=== PATIENT | male | born 1940 | race Caucasian/White ===

== ENCOUNTER 2017-11-09 16:49 | Inpatient (IN) | payer OTHER ==
[~2017-11-09] VITALS: Ht 167.6 cm; Wt 93.7 kg
[~2017-11-09 16:49] MED LIST: ACET325 PO; ALUM-MAG HYDRO360 ML PO; AMLO5 PO; ASPI81CH PO; ASPI81EC PO; ATOR40TA PO; BACITRACIN ZIN1 EACH TOP; BISA10S PR; CAND32 PO; CARV3.125 PO; CLOP75 PO; Combigan Eye Dro5 ML BOTHEARS; Coumadin2 MG PO; ELIQUIS5 MG PO; ERGO400 PO; ESCI20 PO; ESOM20 PO; FAMO20 PO; FURO40 PO; FURO80 PO; GABA100 PO; GLIM4 PO; INSULANI SC; INSULANPEN SC; JAKAFI20 MG PO; LEVSOD100 PO; LOPE2C PO; LOSA25 PO; METF500 PO; METF500C PO; METO2.5 PO; MUPIROCIN1 GM TOP; Milk Of Ma400 MG/5 M PO; NITR.4SL SL; Nitrostat0.4 MG SL; POTA10T PO; POTCHL10ER PO; POTCHL20ER PO; PROC25S PR; SIMV40 PO; THIA100 PO; VASELINE18 ML; WARF4 PO; [UNRECOGNIZED DRUG - REMARK] SC
[2017-11-09] MEDS ORDERED: METO2.5 PO (17:48)
[2017-11-09 17:49] LABS: BASOPHILS PERCENT AUTO 1 % (0-2); Hematocrit 22.3 % (37.0-53.0); Hemoglobin 7.1 g/dL (13.5-17.5); LYMPHOCYTES ABSOLUTE AUTO 1.54 K/mm3 (0.84-5.20); LYMPHOCYTES PERCENT AUTO 4 % (21-46); MONOCYTES ABSOLUTE AUTO 5.59 K/mm3 (0.16-1.47); MONOCYTES PERCENT AUTO 13 % (4-13); Mean Corpuscular HGB 24.6 pg (26.0-34.0); Mean Corpuscular HGB Conc 31.8 g/dL (31.5-36.5); Mean Corpuscular Volume 77 fL (80-100); NRBC Auto 1.8 /100 WBC (0.0-0.2); Platelet Count 380 K/mm3 (150-400); RDW Coefficient Variation 26.5 % (11.7-14.2); RDW Standard Deviation 71.5 fL (35.1-46.3); Red Blood Cell Count 2.89 M/mm3 (4.30-5.90)
[2017-11-09] MEDS ORDERED: METF500 PO (17:49)
[2017-11-09] MEDS ORDERED: BUME1 PO (17:49)
[2017-11-09 17:51] LABS: EOSINOPHILS ABSOLUTE AUTO 0.27 K/mm3 (0.00-0.68); EOSINOPHILS PERCENT AUTO 1 % (0-6); IMMATURE GRAN ABSOLUTE AUTO 5.44 K/mm3 (0.00-0.10); IMMATURE GRAN PERCENT AUTO 13 % (0-1); Mean Platelet Volume 10.3 fL (9.1-12.4); NEUTROPHILS ABSOLUTE AUTO 30.36 K/mm3 (1.96-9.15); NEUTROPHILS PERCENT AUTO 70 % (41-73)
[2017-11-09 18:02] LABS: Albumin, Blood 3.1 g/dL (3.4-5.0); Albumin/Globulin Ratio 0.7 (0.8-1.8); Bilirubin, Total 1.6 mg/dL (0.1-1.0); Bun/Creatinine Ratio 28.7 (12.0-20.0); Calcium, Blood 8.1 mg/dL (8.5-10.1); Creatinine, Blood 1.43 mg/dL (0.60-1.20); Globulin, Blood 4.4 g/dL (2.2-4.0); Magnesium, Blood 1.9 mg/dL (1.6-2.4); Potassium, Blood 3.5 mmol/L (3.5-5.5); Total Protein, Blood 7.5 g/dL (6.4-8.2); Troponin I 0.025 ng/mL (0.000-0.040)
[2017-11-09 19:28] LABS: BASOPHILS ABSOLUTE MAN 0.43 K/mm3 (0.00-0.23); BASOPHILS PERCENT MAN 1 % (0-2); EOSINOPHILS ABSOLUTE MAN 0.43 K/mm3 (0.00-0.68); EOSINOPHILS PERCENT MAN 1 % (0-6); LYMPHOCYTES ABSOLUTE MAN 7.37 K/mm3 (0.84-5.20); LYMPHOCYTES PERCENT MAN 17 % (21-46); MONOCYTES ABSOLUTE MAN 0.43 K/mm3 (0.16-1.47); MONOCYTES PERCENT MAN 1 % (4-13); NEUTROPHILS ABSOLUTE MAN 34.72 K/mm3 (1.96-9.15); SEG NEUTROPHILS PERCENT MAN 80 % (41-73); TOTAL CELLS COUNTED 100
[2017-11-09 21:35] LABS: Thyroid Stimulating Hormone 16.8 uIU/mL (0.360-4.800)
[2017-11-09 23:55] LABS: Creatine Kinase MB 2.8 ng/mL (0.0-3.6); Creatine Kinase MB Index 5.2 (0.0-4.0); Troponin I 0.024 ng/mL (0.000-0.040)
[2017-11-10 02:17] LABS: Source, Urine Clean Catch
[2017-11-10 02:19] LABS: Bilirubin, Urine Neg (Neg); Blood, Urine Neg (Neg); Glucose Qualitative, Urine Neg (Neg); Ketones, Urine Neg (Neg); Leukocyte Esterase, Urine 1+ (Neg); Nitrite, Urine Neg (Neg); Protein, Urine Neg (Neg); Urobilinogen, Urine NORM (Normal); pH, Urine 6.5 (5.0-8.0)
[2017-11-10 02:20] LABS: Appearance, Urine Clear (Clear); Color, Urine Yellow (P-Yellow)
[2017-11-10 02:41] LABS: Amorphous Light (0-Heavy); Bacteria Rare /hpf; Hyaline Casts 0-2 /lpf (0-2); Red Blood Cells, Urine Not Seen /hpf (0-2); Squamous Epithelial Cells Few /hpf (Few)
[2017-11-10 02:43] LABS: Transitional Epithelial Cells Few /hpf (0-Rare)
[2017-11-10 06:07] LABS: Albumin/Globulin Ratio 0.7 (0.8-1.8); Bilirubin, Total 1.5 mg/dL (0.1-1.0); Bun/Creatinine Ratio 28.1 (12.0-20.0); Calcium, Blood 8.3 mg/dL (8.5-10.1); Creatinine, Blood 1.39 mg/dL (0.60-1.20); Globulin, Blood 4.5 g/dL (2.2-4.0); Phosphorus, Blood 4.2 mg/dL (2.5-4.9); Total Protein, Blood 7.5 g/dL (6.4-8.2)
[2017-11-10 06:17] LABS: Creatine Kinase MB 2.7 ng/mL (0.0-3.6); Creatine Kinase MB Index 5.3 (0.0-4.0); Troponin I 0.029 ng/mL (0.000-0.040)
[2017-11-11 04:26] LABS: Mean Corpuscular HGB 23.7 pg (26.0-34.0); Mean Corpuscular HGB Conc 31.8 g/dL (31.5-36.5); Mean Corpuscular Volume 75 fL (80-100); Mean Platelet Volume 10.4 fL (9.1-12.4); NRBC ABSOLUTE 1.47 K/mm3 (0.00-0.02); NRBC Auto 3.3 /100 WBC (0.0-0.2); Platelet Count 397 K/mm3 (150-400); RDW Standard Deviation 70.5 fL (35.1-46.3); Red Blood Cell Count 2.95 M/mm3 (4.30-5.90); White Blood Cell Count 43.96 K/mm3 (4.00-11.30)
[2017-11-11 04:47] LABS: Anion Gap 10 mmol/L (6-16); Blood Urea Nitrogen 38 mg/dL (8-24); Bun/Creatinine Ratio 28.1 (12.0-20.0); CO2, Blood 28 mmol/L (21-32); Calcium, Blood 8.3 mg/dL (8.5-10.1); Chloride, Blood 91 mmol/L (98-108); Creatinine, Blood 1.35 mg/dL (0.60-1.20); Glomerular Filtration Rate 54 (60-); Glucose, Blood 106 mg/dL (70-99); Magnesium, Blood 1.8 mg/dL (1.6-2.4); Phosphorus, Blood 3.9 mg/dL (2.5-4.9); Potassium, Blood 3.1 mmol/L (3.5-5.5); Sodium, Blood 129 mmol/L (136-145)
[2017-11-11 05:32] LABS: BAND PERCENT MAN 8 % (0-8); BASOPHILS PERCENT MAN 0 % (0-2); EOSINOPHILS PERCENT MAN 0 % (0-6); LYMPHOCYTES ABSOLUTE MAN 2.63 K/mm3 (0.84-5.20); LYMPHOCYTES PERCENT MAN 6 % (21-46); METAMYELOCYTE ABSOLUTE MAN 1.31 K/mm3 (0.00-0.00); METAMYELOCYTE PERCENT MAN 3 % (0-0); MONOCYTES ABSOLUTE MAN 3.51 K/mm3 (0.16-1.47); MONOCYTES PERCENT MAN 8 % (4-13); NEUTROPHILS ABSOLUTE MAN 36.48 K/mm3 (1.96-9.15); SEG NEUTROPHILS PERCENT MAN 75 % (41-73); TOTAL CELLS COUNTED 100
[2017-11-12 05:21] LABS: Hematocrit 23.1 % (37.0-53.0); Hemoglobin 7.2 g/dL (13.5-17.5); Mean Corpuscular HGB 23.6 pg (26.0-34.0); Mean Corpuscular HGB Conc 31.2 g/dL (31.5-36.5); Mean Corpuscular Volume 76 fL (80-100); Mean Platelet Volume 10.8 fL (9.1-12.4); NRBC ABSOLUTE 1.75 K/mm3 (0.00-0.02); NRBC Auto 3.8 /100 WBC (0.0-0.2); Platelet Count 418 K/mm3 (150-400); RDW Coefficient Variation 26.8 % (11.7-14.2); Red Blood Cell Count 3.05 M/mm3 (4.30-5.90); White Blood Cell Count 46.44 K/mm3 (4.00-11.30)
[2017-11-12 05:43] LABS: BAND PERCENT MAN 8 % (0-8); BASOPHILS ABSOLUTE MAN 0.92 K/mm3 (0.00-0.23); BASOPHILS PERCENT MAN 2 % (0-2); EOSINOPHILS ABSOLUTE MAN 0.92 K/mm3 (0.00-0.68); EOSINOPHILS PERCENT MAN 2 % (0-6); LYMPHOCYTES ABSOLUTE MAN 2.78 K/mm3 (0.84-5.20); LYMPHOCYTES PERCENT MAN 6 % (21-46); METAMYELOCYTE ABSOLUTE MAN 0.92 K/mm3 (0.00-0.00); METAMYELOCYTE PERCENT MAN 2 % (0-0); MONOCYTES ABSOLUTE MAN 6.03 K/mm3 (0.16-1.47); MONOCYTES PERCENT MAN 13 % (4-13); NEUTROPHILS ABSOLUTE MAN 34.83 K/mm3 (1.96-9.15); SEG NEUTROPHILS PERCENT MAN 67 % (41-73); TOTAL CELLS COUNTED 100
[2017-11-12 05:55] LABS: Albumin, Blood 3.2 g/dL (3.4-5.0); Anion Gap 11 mmol/L (6-16); Blood Urea Nitrogen 43 mg/dL (8-24); Bun/Creatinine Ratio 29.3 (12.0-20.0); CO2, Blood 29 mmol/L (21-32); Chloride, Blood 88 mmol/L (98-108); Creatinine, Blood 1.47 mg/dL (0.60-1.20); Glomerular Filtration Rate 49 (60-); Glucose, Blood 139 mg/dL (70-99); Phosphorus, Blood 4.1 mg/dL (2.5-4.9); Potassium, Blood 3.2 mmol/L (3.5-5.5); Sodium, Blood 128 mmol/L (136-145)
[2017-11-13 04:49] LABS: Hematocrit 22.2 % (37.0-53.0); Hemoglobin 7.1 g/dL (13.5-17.5); Mean Corpuscular HGB 23.7 pg (26.0-34.0); Mean Corpuscular Volume 74 fL (80-100); NRBC ABSOLUTE 1.87 K/mm3 (0.00-0.02); NRBC Auto 4.5 /100 WBC (0.0-0.2); RDW Coefficient Variation 26.9 % (11.7-14.2); Red Blood Cell Count 2.99 M/mm3 (4.30-5.90); White Blood Cell Count 41.25 K/mm3 (4.00-11.30)
[2017-11-13 05:16] LABS: Albumin, Blood 2.9 g/dL (3.4-5.0); Albumin/Globulin Ratio 0.6 (0.8-1.8); Bilirubin, Total 1.7 mg/dL (0.1-1.0); Bun/Creatinine Ratio 32.6 (12.0-20.0); Calcium, Blood 8.8 mg/dL (8.5-10.1); Creatinine, Blood 1.38 mg/dL (0.60-1.20); Globulin, Blood 4.6 g/dL (2.2-4.0); Magnesium, Blood 1.7 mg/dL (1.6-2.4); Phosphorus, Blood 4.1 mg/dL (2.5-4.9); Potassium, Blood 3.5 mmol/L (3.5-5.5); Total Protein, Blood 7.5 g/dL (6.4-8.2)
[2017-11-13 05:45] LABS: BAND PERCENT MAN 7 % (0-8); BASOPHILS PERCENT MAN 0 % (0-2); EOSINOPHILS PERCENT MAN 3 % (0-6); LYMPHOCYTES PERCENT MAN 5 % (21-46); METAMYELOCYTE PERCENT MAN 2 % (0-0); MONOCYTES PERCENT MAN 14 % (4-13); MYELOCYTE PERCENT MAN 3 % (0-0); SEG NEUTROPHILS PERCENT MAN 66 % (41-73); TOTAL CELLS COUNTED 100
[2017-11-13 06:18] LABS: EOSINOPHILS ABSOLUTE AUTO 0.84 K/mm3 (0.00-0.68); EOSINOPHILS PERCENT AUTO 2 % (0-6); IMMATURE GRAN ABSOLUTE AUTO 6.12 K/mm3 (0.00-0.10); IMMATURE GRAN PERCENT AUTO 15 % (0-1); NEUTROPHILS ABSOLUTE AUTO 27.05 K/mm3 (1.96-9.15); NEUTROPHILS PERCENT AUTO 66 % (41-73); Platelet Count 289 K/mm3 (150-400)
[2017-11-14 05:29] LABS: Hematocrit 22.3 % (37.0-53.0); Hemoglobin 7.1 g/dL (13.5-17.5)
[2017-11-14 05:58] LABS: Magnesium, Blood 1.7 mg/dL (1.6-2.4)
[2017-11-14 05:59] LABS: Albumin, Blood 3.1 g/dL (3.4-5.0); Anion Gap 10 mmol/L (6-16); Blood Urea Nitrogen 48 mg/dL (8-24); CO2, Blood 28 mmol/L (21-32); Calcium, Blood 9.1 mg/dL (8.5-10.1); Chloride, Blood 89 mmol/L (98-108); Creatinine, Blood 1.37 mg/dL (0.60-1.20); Glomerular Filtration Rate 53 (60-); Glucose, Blood 228 mg/dL (70-99); Phosphorus, Blood 4.8 mg/dL (2.5-4.9); Potassium, Blood 3.6 mmol/L (3.5-5.5); Sodium, Blood 127 mmol/L (136-145)
[2017-11-15 05:38] LABS: Hemoglobin 7.4 g/dL (13.5-17.5)
[2017-11-15 05:59] LABS: Albumin, Blood 3.1 g/dL (3.4-5.0); Anion Gap 13 mmol/L (6-16); Blood Urea Nitrogen 49 mg/dL (8-24); Bun/Creatinine Ratio 33.6 (12.0-20.0); CO2, Blood 27 mmol/L (21-32); Calcium, Blood 9.1 mg/dL (8.5-10.1); Chloride, Blood 91 mmol/L (98-108); Creatinine, Blood 1.46 mg/dL (0.60-1.20); Glomerular Filtration Rate 49 (60-); Glucose, Blood 257 mg/dL (70-99); Magnesium, Blood 1.6 mg/dL (1.6-2.4); Phosphorus, Blood 4.3 mg/dL (2.5-4.9); Potassium, Blood 3.8 mmol/L (3.5-5.5); Sodium, Blood 131 mmol/L (136-145)
[2017-11-15 17:39] LABS: Source, Urine Catheter
[2017-11-15 17:51] LABS: Appearance, Urine Clear (Clear); Bilirubin, Urine Neg (Neg); Blood, Urine 1+ (Neg); Color, Urine Yellow (P-Yellow); Glucose Qualitative, Urine Neg (Neg); Ketones, Urine Neg (Neg); Leukocyte Esterase, Urine Neg (Neg); Nitrite, Urine Neg (Neg); Protein, Urine 2+ (Neg); Specific Gravity, Urine 1.015 (1.003-1.022); Urobilinogen, Urine NORM (Normal); pH, Urine 6.5 (5.0-8.0)
[2017-11-15 18:08] LABS: Bacteria Not Seen /hpf; Red Blood Cells, Urine Not Seen /hpf (0-2); Squamous Epithelial Cells Few /hpf (Few); White Blood Cells, Urine 0-2 /hpf (0-5)
[2017-11-16 05:38] LABS: Hematocrit 25.7 % (37.0-53.0); Hemoglobin 8.1 g/dL (13.5-17.5)
[2017-11-16 06:04] LABS: Albumin, Blood 2.9 g/dL (3.4-5.0); Anion Gap 8 mmol/L (6-16); Blood Urea Nitrogen 47 mg/dL (8-24); CO2, Blood 33 mmol/L (21-32); Calcium, Blood 8.8 mg/dL (8.5-10.1); Chloride, Blood 94 mmol/L (98-108); Creatinine, Blood 1.47 mg/dL (0.60-1.20); Glomerular Filtration Rate 49 (60-); Glucose, Blood 64 mg/dL (70-99); Magnesium, Blood 1.8 mg/dL (1.6-2.4); Phosphorus, Blood 3.9 mg/dL (2.5-4.9); Potassium, Blood 3.2 mmol/L (3.5-5.5); Sodium, Blood 135 mmol/L (136-145)
[2017-11-16] MEDS ORDERED: DOCU100 PO (14:35)
[2017-11-16] MEDS ORDERED: PARO20 PO (14:36)
[2017-11-16] MEDS ORDERED: SPIR25 PO (14:36)
[2017-11-16] MEDS ORDERED: LEVEMIR FL100 UNIT/1 SC (14:36)
[2018-08-29] MEDS ORDERED: Allopurinol100 MG PO (10:49)
[2018-08-29] MEDS ORDERED: FERRIC CITRATE210 MG PO (10:49)
[2018-08-29] MEDS ORDERED: METO2.5 PO (10:50)
[2018-09-08] MEDS ORDERED: CYAN1000I IM (13:31)
[2018-09-08] MEDS ORDERED: AURYXIA PO (13:31)
[2018-09-08] MEDS ORDERED: MIRT15 PO (13:32)
[2018-09-08] MEDS ORDERED: BUME2 PO (13:34)
[2018-09-08] MEDS ORDERED: LIDOCAINE PAIN1 EACH TOP (13:36)
[2018-09-08] MEDS ORDERED: INSULIN (15:28)
[2018-09-18] MEDS ORDERED: GABA100 PO (09:40)
[2018-09-18] MEDS ORDERED: Humalog100 UNIT/3 SC (09:41)
[2018-09-18] MEDS ORDERED: LIDO700A20 TOP (09:42)
[2018-09-18] MEDS ORDERED: MIRALAX17 GM PO (09:43)
[2018-09-18] MEDS ORDERED: SODBIC650 PO (09:43)
== END 2017-11-16 15:57 | disposition home or self-care (01) | DRG 291 ==
LOC: ER 16:49 → PCU 20:32 → MEDS 20:32 → PCU 23:00 → MEDS 11-13 16:37 → ENPENDDIS 11-16 10:16 → MEDS 11-16 15:57
PROVIDERS: Emergency Medicine; Family Medicine; Internal Medicine; Internal Medicine Nephrology
DX: I13.0 Hypertensive heart and chronic kidney disease with heart failure and stage 1 through stage 4 chronic kidney disease, or unspecified chronic kidney disease (principal); I50.43 Acute on chronic combined systolic (congestive) and diastolic (congestive) heart failure; N17.0 Acute kidney failure with tubular necrosis; E11.22 Type 2 diabetes mellitus with diabetic chronic kidney disease; C94.6 Myelodysplastic disease, not elsewhere classified; D75.81 Myelofibrosis; R16.1 Splenomegaly, not elsewhere classified; E87.1 Hypo-osmolality and hyponatremia; E88.09 Other disorders of plasma-protein metabolism, not elsewhere classified; N18.3 Chronic kidney disease, stage 3 (moderate); D63.8 Anemia in other chronic diseases classified elsewhere; F02.80 Dementia in other diseases classified elsewhere, unspecified severity, without behavioral disturbance, psychotic disturbance, mood disturbance, and anxiety; G30.9 Alzheimer's disease, unspecified; E87.6 Hypokalemia; F41.9 Anxiety disorder, unspecified; F32.9 Major depressive disorder, single episode, unspecified; E78.5 Hyperlipidemia, unspecified; E03.9 Hypothyroidism, unspecified; I25.10 Atherosclerotic heart disease of native coronary artery without angina pectoris; G89.29 Other chronic pain; M54.9 Dorsalgia, unspecified; I25.5 Ischemic cardiomyopathy; I48.2 Chronic atrial fibrillation; E11.65 Type 2 diabetes mellitus with hyperglycemia; Z86.73 Personal history of transient ischemic attack (TIA), and cerebral infarction without residual deficits; Z95.5 Presence of coronary angioplasty implant and graft; Z95.1 Presence of aortocoronary bypass graft; Z88.0 Allergy status to penicillin; Z88.2 Allergy status to sulfonamides; Z88.8 Allergy status to other drugs, medicaments and biological substances; Z95.0 Presence of cardiac pacemaker; Z79.4 Long term (current) use of insulin; Z79.82 Long term (current) use of aspirin; Z79.84 Long term (current) use of oral hypoglycemic drugs; Z79.899 Other long term (current) drug therapy; E66.9 Obesity, unspecified; Z68.33 Body mass index [BMI] 33.0-33.9, adult; Z78.1 Physical restraint status
CPT/HCPCS: 36415; 36430; 51798; 71046; 74176; 76770; 80053; 80069; 81001; 82550; 82553; 82947; 83036; 83735; 83880; 84100; 84132; 84443; 84484; 85014; 85018; 85025; 86850; 86900; 86901; 86923; 87040; 87077; 87086; 92610; 93005; 93010; 93306; 96374; 99285; G8996; G8997; J0881; J1650; J1815; J3480; J7030; P9016

== ENCOUNTER 2018-10-30 21:34 | Emergency (ER) | payer OTHER ==
[~2018-10-30] VITALS: Ht 167.6 cm; Wt 198.2 kg
[~2018-10-30 21:34] MED LIST changes: -ASPI81CH PO; +Allopurinol100 MG PO; +Aspirin EC81 MG PO; +BUME1 PO; +BUME2 PO; +CYAN1000I IM; +DOCU100 PO; +FERRIC CITRATE210 MG PO; +Humalog100 UNIT/3 SC; +INSULIN; +LEVEMIR FL100 UNIT/1 SC; +LIDO700A20 TOP; +LIDOCAINE PAIN1 EACH TOP; +MIRALAX17 GM PO; +MIRT15 PO; +PARO20 PO; +SODBIC650 PO; +SPIR25 PO; +Synthroid112 MCG PO
[2018-10-30] MEDS ORDERED: CYAN1000I IM (22:21)
[2018-10-30] MEDS ORDERED: Novolog100 UNIT/2 SC (22:29)
[2018-10-30] MEDS ORDERED: INSULANPEN SC (22:30)
[2018-10-30] MEDS ORDERED: Loperamide2 MG PO (22:33)
[2018-10-30] MEDS ORDERED: Biscolax10 MG PR (22:33)
[2018-10-30] MEDS ORDERED: Antacid Maximu355 ML PO (22:34)
[2018-10-30] MEDS ORDERED: LORA.5 PO (22:36)
[2018-10-30] MEDS ORDERED: Milk Of Ma400 MG/5 M PO (22:37)
[2018-10-30] MEDS ORDERED: NITR.4SL SL (22:38)
[2018-10-30 23:31] LABS: BASOPHILS ABSOLUTE AUTO 0.85 K/mm3 (0.00-0.23); BASOPHILS PERCENT AUTO 1 % (0-2); EOSINOPHILS ABSOLUTE AUTO 4.17 K/mm3 (0.00-0.68); EOSINOPHILS PERCENT AUTO 7 % (0-6); Hematocrit 38.1 % (37.0-53.0); Hemoglobin 11.8 g/dL (13.5-17.5); IMMATURE GRAN ABSOLUTE AUTO 6.37 K/mm3 (0.00-0.10); IMMATURE GRAN PERCENT AUTO 11 % (0-1); LYMPHOCYTES ABSOLUTE AUTO 1.55 K/mm3 (0.84-5.20); LYMPHOCYTES PERCENT AUTO 3 % (21-46); MONOCYTES ABSOLUTE AUTO 4.74 K/mm3 (0.16-1.47); MONOCYTES PERCENT AUTO 8 % (4-13); Mean Corpuscular HGB 29.8 pg (26.0-34.0); Mean Corpuscular Volume 96 fL (80-100); Mean Platelet Volume 11.6 fL (9.1-12.4); NEUTROPHILS ABSOLUTE AUTO 41.91 K/mm3 (1.96-9.15); NEUTROPHILS PERCENT AUTO 70 % (41-73); NRBC ABSOLUTE 0.74 K/mm3 (0.00-0.02); NRBC Auto 1.2 /100 WBC (0.0-0.2); Platelet Count 352 K/mm3 (150-400); RDW Coefficient Variation 22.2 % (11.7-14.2); Red Blood Cell Count 3.96 M/mm3 (4.30-5.90)
[2018-10-30 23:32] LABS: White Blood Cell Count 59.59 K/mm3 (4.00-11.30)
[2018-10-30 23:45] LABS: Alanine Aminotransfer (ALT/SGP 32 U/L (12-78); Albumin, Blood 2.7 g/dL (3.4-5.0); Albumin/Globulin Ratio 0.6 (0.8-1.8); Alk Phos 224 U/L (50-136); Anion Gap 10 mmol/L (6-16); Aspartate Aminotrans (AST/SGOT 47 U/L (12-37); Bilirubin, Total 0.7 mg/dL (0.1-1.0); Blood Urea Nitrogen 55 mg/dL (8-24); Bun/Creatinine Ratio 21.5 (12.0-20.0); CO2, Blood 26 mmol/L (21-32); Calcium, Blood 7.8 mg/dL (8.5-10.1); Chloride, Blood 104 mmol/L (98-108); Creatinine, Blood 2.56 mg/dL (0.60-1.20); Globulin, Blood 4.8 g/dL (2.2-4.0); Glomerular Filtration Rate 26 (60-); Glucose, Blood 143 mg/dL (70-99); Potassium, Blood 4.1 mmol/L (3.5-5.5); Sodium, Blood 140 mmol/L (136-145); Total Protein, Blood 7.5 g/dL (6.4-8.2); Troponin I <0.015 ng/mL (0.000-0.040)
[2018-10-30 23:47] LABS: BAND PERCENT MAN 9 % (0-8); BASOPHILS ABSOLUTE MAN 0.59 K/mm3 (0.00-0.23); BASOPHILS PERCENT MAN 1 % (0-2); EOSINOPHILS ABSOLUTE MAN 1.19 K/mm3 (0.00-0.68); EOSINOPHILS PERCENT MAN 2 % (0-6); LYMPHOCYTES ABSOLUTE MAN 2.38 K/mm3 (0.84-5.20); LYMPHOCYTES PERCENT MAN 4 % (21-46); METAMYELOCYTE ABSOLUTE MAN 2.97 K/mm3 (0.00-0.00); METAMYELOCYTE PERCENT MAN 5 % (0-0); MONOCYTES ABSOLUTE MAN 4.17 K/mm3 (0.16-1.47); MONOCYTES PERCENT MAN 7 % (4-13); MYELOCYTE ABSOLUTE MAN 1.19 K/mm3 (0.00-0.00); MYELOCYTE PERCENT MAN 2 % (0-0); NEUTROPHILS ABSOLUTE MAN 47.07 K/mm3 (1.96-9.15); SEG NEUTROPHILS PERCENT MAN 70 % (41-73); TOTAL CELLS COUNTED 100
== END 2018-10-31 02:32 | disposition home or self-care (01) ==
LOC: ER 21:34
PROVIDERS: Emergency Medicine
DX: E11.22 Type 2 diabetes mellitus with diabetic chronic kidney disease (principal); N18.9 Chronic kidney disease, unspecified; R60.1 Generalized edema; I95.9 Hypotension, unspecified; Z88.0 Allergy status to penicillin; Z88.2 Allergy status to sulfonamides; Z88.1 Allergy status to other antibiotic agents; Z79.899 Other long term (current) drug therapy; Z79.4 Long term (current) use of insulin; Z79.82 Long term (current) use of aspirin; I25.2 Old myocardial infarction; F03.90 Unspecified dementia, unspecified severity, without behavioral disturbance, psychotic disturbance, mood disturbance, and anxiety; Z86.73 Personal history of transient ischemic attack (TIA), and cerebral infarction without residual deficits
CPT/HCPCS: 36415; 71046; 76705; 80053; 83880; 84484; 85025; 93005; 93010; 99285-25

== ENCOUNTER 2018-12-05 08:38 | Inpatient (IN) | payer OTHER ==
[~2018-12-05] VITALS: Ht 172.7 cm; Wt 84.2 kg
[~2018-12-05 08:38] MED LIST changes: +Antacid Maximu355 ML PO; +Biscolax10 MG PR; +LORA.5 PO; +Loperamide2 MG PO; +Novolog100 UNIT/2 SC
[2018-12-05 09:02] LABS: Hematocrit 39.9 % (37.0-53.0); Hemoglobin 12.4 g/dL (13.5-17.5); Mean Corpuscular HGB 28.8 pg (26.0-34.0); Mean Corpuscular HGB Conc 31.1 g/dL (31.5-36.5); Mean Corpuscular Volume 93 fL (80-100); Mean Platelet Volume 10.4 fL (9.1-12.4); NRBC ABSOLUTE 0.51 K/mm3 (0.00-0.02); NRBC Auto 0.8 /100 WBC (0.0-0.2); Platelet Count 233 K/mm3 (150-400); RDW Coefficient Variation 22.8 % (11.7-14.2); RDW Standard Deviation 75.4 fL (35.1-46.3)
[2018-12-05 09:11] LABS: White Blood Cell Count 61.47 K/mm3 (4.00-11.30)
[2018-12-05 09:28] LABS: BAND PERCENT MAN 6 % (0-8); BASOPHILS ABSOLUTE MAN 0.61 K/mm3 (0.00-0.23); BASOPHILS PERCENT MAN 1 % (0-2); EOSINOPHILS PERCENT MAN 0 % (0-6); LYMPHOCYTES ABSOLUTE MAN 1.22 K/mm3 (0.84-5.20); LYMPHOCYTES PERCENT MAN 2 % (21-46); METAMYELOCYTE ABSOLUTE MAN 0.61 K/mm3 (0.00-0.00); METAMYELOCYTE PERCENT MAN 1 % (0-0); MONOCYTES ABSOLUTE MAN 1.84 K/mm3 (0.16-1.47); MONOCYTES PERCENT MAN 3 % (4-13); MYELOCYTE PERCENT MAN 7 % (0-0); NEUTROPHILS ABSOLUTE MAN 52.24 K/mm3 (1.96-9.15); PROMYELOCYTE ABSOLUTE MAN 0.61 K/mm3 (0.00-0.00); PROMYELOCYTE PERCENT MAN 1 % (0-0); SEG NEUTROPHILS PERCENT MAN 79 % (41-73); TOTAL CELLS COUNTED 100
[2018-12-05 09:34] LABS: Source, Urine Catheter
[2018-12-05 09:40] LABS: Albumin, Blood 2.8 g/dL (3.4-5.0); Albumin/Globulin Ratio 0.6 (0.8-1.8); Bilirubin, Total 0.9 mg/dL (0.1-1.0); Calcium, Blood 8.1 mg/dL (8.5-10.1); Creatinine, Blood 2.84 mg/dL (0.60-1.20); Globulin, Blood 4.8 g/dL (2.2-4.0); Potassium, Blood 4.4 mmol/L (3.5-5.5); Total Protein, Blood 7.6 g/dL (6.4-8.2)
[2018-12-05 09:46] LABS: Appearance, Urine Clear (Clear); Bilirubin, Urine Neg (Neg); Blood, Urine 1+ (Neg); Color, Urine Yellow (P-Yellow); Glucose Qualitative, Urine Neg (Neg); Ketones, Urine Neg (Neg); Leukocyte Esterase, Urine Neg (Neg); Nitrite, Urine Neg (Neg); Protein, Urine 3+ (Neg); Urobilinogen, Urine 1+ (Normal)
[2018-12-05 10:27] LABS: Red Blood Cells, Urine 0-2 /hpf (0-2); White Blood Cells, Urine Rare /hpf (0-5)
[2018-12-05 10:28] LABS: Squamous Epithelial Cells Not Seen /hpf (Few)
[2018-12-05 10:29] LABS: Amorphous Light (0-Heavy)
[2018-12-05 10:32] LABS: Bacteria Mod /hpf
[2018-12-05 10:53] LABS: U Amphetamine Screen Not Detected; U Barbituate Screen Not Detected; U Benzodiazapine Screen Not Detected; U Buprenorphine Screen Not Detected; U Cannabinoids Screen Not Detected; U Cocaine Screen Not Detected; U Methadone Screen Not Detected; U Methamphetamine Screen Not Detected; U Opiates Screen Not Detected; U Oxycodone Screen Not Detected; U Phencyclidine Screen Not Detected; U Propoxyphene Screen Not Detected
--- NOTE | 2018-12-05 15:13 | NUR ---
Telephone report recieved from RASHAD Blanco, at this time. Anticipate admission of patient to PCU 4 shortly.
[2018-12-05] MEDS ORDERED: BUME2 PO (15:59)
--- NOTE | 2018-12-05 17:41 | NUR ---
The patient was admitted to PCU 4 shortly after 3 pm today. His daughter and son-in-law were accompanying him. The pt was awake, talking, joking around, and appropriate in conversation. Hourly blood sugar have been checked and he has started to eat. Call to Dr. Eagle regarding his IVF and the daughter's concerns because of a recent problem with IVF and fluid overload during a recent admission. The pt is closely followed by Dr. Webb as an outpatient for chronic kidney failure. He also has CHF. The daughter, who is the pt's POA, also was not wanting the pt to receive lovenox due to his blood disorder. These concerns were discussed with the hospitalist. The pt has been eating and has a hearty appetite.
[2018-12-06 04:11] LABS: BASOPHILS ABSOLUTE AUTO 0.76 K/mm3 (0.00-0.23); BASOPHILS PERCENT AUTO 2 % (0-2); Hematocrit 35.3 % (37.0-53.0); Hemoglobin 11.3 g/dL (13.5-17.5); Mean Corpuscular HGB 28.6 pg (26.0-34.0); Mean Platelet Volume 12.5 fL (9.1-12.4); NRBC ABSOLUTE 0.55 K/mm3 (0.00-0.02); NRBC Auto 1.1 /100 WBC (0.0-0.2); Platelet Count 282 K/mm3 (150-400); RDW Coefficient Variation 23.1 % (11.7-14.2); Red Blood Cell Count 3.95 M/mm3 (4.30-5.90); White Blood Cell Count 48.73 K/mm3 (4.00-11.30)
[2018-12-06 04:13] LABS: EOSINOPHILS ABSOLUTE AUTO 3.45 K/mm3 (0.00-0.68); EOSINOPHILS PERCENT AUTO 7 % (0-6); IMMATURE GRAN PERCENT AUTO 14 % (0-1); LYMPHOCYTES ABSOLUTE AUTO 2.07 K/mm3 (0.84-5.20); LYMPHOCYTES PERCENT AUTO 4 % (21-46); MONOCYTES ABSOLUTE AUTO 4.16 K/mm3 (0.16-1.47); MONOCYTES PERCENT AUTO 9 % (4-13); Mean Corpuscular Volume 89 fL (80-100); NEUTROPHILS ABSOLUTE AUTO 31.69 K/mm3 (1.96-9.15); NEUTROPHILS PERCENT AUTO 65 % (41-73)
[2018-12-06 04:28] LABS: Calcium, Blood 8.1 mg/dL (8.5-10.1); Creatinine, Blood 2.72 mg/dL (0.60-1.20); Potassium, Blood 4.5 mmol/L (3.5-5.5)
[2018-12-06 04:54] LABS: BAND PERCENT MAN 9 % (0-8); BASOPHILS ABSOLUTE MAN 0.48 K/mm3 (0.00-0.23); BASOPHILS PERCENT MAN 1 % (0-2); EOSINOPHILS ABSOLUTE MAN 4.38 K/mm3 (0.00-0.68); EOSINOPHILS PERCENT MAN 9 % (0-6); LYMPHOCYTES ABSOLUTE MAN 2.43 K/mm3 (0.84-5.20); LYMPHOCYTES PERCENT MAN 5 % (21-46); METAMYELOCYTE ABSOLUTE MAN 0.48 K/mm3 (0.00-0.00); METAMYELOCYTE PERCENT MAN 1 % (0-0); MONOCYTES ABSOLUTE MAN 3.89 K/mm3 (0.16-1.47); MONOCYTES PERCENT MAN 8 % (4-13); MYELOCYTE ABSOLUTE MAN 0.97 K/mm3 (0.00-0.00); MYELOCYTE PERCENT MAN 2 % (0-0); NEUTROPHILS ABSOLUTE MAN 35.57 K/mm3 (1.96-9.15); SEG NEUTROPHILS PERCENT MAN 64 % (41-73); TOTAL CELLS COUNTED 150
--- NOTE | 2018-12-06 05:56 | NUR ---
PCU NOC SHIFT SUMMARY PATIENT ALERT AND ORIENTED TO SELF. PATIENT CONFUSED AT TIMES TO LOCATION AND TIME/DATE. CONVERSATION IS WNL. PATIENT DENIES ANY PAIN T/O SHIFT. RESP E/U ON ROOM AIR - VSS. NO ACUTE DISTRESS. PATIENTS CBG'S STABLE T/O SHIFT AND CHANGED TO Q4 HOUR CHECKS. NO ACUTE CHANGES NOTED T/O SHIFT. WILL CONTINUE TO MONTIOR AND GIVE REPORT TO DAYSHIFT RN.
--- NOTE | 2018-12-06 08:30 | NUR ---
ASSUMED CARE: REPORT RECEIVED FROM ENRRIQUE Morales RN. ASSUMED CARE OF THIS PT AT APPROX 0700. ON ASSESSMENT, HE IS RESTING QUIETLY. HE STS MILD "ACHINESS" TO R ARM R/T HX OF ARTHRITIS, DENIES NEED FOR PAIN MEDS. CBG CHECKS HAVE BEEN STABLE. PT IS TOLERATING PO INTAKE WELL & HAS A HEALTHY APPETITE. WILL CONTINUE TO MONITOR & UPDATE NEEDED.
--- NOTE | 2018-12-06 09:00 | NUR ---
DR. BOYD / UPDATE: PROVIDER AT BEDSIDE, UPDATED ON POC. SHE STS THE PT FEBRUARY D/C BACK TO [facility] TODAY R/T STABLE CBGs. WILL SPOT CHECK CBG PRIOR TO D/C. CALL TO PT's DAUGHTER TO NOTIFY HER OF PLAN FOR PT TO D/C HOME TO [facility]. SHE DENIES FURTHER QUESTIONS & REQUESTS A PHONE CALL WHEN TIME FOR TRANSPORT HAS BEEN ARRANGED. WILL CONTINUE TO MONITOR & UDPATE NEEDED.
--- NOTE | 2018-12-06 11:01 | NUR ---
Spiritual care visit conducted. Patient was lying on his bed and alert when I entered the patient's room. I introduced myself and explained about the department I am from and patient welcomed me. Patient mentioned that he was sick and that "they" were giving him medicine to help him feel better. Patient struggled some to communicate so after a brief life/family review, lexy exploration and providing prayer, I concluded my visit. Patient responded well to the prayer and showed signs of restored lexy. Patient thanked me for the visit.
--- NOTE | 2018-12-06 11:15 | NUR ---
[facility]: ATTEMPTED TO CALL & GIVE REPORT TO [facility] REGARDING THIS PT RETURNING. PHONE NUMBER HAS BEEN LEFT, WILL ATTEMPT AGAIN IF NO RETURN CALL. D/C PAPERWORK BEING COMPLETED AT THIS TIME. WILL CONTINUE TO MONITOR & UPDATE NEEDED.
--- NOTE | 2018-12-06 11:48 | NUR ---
REPORT TO [facility]: REPORT HAS BEEN CALLED TO RASHAD ERAZO AT [facility]. SHE IS UPDATED ON PT's CONDITION & HAS BEEN NOTIFIED OF CHANGES TO PT's INSULIN REGIMEN. SHE DENIES FURTHER QUESTIONS & STS SHE DOES NOT NEED A CALL W/ TRANSPORT TIME, THAT THE FACILITY WILL BE ANTICIPATING HIS ARRIVAL THIS AFTERNOON. WILL CONTINUE TO MONITOR & UPDATE NEEDED UNTIL TRANSPORT.
--- NOTE | 2018-12-06 12:14 | NUR ---
DISCHARGE TO [facility]': REPORT HAS BEEN CALLED, PT HAS NO BELONGINGS HERE TO TAKE HOME W/ HIM. DAUGHTER HAS BEEN NOTIFIED OF PT's EXPECTED ARRIVAL TIME BACK TO FACILITY, SHE WISHES TO MEET HIM THERE. CBG REMAINS STABLE. [facility]'s PLANS TO SAVE LUNCH FOR WHEN THE PT RETURNS. PIV x2 HAVE BEEN REMOVED & D/C PACKET TAKEN W/ [employer] [facility]. TELE HAS BEEN REMOVED.
== END 2018-12-06 12:10 | disposition home or self-care (01) | DRG 637 ==
LOC: ER 08:38 → PCU 12:48 → ERHOLD 12:48 → PCU 15:10
PROVIDERS: Emergency Medicine; ADMIT Family Medicine
DX: E11.649 Type 2 diabetes mellitus with hypoglycemia without coma (principal); G93.41 Metabolic encephalopathy; I13.0 Hypertensive heart and chronic kidney disease with heart failure and stage 1 through stage 4 chronic kidney disease, or unspecified chronic kidney disease; E11.22 Type 2 diabetes mellitus with diabetic chronic kidney disease; N18.4 Chronic kidney disease, stage 4 (severe); I50.9 Heart failure, unspecified; D46.9 Myelodysplastic syndrome, unspecified; D63.1 Anemia in chronic kidney disease; E03.9 Hypothyroidism, unspecified; E78.5 Hyperlipidemia, unspecified; E11.40 Type 2 diabetes mellitus with diabetic neuropathy, unspecified; F03.90 Unspecified dementia, unspecified severity, without behavioral disturbance, psychotic disturbance, mood disturbance, and anxiety; I25.10 Atherosclerotic heart disease of native coronary artery without angina pectoris; I25.5 Ischemic cardiomyopathy; I48.91 Unspecified atrial fibrillation; Z86.73 Personal history of transient ischemic attack (TIA), and cerebral infarction without residual deficits; Z95.1 Presence of aortocoronary bypass graft; Z95.810 Presence of automatic (implantable) cardiac defibrillator; Z79.4 Long term (current) use of insulin; Z95.5 Presence of coronary angioplasty implant and graft
CPT/HCPCS: 36415; 51702; 70450; 71045; 80048; 80053; 81001; 82947; 83036; 85025; 93005; 93010; 96374; 96376; 99285-25

== ENCOUNTER 2018-12-08 12:00 | Observation (INO) | payer OTHER ==
[~2018-12-08] VITALS: Ht 165.1 cm; Wt 99.5 kg
[2018-12-08 12:25] LABS: Hematocrit 35.9 % (37.0-53.0); Hemoglobin 11.3 g/dL (13.5-17.5); Mean Corpuscular HGB 28.6 pg (26.0-34.0); Mean Corpuscular HGB Conc 31.5 g/dL (31.5-36.5); Mean Corpuscular Volume 91 fL (80-100); Mean Platelet Volume 11.9 fL (9.1-12.4); NRBC ABSOLUTE 0.57 K/mm3 (0.00-0.02); Platelet Count 258 K/mm3 (150-400); RDW Coefficient Variation 22.8 % (11.7-14.2); RDW Standard Deviation 73.4 fL (35.1-46.3); Red Blood Cell Count 3.95 M/mm3 (4.30-5.90)
[2018-12-08 12:48] LABS: White Blood Cell Count 59.81 K/mm3 (4.00-11.30)
[2018-12-08 12:52] LABS: International Normalized Ratio 1.44; Prothrombin Time Results 14.8 Sec (9.7-11.5)
[2018-12-08 12:54] LABS: Albumin, Blood 2.7 g/dL (3.4-5.0); Albumin/Globulin Ratio 0.6 (0.8-1.8); Bilirubin, Total 0.8 mg/dL (0.1-1.0); Bun/Creatinine Ratio 19.6 (12.0-20.0); Calcium, Blood 7.9 mg/dL (8.5-10.1); Creatinine, Blood 2.55 mg/dL (0.60-1.20); Globulin, Blood 4.7 g/dL (2.2-4.0); Potassium, Blood 4.2 mmol/L (3.5-5.5); Total Protein, Blood 7.4 g/dL (6.4-8.2)
[2018-12-08 13:09] LABS: BAND PERCENT MAN 14 % (0-8); BASOPHILS PERCENT MAN 0 % (0-2); EOSINOPHILS ABSOLUTE MAN 4.18 K/mm3 (0.00-0.68); EOSINOPHILS PERCENT MAN 7 % (0-6); LYMPHOCYTES ABSOLUTE MAN 3.58 K/mm3 (0.84-5.20); LYMPHOCYTES PERCENT MAN 6 % (21-46); METAMYELOCYTE ABSOLUTE MAN 4.18 K/mm3 (0.00-0.00); METAMYELOCYTE PERCENT MAN 7 % (0-0); MONOCYTES ABSOLUTE MAN 5.38 K/mm3 (0.16-1.47); MONOCYTES PERCENT MAN 9 % (4-13); MYELOCYTE ABSOLUTE MAN 3.58 K/mm3 (0.00-0.00); MYELOCYTE PERCENT MAN 6 % (0-0); NEUTROPHILS ABSOLUTE MAN 38.87 K/mm3 (1.96-9.15); SEG NEUTROPHILS PERCENT MAN 51 % (41-73); TOTAL CELLS COUNTED 100
--- NOTE | 2018-12-08 19:45 | NUR ---
SHIFT SUMMARY PATIENT A&O TO SELF AND FAMILY. DENIES ANY PAIN, SOB, OR NAUSEA. PATIENT APPEARS TO BE CONFUSED AND VERY SLEEPY WHICH FAMILY STATES IS NOT HIS BASELINE. RN MEDICATED PER EMAR. NO ACUTE CHANGES.
--- NOTE | 2018-12-09 04:45 | NUR ---
SHIFT SUMMARY A/O, ABLE TO MAKE NEEDS KNOWN. COOPERATIVE WITH CARE. ANSWERS QUESTIONS APPROPRIATELY. NO C/O PAIN/DISCOMFORT. PICTURE OF COCCYX TAKEN AND PLACED IN CHART HAS AN OLD UNSTAGEABLE PRESSURE ULCER THERE. PLACED MEPILEX FOR PREVENTION. APPEARS LETHARTIC, BUT AWAKENS EASILY WITH VERBAL STIMULI. NO ACUTE CHANGES NOTED OVERNIGHT. REMAINS HYPOTENSIVE, BUT APPEARS ON TREND WITH PREVIOUS PRESSURES. BED IN LOWEST POSITION. ALARM ON. CALL LIGHT IN REACH. WCTM. REPORT TO ONCOMING RN.
[2018-12-09 05:09] LABS: Hematocrit 35.2 % (37.0-53.0); Hemoglobin 11.1 g/dL (13.5-17.5); Mean Corpuscular HGB 28.8 pg (26.0-34.0); Mean Corpuscular HGB Conc 31.5 g/dL (31.5-36.5); Mean Corpuscular Volume 91 fL (80-100); Mean Platelet Volume 10.8 fL (9.1-12.4); NRBC ABSOLUTE 0.58 K/mm3 (0.00-0.02); Platelet Count 222 K/mm3 (150-400); RDW Coefficient Variation 23.2 % (11.7-14.2); RDW Standard Deviation 75.1 fL (35.1-46.3); Red Blood Cell Count 3.85 M/mm3 (4.30-5.90)
[2018-12-09 05:31] LABS: White Blood Cell Count 58.96 K/mm3 (4.00-11.30)
[2018-12-09 05:33] LABS: BAND PERCENT MAN 12 % (0-8); BASOPHILS ABSOLUTE MAN 0.58 K/mm3 (0.00-0.23); BASOPHILS PERCENT MAN 1 % (0-2); EOSINOPHILS ABSOLUTE MAN 1.76 K/mm3 (0.00-0.68); EOSINOPHILS PERCENT MAN 3 % (0-6); LYMPHOCYTES ABSOLUTE MAN 0.58 K/mm3 (0.84-5.20); LYMPHOCYTES PERCENT MAN 1 % (21-46); METAMYELOCYTE ABSOLUTE MAN 0.58 K/mm3 (0.00-0.00); METAMYELOCYTE PERCENT MAN 1 % (0-0); MONOCYTES ABSOLUTE MAN 1.17 K/mm3 (0.16-1.47); MONOCYTES PERCENT MAN 2 % (4-13); NEUTROPHILS ABSOLUTE MAN 54.24 K/mm3 (1.96-9.15); SEG NEUTROPHILS PERCENT MAN 80 % (41-73); TOTAL CELLS COUNTED 100
[2018-12-09 05:34] LABS: Albumin, Blood 2.6 g/dL (3.4-5.0); Albumin/Globulin Ratio 0.6 (0.8-1.8); Bilirubin, Total 0.9 mg/dL (0.1-1.0); Bun/Creatinine Ratio 20.1 (12.0-20.0); Creatinine, Blood 2.69 mg/dL (0.60-1.20); Globulin, Blood 4.5 g/dL (2.2-4.0); Potassium, Blood 4.2 mmol/L (3.5-5.5); Total Protein, Blood 7.1 g/dL (6.4-8.2)
--- NOTE | 2018-12-09 16:23 | NUR ---
Echocardiogram completed.
--- NOTE | 2018-12-09 19:07 | NUR ---
SHIFT SUMMARY PATIENT A&O X3. APPEARS SLEEPY THIS SHIFT. RESTED ON AND OFF. DENIES ANY PAIN, SOB, OR NAUSEA. FAMILY AT THE BEDSIDE. UP IN CHAIR FOR LUNCH. 2 PA PIVOT. [address] STEPHENS FOR LOW BP. MEPILEX ON COCCYX, UNSTAGEABLE PRESSURE ULCER. PURPLE IN COLOR. FAMILY REFUSED ORDERED FLUIDS. NO OTHER ACUTE CHANGES THIS SHIFT. BED ALARM ON, CALL LIGHT WITHIN REACH.
--- NOTE | 2018-12-10 05:12 | NUR ---
SHIFT SUMMARY A/O, ABLE TO MAKE NEEDS KNOWN. APPEARS MORE ALERT THIS SHIFT. NO CONFUSION OR FORGETFULNESS NOTED. COOPERATIVE WITH CARE. ANSWERS QUESTIONS APPROPRIATELY. NO C/O PAIN/DISCOMFORT. APPEARED TO REST OFF AN ON THROUGHOUT SHIFT. VSS/AFEBRILE. NO ACUTE CHANGES OVERNIGHT. BED IN LOWEST POSITION. ALARM ON. CALL LIGHT WITHIN REACH. WCTM. REPORT TO ONCOMING RN.
[2018-12-10 05:44] LABS: Bun/Creatinine Ratio 22.1 (12.0-20.0); Calcium, Blood 8.2 mg/dL (8.5-10.1); Creatinine, Blood 2.71 mg/dL (0.60-1.20); Potassium, Blood 4.4 mmol/L (3.5-5.5)
--- NOTE | 2018-12-10 17:13 | NUR ---
PT HAS BEEN DOING WELL. AOX3 AND COOPERATIVE OF CARE. PT DID START OUT A BIT RESISTANT TO CARE, BUT WAS ABLE TO BE REDIRECTED INTO POSITIVE INTERACTIONS. PT HAS BEEN UP IN HIS CHAIR FOR MEALS AND HAS BEEN DOING WELL EATING MEALS SUPERVISED. NO DISTRESS NOTE AT THIS TIME. TWO PERSON TRANSFER.
--- NOTE | 2018-12-11 04:57 | NUR ---
SHIFT SUMMARY A/O, ABLE TO MAKE NEEDS KNOWN. CONFUSION/FORGETFULLNESS NOTED AT TIMES. COOPERATIVE WITH CARE. NO C/O PAIN/DISCOMFORT. ANSWERS QUESTIONS APPROPRIATELY. NO ACUTE CHANGES NOTED OVERNIGHT. VSS/AFEBRILE. BLOOD GLUCOSE 219. DID NOT APPEAR TO REST MUCH THIS SHIFT. BED IN LOWEST POSITION. ALARM ON. CALL LIGHT WITHIN REACH. WCTM. REPORT TO ONCOMING RN.
[2018-12-11 05:34] LABS: Hematocrit 38.4 % (37.0-53.0); Mean Corpuscular HGB Conc 31.3 g/dL (31.5-36.5); Mean Corpuscular Volume 90 fL (80-100); Mean Platelet Volume 11.6 fL (9.1-12.4); NRBC ABSOLUTE 0.94 K/mm3 (0.00-0.02); NRBC Auto 1.5 /100 WBC (0.0-0.2); Platelet Count 308 K/mm3 (150-400); RDW Coefficient Variation 23.5 % (11.7-14.2); RDW Standard Deviation 74.3 fL (35.1-46.3); Red Blood Cell Count 4.28 M/mm3 (4.30-5.90)
[2018-12-11 05:37] LABS: White Blood Cell Count 63.48 K/mm3 (4.00-11.30)
[2018-12-11 06:31] LABS: Anion Gap 11 mmol/L (6-16); CO2, Blood 20 mmol/L (21-32); Chloride, Blood 101 mmol/L (98-108); Glucose, Blood 183 mg/dL (70-99); Potassium, Blood 4.4 mmol/L (3.5-5.5); Sodium, Blood 132 mmol/L (136-145)
[2018-12-11 06:32] LABS: Albumin, Blood 2.7 g/dL (3.4-5.0); Blood Urea Nitrogen 59 mg/dL (8-24); Bun/Creatinine Ratio 24.6 (12.0-20.0); Calcium, Blood 8.2 mg/dL (8.5-10.1); Glomerular Filtration Rate 26 (60-); Magnesium, Blood 1.9 mg/dL (1.6-2.4); Phosphorus, Blood 3.5 mg/dL (2.5-4.9)
[2018-12-11 06:39] LABS: BAND PERCENT MAN 8 % (0-8); BASOPHILS PERCENT MAN 3 % (0-2); EOSINOPHILS ABSOLUTE MAN 8.25 K/mm3 (0.00-0.68); EOSINOPHILS PERCENT MAN 13 % (0-6); LYMPHOCYTES ABSOLUTE MAN 3.17 K/mm3 (0.84-5.20); LYMPHOCYTES PERCENT MAN 5 % (21-46); METAMYELOCYTE ABSOLUTE MAN 4.44 K/mm3 (0.00-0.00); METAMYELOCYTE PERCENT MAN 7 % (0-0); MONOCYTES ABSOLUTE MAN 6.34 K/mm3 (0.16-1.47); MONOCYTES PERCENT MAN 10 % (4-13); MYELOCYTE ABSOLUTE MAN 2.53 K/mm3 (0.00-0.00); MYELOCYTE PERCENT MAN 4 % (0-0); NEUTROPHILS ABSOLUTE MAN 36.81 K/mm3 (1.96-9.15); SEG NEUTROPHILS PERCENT MAN 50 % (41-73); TOTAL CELLS COUNTED 100
--- NOTE | 2018-12-11 17:35 | NUR ---
PT AOX3 WITH CONFUSION. PT HAS BEEN UP IN CHAIR AND HAS DONE WELL. PT DENIES ANY PAIN AT THIS TIME. 1 PERSON WITH GAIT BELT TO TRANFER TO CHAIR OR BED.WILL MONITOR.
--- NOTE | 2018-12-12 06:47 | NUR ---
Rn summary: Patient is alert, has been appropriate. Pt was up in the chair at bedside until 2129. Pt has rested well the rest of shift. Pt is frequently incontinent of urine, freq change of attends. Pt takes meds without difficulty. Pt has been stable this shift. Call light in reach. Bed alarm on for safety.
[2018-12-12 08:26] LABS: Albumin, Blood 2.8 g/dL (3.4-5.0); Anion Gap 7 mmol/L (6-16); Blood Urea Nitrogen 54 mg/dL (8-24); Bun/Creatinine Ratio 23.3 (12.0-20.0); CO2, Blood 27 mmol/L (21-32); Calcium, Blood 8.4 mg/dL (8.5-10.1); Chloride, Blood 101 mmol/L (98-108); Creatinine, Blood 2.32 mg/dL (0.60-1.20); Glomerular Filtration Rate 29 (60-); Glucose, Blood 116 mg/dL (70-99); Magnesium, Blood 1.9 mg/dL (1.6-2.4); Phosphorus, Blood 3.2 mg/dL (2.5-4.9); Potassium, Blood 4.4 mmol/L (3.5-5.5); Sodium, Blood 135 mmol/L (136-145)
[2018-12-12 15:39] LABS: Hemoglobin 10.6 g/dL (13.5-17.5); Mean Corpuscular HGB 28.9 pg (26.0-34.0); Mean Corpuscular HGB Conc 32.1 g/dL (31.5-36.5); Mean Corpuscular Volume 90 fL (80-100); Mean Platelet Volume 12.5 fL (9.1-12.4); NRBC ABSOLUTE 0.61 K/mm3 (0.00-0.02); NRBC Auto 1.2 /100 WBC (0.0-0.2); Platelet Count 307 K/mm3 (150-400); Red Blood Cell Count 3.67 M/mm3 (4.30-5.90)
[2018-12-12 15:51] LABS: White Blood Cell Count 52.43 K/mm3 (4.00-11.30)
[2018-12-12 16:11] LABS: BAND PERCENT MAN 8 % (0-8); BASOPHILS PERCENT MAN 0 % (0-2); EOSINOPHILS ABSOLUTE MAN 3.14 K/mm3 (0.00-0.68); EOSINOPHILS PERCENT MAN 6 % (0-6); LYMPHOCYTES ABSOLUTE MAN 1.04 K/mm3 (0.84-5.20); LYMPHOCYTES PERCENT MAN 2 % (21-46); METAMYELOCYTE ABSOLUTE MAN 2.62 K/mm3 (0.00-0.00); METAMYELOCYTE PERCENT MAN 5 % (0-0); MONOCYTES ABSOLUTE MAN 2.09 K/mm3 (0.16-1.47); MONOCYTES PERCENT MAN 4 % (4-13); MYELOCYTE ABSOLUTE MAN 1.57 K/mm3 (0.00-0.00); MYELOCYTE PERCENT MAN 3 % (0-0); NEUTROPHILS ABSOLUTE MAN 41.94 K/mm3 (1.96-9.15); SEG NEUTROPHILS PERCENT MAN 72 % (41-73); TOTAL CELLS COUNTED 100
--- NOTE | 2018-12-12 17:37 | NUR ---
SHIFT SUMMARY PT HAS HAD NO ACUTE CHANGES THIS SHIFT, NO COMPLAINTS, FAMILY PRESENT WHEN DR PORTER ROUNDED. AFTERNOON BP 86/44, REPORTED TO DR PORTER- 500 BOLUS GIVEN, BP 107/66. PT APPEARS TO BE SLEEPING AT THIS TIME, WILL CONT TO MONITOR UNTIL REPORT GIVEN TO JASPREET RN.
--- NOTE | 2018-12-13 04:04 | NUR ---
SHIFT SUMMARY NO CHANGES OVERNIGHT. PT A/OX1 TO SELF ONLY. HE REFUSES LOVENOX SHOT AND FOR AND ALSO TO TURN TO HIS SIDE SO I CAN LISTEN TO HIS LOWER LOBES. PT OTHERWISE HAS BEEN PLESANT. HE DENIES PAIN. HE HAS SLEPT MOST OF THE NIGHT. ASSESSMENT UNCHANGED. WILL CONTINUE TO MONITOR AND REPORT TO ONCOMING RN.
[2018-12-13 04:54] LABS: Hematocrit 32.8 % (37.0-53.0); Hemoglobin 10.9 g/dL (13.5-17.5)
[2018-12-13 05:16] LABS: Albumin, Blood 2.7 g/dL (3.4-5.0); Anion Gap 9 mmol/L (6-16); Blood Urea Nitrogen 57 mg/dL (8-24); Bun/Creatinine Ratio 22.2 (12.0-20.0); CO2, Blood 23 mmol/L (21-32); Calcium, Blood 8.2 mg/dL (8.5-10.1); Chloride, Blood 103 mmol/L (98-108); Creatinine, Blood 2.57 mg/dL (0.60-1.20); Glomerular Filtration Rate 26 (60-); Glucose, Blood 121 mg/dL (70-99); Phosphorus, Blood 3.9 mg/dL (2.5-4.9); Potassium, Blood 4.3 mmol/L (3.5-5.5); Sodium, Blood 135 mmol/L (136-145)
[2018-12-13 11:27] LABS: Hemoglobin 11.1 g/dL (13.5-17.5)
[2018-12-13 11:39] LABS: International Normalized Ratio 1.43; Prothrombin Time Results 14.7 Sec (9.7-11.5)
--- NOTE | 2018-12-13 12:02 | NUR ---
NOSE BLEED RN ENTERED PT'S ROOM AT 0930 FOUND PT SITTING UP TO BREAKFAST WITH ACTIVE BLEEDING FROM NOSE AND SPITTING CLOTS OUT OF MOUTH AND BLOOD POOLED ON GOWN. UNABLE TO STOP BLEED, CALLED [employer]PLICATIONS PROGRAMMER ANALYST WHO NOTIFIED DR PORTER. AFRIN AND ICE PLACED, BLEED STOPPED BY 1000, PT LEFT SITTING UPRIGHT WATCHING TV. 1030 FOUND PT BLEEDING FROM L NOSTRIL SPITTING BLOOD AGAIN. AFRIN AND ICE PACKS REPEATED AFTER SPEAKING W/DR LONG. 1100 RESTING QUIETLY UPRIGHT IN BED, DR PORTER NOTIFIED.
--- NOTE | 2018-12-13 17:55 | NUR ---
SHIFT SUMMARY PT EXPERIENCED SEVERE NOSE BLEEDS X3 THIS SHIFT, CONSULT CALLED TO DR LONG WHO TREATED PT AT BEDSIDE, NO ISSUES SINCE, NO OTHER PROBLEMS OR COMPLAINTS OF ANY KIND. PT UP IN RECLINER ON CHAIR ALARM EATING DINNER AT THIS TIME, WILL CONT TO MONITOR UNTIL REPORT GIVEN TO JASPREET SOLORZANO.
--- NOTE | 2018-12-14 03:48 | NUR ---
SHIFT SUMMARY THE PT ADMITTED FOR ENCEPHALOPATHY. FULL CODE. ADA SOFT BITE SIZED DIET. UP IN CHAIR TID FOR MEALS. SCDS. CBG AT AND HS. ANTI-EMBOLIC STOCKINGS. 18G IV TO L AC. NOSE BLEED YESTERDAY WAS CAUTERIZED. 1-2 PERSON STAND PIVOT TRANSFER. HEPARIN STOPPED DUE TO NOSE BLEED. RASH TO GROIN, SUSPECTED TO BE FROM ATTENDS. DRSG TO COCCYX DUE TO REDNESS, CDI. DC TO [facility] IF POWER RESUMES. MEDS WHOLE IN APPLESAUCE. THE PT PRESENTED TO THE ED WITH C/O AMS. THE PT HAS A HISTORY OF DEMENTIA AND IS A RESIDENT AT [facility]. THE PT WAS BROUGHT TO THE ED FROM DR. BUNN'S OFFICE AFTER BEING FOUND LESS RESPONSIVE THEN USUALY. THE PT WAS NOTED TO HAVE L SIDED FACIAL DROOP. THE PT NOTED TO HAVE ACUTE ENCEPHALOPATHY THAT IS MULTIFACTORIAL, LIKELY METABOLIC AND FROM MEDICATION. 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 BARNES. THE PT MAY DC TODAY BACK TO [facility] IF POWER HAS BEEN RESTORED. THE PT HAS APPEARED TO SLEEP COMFORTABLY MOST OF THE NIGHT WITH NO APPARENT SIGNS OF ACUTE DISTRESS. FREQUENT VISUAL CHECKS IT IS UNCLEAR IF THE PT USES CALL LIGHT APPROPRIATELY. BED ALARM FOR SAFETY. WILL CONTINUE TO MONITOR.
[2018-12-14 05:15] LABS: Hematocrit 34.3 % (37.0-53.0); Hemoglobin 10.3 g/dL (13.5-17.5); Mean Corpuscular HGB 28.3 pg (26.0-34.0); Mean Platelet Volume 11.5 fL (9.1-12.4); NRBC ABSOLUTE 0.81 K/mm3 (0.00-0.02); NRBC Auto 1.4 /100 WBC (0.0-0.2); Platelet Count 311 K/mm3 (150-400); RDW Coefficient Variation 23.4 % (11.7-14.2); RDW Standard Deviation 79.1 fL (35.1-46.3); Red Blood Cell Count 3.64 M/mm3 (4.30-5.90)
[2018-12-14 05:33] LABS: Mean Corpuscular Volume 94 fL (80-100)
[2018-12-14 05:34] LABS: White Blood Cell Count 56.32 K/mm3 (4.00-11.30)
[2018-12-14 05:46] LABS: Magnesium, Blood 1.9 mg/dL (1.6-2.4)
[2018-12-14 05:55] LABS: Albumin, Blood 2.4 g/dL (3.4-5.0); Anion Gap 10 mmol/L (6-16); Blood Urea Nitrogen 64 mg/dL (8-24); Bun/Creatinine Ratio 25.1 (12.0-20.0); CO2, Blood 20 mmol/L (21-32); Calcium, Blood 8.1 mg/dL (8.5-10.1); Chloride, Blood 103 mmol/L (98-108); Creatinine, Blood 2.55 mg/dL (0.60-1.20); Glomerular Filtration Rate 26 (60-); Glucose, Blood 109 mg/dL (70-99); Phosphorus, Blood 4.2 mg/dL (2.5-4.9); Potassium, Blood 4.6 mmol/L (3.5-5.5); Sodium, Blood 133 mmol/L (136-145)
[2018-12-14 06:56] LABS: BAND PERCENT MAN 12 % (0-8); BASOPHILS ABSOLUTE MAN 3.37 K/mm3 (0.00-0.23); BASOPHILS PERCENT MAN 6 % (0-2); EOSINOPHILS ABSOLUTE MAN 2.81 K/mm3 (0.00-0.68); EOSINOPHILS PERCENT MAN 5 % (0-6); LYMPHOCYTES ABSOLUTE MAN 1.68 K/mm3 (0.84-5.20); LYMPHOCYTES PERCENT MAN 3 % (21-46); METAMYELOCYTE ABSOLUTE MAN 1.68 K/mm3 (0.00-0.00); METAMYELOCYTE PERCENT MAN 3 % (0-0); MONOCYTES ABSOLUTE MAN 3.37 K/mm3 (0.16-1.47); MONOCYTES PERCENT MAN 6 % (4-13); MYELOCYTE ABSOLUTE MAN 1.68 K/mm3 (0.00-0.00); MYELOCYTE PERCENT MAN 3 % (0-0); NEUTROPHILS ABSOLUTE MAN 41.67 K/mm3 (1.96-9.15); SEG NEUTROPHILS PERCENT MAN 62 % (41-73); TOTAL CELLS COUNTED 100
--- NOTE | 2018-12-14 19:27 | NUR ---
SHIFT SUMMARY NO ACUTE CHANGES. PATIENT HAD SEVERAL NOSEBLEEDS AGAIN THIS SHIFT. DR. PORTER INFORMED AND ADVISED RN TO CONTACT DR. LONG. MESSAGE LEFT WITH DR. LONG'S ANSWERING SERVICE. PATIENT WAS ALSO HYPOTENSIVE AFTER LUNCH, DR. PORTER INFORMED AND ORDERS GIVEN FOR FLUID BOLUS. PATIENT WORKED WITH OT IN THE MORNING. UP IN CHAIR FOR MEALS. REPORT GIVEN TO JASPREET RN.
[2018-12-15 04:53] LABS: Hemoglobin 10.8 g/dL (13.5-17.5)
[2018-12-15 05:07] LABS: Albumin, Blood 2.7 g/dL (3.4-5.0); Anion Gap 8 mmol/L (6-16); Blood Urea Nitrogen 56 mg/dL (8-24); Bun/Creatinine Ratio 22.9 (12.0-20.0); CO2, Blood 25 mmol/L (21-32); Calcium, Blood 8.1 mg/dL (8.5-10.1); Chloride, Blood 102 mmol/L (98-108); Creatinine, Blood 2.45 mg/dL (0.60-1.20); Glomerular Filtration Rate 27 (60-); Glucose, Blood 130 mg/dL (70-99); Magnesium, Blood 2.2 mg/dL (1.6-2.4); Potassium, Blood 4.3 mmol/L (3.5-5.5); Sodium, Blood 135 mmol/L (136-145)
--- NOTE | 2018-12-15 05:08 | NUR ---
SHIFT SUMMARY NO APPARENT ACUTE CHANGES NOTED SO FAR THIS SHIFT. PT DID APPEAR TO BE A BIT GRUMPTY THIS NIGHT, REFUSING TO PARTICIPATE IN CARE TASTS BUT EVENTUALLY ABLE TO REDIRECT. PT CONTINUE TO PICK NOSE CAUSING BLEEDING. HOWEVER, BLEEDING THIS NIGHT WAS MINIMAL BUT APPEARS PT MAY HAVE PICKED CLOT FROM NOSE A CLOT WAS PRESENT ON PTS GOWN. CRUSTED BLOOD NOTED SURROUNDED L NOSTRIL, ATTEMPTED TO WIPE AWAY BUT PT WOULD NOT TOLLERATED. PT HAS APPEARED TO SLEEP COMFORTABLY MOST OF THE NIGHT WITH NO APPARENT SIGNS OF ACUTE DISTRESS. PT USES CALL LIGHT AT TIMES. FREQUENT VISUAL CHECKS IT IS NOT CLEAR IF PT ALWAYS USES CALL LIGHT APPROPRIATELY. NO APPARENT SIGNS OF ACUTE DISTRESS. WILL CONTINUE TO MONITOR.
--- NOTE | 2018-12-15 11:35 | NUR ---
DISCHARGE NOTE PT DISCHARGED VIA W/C TO [facility] WITH [facility]. IV DISCONTINUED INTACT. ALL PAPERWORK AND DISCHARGE INSTRUCTIONS FAXED BY [facility] (TWISTER IN) PRIOR TO PT LEAVING HOSPITAL.
[2018-12-15] MEDS ORDERED: ACET325 PO ×2 (13:01)
[2018-12-15] MEDS ORDERED: CLOP75 PO ×2 (13:02)
[2018-12-15] MEDS ORDERED: BISA5EC PO ×2 (13:02)
[2018-12-15] MEDS ORDERED: ONDA4ODT MM ×2 (13:09)
[2018-12-15] MEDS ORDERED: DIPH50 PO ×2 (13:09)
[2018-12-15] MEDS ORDERED: MIRALAX17 GM PO ×2 (13:10)
[2018-12-15] MEDS ORDERED: SENN187 PO ×2 (13:11)
[2018-12-16] MEDS ORDERED: MIRT15 PO (09:13)
[2018-12-16] MEDS ORDERED: Neurontin 100100 MG PO (09:14)
== END 2018-12-15 11:44 | disposition home or self-care (01) ==
LOC: ER 12:00 → MEDS 12:01
PROVIDERS: Emergency Medicine; Hospitalist; Internal Medicine; Internal Medicine Nephrology; ADMIT Internal Medicine
DX: G92 Toxic encephalopathy (principal); R29.810 Facial weakness; E11.22 Type 2 diabetes mellitus with diabetic chronic kidney disease; N18.4 Chronic kidney disease, stage 4 (severe); N17.9 Acute kidney failure, unspecified; D63.1 Anemia in chronic kidney disease; C92.10 Chronic myeloid leukemia, BCR/ABL-positive, not having achieved remission; D46.9 Myelodysplastic syndrome, unspecified; I50.20 Unspecified systolic (congestive) heart failure; I50.32 Chronic diastolic (congestive) heart failure; F01.50 Vascular dementia, unspecified severity, without behavioral disturbance, psychotic disturbance, mood disturbance, and anxiety; E87.1 Hypo-osmolality and hyponatremia; E78.5 Hyperlipidemia, unspecified; E03.9 Hypothyroidism, unspecified; E66.9 Obesity, unspecified; I95.9 Hypotension, unspecified; E87.2 Acidosis; Z86.73 Personal history of transient ischemic attack (TIA), and cerebral infarction without residual deficits; I25.10 Atherosclerotic heart disease of native coronary artery without angina pectoris; I25.5 Ischemic cardiomyopathy; I48.91 Unspecified atrial fibrillation; M10.9 Gout, unspecified; Z79.4 Long term (current) use of insulin; Z79.82 Long term (current) use of aspirin; Z79.899 Other long term (current) drug therapy; Z88.0 Allergy status to penicillin; Z88.2 Allergy status to sulfonamides; Z88.1 Allergy status to other antibiotic agents; Z68.36 Body mass index [BMI] 36.0-36.9, adult
CPT/HCPCS: 36415; 70450; 71046; 80048; 80053; 80069; 82140; 82947; 83605; 83735; 84145; 85014; 85018; 85025; 85610; 93005; 93010; 93306; 93880; 96372; 97116; 97161; 97530; 99285-25; G0378; J1644; J1815; J7030; J7040; Q0163

== ENCOUNTER 2018-12-15 18:09 | Emergency (ER) | payer OTHER ==
[~2018-12-15] VITALS: Ht 165.1 cm; Wt 99.8 kg
[~2018-12-15 18:09] MED LIST changes: +BISA5EC PO; +DIPH50 PO; +ONDA4ODT MM; +SENN187 PO
[2018-12-16] MEDS ORDERED: MIRT15 PO (09:13)
[2018-12-16] MEDS ORDERED: Neurontin 100100 MG PO (09:14)
== END 2018-12-15 21:55 | disposition home or self-care (01) ==
LOC: ER 18:09
DX: R04.0 Epistaxis (principal); Z88.0 Allergy status to penicillin; Z88.2 Allergy status to sulfonamides; Z88.1 Allergy status to other antibiotic agents; Z79.899 Other long term (current) drug therapy; Z79.82 Long term (current) use of aspirin; Z79.4 Long term (current) use of insulin; I13.0 Hypertensive heart and chronic kidney disease with heart failure and stage 1 through stage 4 chronic kidney disease, or unspecified chronic kidney disease; N18.4 Chronic kidney disease, stage 4 (severe); I50.9 Heart failure, unspecified; I48.91 Unspecified atrial fibrillation; F03.90 Unspecified dementia, unspecified severity, without behavioral disturbance, psychotic disturbance, mood disturbance, and anxiety; E78.5 Hyperlipidemia, unspecified; E03.9 Hypothyroidism, unspecified; I25.10 Atherosclerotic heart disease of native coronary artery without angina pectoris
CPT/HCPCS: 30903; 99283-25

== ENCOUNTER 2018-12-16 08:58 | Observation (INO) | payer OTHER ==
[~2018-12-16] VITALS: Ht 165.1 cm; Wt 80.1 kg
[2018-12-16] MEDS ORDERED: MIRT15 PO (09:13)
[2018-12-16] MEDS ORDERED: Neurontin 100100 MG PO (09:14)
[2018-12-16 11:17] LABS: Hematocrit 32.3 % (37.0-53.0); Hemoglobin 10.4 g/dL (13.5-17.5); Mean Corpuscular HGB 28.9 pg (26.0-34.0); Mean Corpuscular HGB Conc 32.2 g/dL (31.5-36.5); Mean Platelet Volume 11.9 fL (9.1-12.4); NRBC ABSOLUTE 1.29 K/mm3 (0.00-0.02); NRBC Auto 2.1 /100 WBC (0.0-0.2); Platelet Count 388 K/mm3 (150-400); RDW Coefficient Variation 23.3 % (11.7-14.2); RDW Standard Deviation 74.2 fL (35.1-46.3)
[2018-12-16 11:24] LABS: Mean Corpuscular Volume 90 fL (80-100)
[2018-12-16 11:52] LABS: Albumin, Blood 2.8 g/dL (3.4-5.0); Albumin/Globulin Ratio 0.6 (0.8-1.8); Bilirubin, Total 0.7 mg/dL (0.1-1.0); Calcium, Blood 8.1 mg/dL (8.5-10.1); Creatinine, Blood 2.22 mg/dL (0.60-1.20); Potassium, Blood 4.1 mmol/L (3.5-5.5); Total Protein, Blood 7.8 g/dL (6.4-8.2)
[2018-12-16 12:18] LABS: BAND PERCENT MAN 3 % (0-8); BASOPHILS PERCENT MAN 0 % (0-2); EOSINOPHILS ABSOLUTE MAN 5.52 K/mm3 (0.00-0.68); EOSINOPHILS PERCENT MAN 9 % (0-6); LYMPHOCYTES ABSOLUTE MAN 4.91 K/mm3 (0.84-5.20); LYMPHOCYTES PERCENT MAN 8 % (21-46); METAMYELOCYTE ABSOLUTE MAN 1.22 K/mm3 (0.00-0.00); METAMYELOCYTE PERCENT MAN 2 % (0-0); MONOCYTES ABSOLUTE MAN 5.52 K/mm3 (0.16-1.47); MONOCYTES PERCENT MAN 9 % (4-13); MYELOCYTE ABSOLUTE MAN 1.22 K/mm3 (0.00-0.00); MYELOCYTE PERCENT MAN 2 % (0-0); SEG NEUTROPHILS PERCENT MAN 67 % (41-73); TOTAL CELLS COUNTED 100
[2018-12-16 12:59] LABS: BASOPHILS ABSOLUTE AUTO 0.81 K/mm3 (0.00-0.23); BASOPHILS PERCENT AUTO 1 % (0-2)
[2018-12-16 13:00] LABS: EOSINOPHILS ABSOLUTE AUTO 6.17 K/mm3 (0.00-0.68); EOSINOPHILS PERCENT AUTO 10 % (0-6); IMMATURE GRAN ABSOLUTE AUTO 7.09 K/mm3 (0.00-0.10); IMMATURE GRAN PERCENT AUTO 12 % (0-1); LYMPHOCYTES ABSOLUTE AUTO 1.87 K/mm3 (0.84-5.20); LYMPHOCYTES PERCENT AUTO 3 % (21-46); MONOCYTES ABSOLUTE AUTO 5.57 K/mm3 (0.16-1.47); MONOCYTES PERCENT AUTO 9 % (4-13); NEUTROPHILS ABSOLUTE AUTO 39.93 K/mm3 (1.96-9.15); NEUTROPHILS PERCENT AUTO 65 % (41-73); White Blood Cell Count 61.44 K/mm3 (4.00-11.30)
--- NOTE | 2018-12-16 16:40 | NUR ---
SHIFT SUMMARY RECEIVED REPORT FROM LILIAM LAUREANO RN IN ED. PT TO ROOM VIA GUROZIEL, 3 PERSON ASSIST TRANSFER ASSIST WITH SLIDER SHEET. PT/FAMILY ORIENTED TO ROOM AND CALL LIGHT SYSTEM. PT AND FAMILY EDUCATED ON FALL RISK AND USE OF CALL LIGHT AND BED ALARM. DAUGHTER REPORTS PT HAD A BLOODY NOSE LAST NIGHT, CAME INTO ER AND WAS SENT HOME AND HAD ANOTHER BLOODY NOSE TODAY STARTING AT 0600 AND DID NOT STOP UNTIL HERE IN ER. PT TO ROOM AT 1515. PT NOSE NOT BLEEDING AT ADMISSION. PT ALERT TO SELF AND FAMILY. UNABLE TO TELL ME WHERE HE IS, THE DATE/TIME (STATES ITS OCTOBER) AND UNABLE TO TELL ME WHY HE IS HERE. PT RESTING IN BED, DAUGHTER STATES HE HAS BEEN WHEELCHAIR BOUND FOR THE LAST MONTH OR SO, PT/OT WORKING WITH HIM AT [facility]. UP IN CHAIR FOR MEALS. PT DENIES SOB, N/V AND PAIN. PT HAS PACEMAKER/AICD IN PLACE. PT INCONTINENT, ATTENDS IN PLACE. VSS. NO OTHER ACUTE CHANGE NOTED DURING SHIFT. PROVIDER CONSULT - DR ACHARYA NOTIFIED NO ENT CONVERAGE UNTIL Tuesday12/18/18. WILL CONTINUE TO MONITOR UNTIL REPORT GIVEN TO ONCOMING RN.
--- NOTE | 2018-12-16 18:47 | NUR ---
PT ATTEMPTING TO BLOW NOSE, A SCANT AMOUNT OF BLOOD FOUND ON [place], DR PATRIZIA BARKERIFIED, NEW ORDERS FOR ENTERED FOR PRN NASAL SPRAY.
--- NOTE | 2018-12-17 04:35 | NUR ---
SHIFT SUMMARY PT SLEPT WELL DURING THE NIGHT, INCONTINENT OF BOWEL AND BLADDER. TURNED AND REPOSITIONED. PT ALSO HAD 2 LARGE CLOTS ON THE BED, UNSURE OF WHETHER OR NOT PT BLEW HIS NOSE DURING THE NIGHT. BEDDING CHANGED. NO ACUTE EVENTS DURING THE NIGHT, WILL CONTINUE TO MONITOR.
[2018-12-17 05:37] LABS: Hematocrit 31.2 % (37.0-53.0); Hemoglobin 9.8 g/dL (13.5-17.5); Mean Corpuscular HGB 28.4 pg (26.0-34.0); Mean Corpuscular HGB Conc 31.4 g/dL (31.5-36.5); Mean Corpuscular Volume 90 fL (80-100); Mean Platelet Volume 11.2 fL (9.1-12.4); NRBC ABSOLUTE 1.55 K/mm3 (0.00-0.02); NRBC Auto 2.5 /100 WBC (0.0-0.2); Platelet Count 363 K/mm3 (150-400); RDW Coefficient Variation 23.6 % (11.7-14.2); RDW Standard Deviation 74.2 fL (35.1-46.3); Red Blood Cell Count 3.45 M/mm3 (4.30-5.90)
[2018-12-17 05:46] LABS: White Blood Cell Count 62.86 K/mm3 (4.00-11.30)
[2018-12-17 06:13] LABS: Bun/Creatinine Ratio 20.8 (12.0-20.0); Calcium, Blood 8.3 mg/dL (8.5-10.1); Creatinine, Blood 2.36 mg/dL (0.60-1.20); Potassium, Blood 4.2 mmol/L (3.5-5.5)
--- NOTE | 2018-12-17 09:51 | NUR ---
CALLED DR ACHARYA TO CLARIFY ORDER FOR PLAVIX, PT ADMITTED FOR EPISTAXIA, NEW ORDERS TO DISCONTINUE PLAVIX AND ANYOTHER BLOOD THINNERS.
--- NOTE | 2018-12-17 12:01 | NUR ---
NEW DISCHARGE ORDERS TO GO HOME TO [facility], CONTACTED FACILITY AND THEY ARE UNABLE TO ACCEPT THE PATIENT BACK DUE TO FACILITIES AND THE NURSE NOT BEING AVAILABLE TO REASSES THE PATIENT. DR ACHARYA NOTIFIED, NEW ORDERS TO HOLD DISCHARGE UNTIL TOMORROW
[2018-12-17] MEDS ORDERED: CYAN1000I IM (16:59)
[2018-12-17] MEDS ORDERED: BISA10S PR (17:01)
[2018-12-17] MEDS ORDERED: FERRIC CITRATE210 MG PO (17:01)
[2018-12-17] MEDS ORDERED: LORA.5 PO (17:02)
--- NOTE | 2018-12-17 20:21 | NUR ---
SHIFT SUMMARY PT A&O TO SELF AND FAMILY. PT PLESANTLY CONFUSED. PT RESPONDING TO VERBAL STIMULI THIS EVENING, FAMILY CONCERNED, PT STATES HE IS TIRED. PT UP IN CHAIR FOR MEALS, AND THIS AM. REPOSITIONED WHILE IN BED FOR COMFORT. PT DENIES PAIN AND SOB. PT STATES HE HAS AN UPSET STOMACH THIS EVENING, DENIES NEED FOR MEDICATIONS OR OTHER TREATMENTS. PT RECEIVING AFRIN NASAL SPRAY THIS AM, NO ACTIVE BLEEDING WITNESSED. SMALL DROP OF BLOOD FOUND ON LIN[place] THIS EVENING. PLAN TO DISCHARGE TODAY, [facility] UNABLE TO ACCEPT HIM BACK UNTIL 12/18/18 DUE TO STAFFING, DR ACHARYA NOTIFIED. VSS. NO OTHER ACUTE CHANGES NOTED DURING SHIFT. REPORT GIVEN TO ONCOMING RN.
--- NOTE | 2018-12-18 04:31 | NUR ---
SHIFT SUMMARY PT SLEPT WELL DURING THE NIGHT, CHANGED NEEDED AND REPOSITIONED EVERY 2 HOURS. NO ACUTE CHANGES NOTED DURING THE NIGHT, WILL CONTINUE TO MONITOR.
[2018-12-18 05:44] LABS: Hematocrit 32.2 % (37.0-53.0); Mean Corpuscular HGB 28.3 pg (26.0-34.0); Mean Corpuscular HGB Conc 31.1 g/dL (31.5-36.5); Mean Corpuscular Volume 91 fL (80-100); Mean Platelet Volume 11.9 fL (9.1-12.4); NRBC ABSOLUTE 1.29 K/mm3 (0.00-0.02); NRBC Auto 1.9 /100 WBC (0.0-0.2); Platelet Count 370 K/mm3 (150-400); RDW Coefficient Variation 24.1 % (11.7-14.2); RDW Standard Deviation 76.4 fL (35.1-46.3); Red Blood Cell Count 3.53 M/mm3 (4.30-5.90)
[2018-12-18 05:47] LABS: White Blood Cell Count 68.54 K/mm3 (4.00-11.30)
[2018-12-18 06:03] LABS: Bun/Creatinine Ratio 20.4 (12.0-20.0); Calcium, Blood 8.2 mg/dL (8.5-10.1); Creatinine, Blood 2.45 mg/dL (0.60-1.20); Potassium, Blood 4.2 mmol/L (3.5-5.5)
--- NOTE | 2018-12-18 13:26 | NUR ---
DR LONG CALLED REGARDING CONSULT, PLANS TO HAVE PT FOLLOW UP OUTPATIENT. NOTIFIED DR ACHARYA, NEW ORDERS TO CONTINUE WITH DISCHARGE ORDERS FROM YESTERDAY. CALLED [facility], NURSE WILL CALL BACK REGARDING DISCHARGE PLANS.
--- NOTE | 2018-12-18 13:36 | NUR ---
Spiritual care visit conducted. I responded to a referral that the patient is requesting spiritual care. Patient was sitting in his chair sleeping when I entered the patient's room. Patient awoke to the sound of his name but remained in a very sleepy state. I introduced myself and patient grunted. I asked patient if he was tired and he said "yes." I asked patient if I could pray for him and he nodded affirmingly and said "yes." I provided prayer. When I concluded patient whispered, "amen." He then fell back to sleep. I left the room.
[2018-12-18] MEDS ORDERED: OXYM.05NI (14:35)
--- NOTE | 2018-12-18 14:36 | NUR ---
MICHAEL, THE PATIENT DAUGHTER EXPRESSED CONCERNS THAT THE PT IS HAVING A STROKE OR TIA, PT DAUGHTER STATES THAT THE EXTRA SKIN ON THE LEFT SIDE OF HIS NECK IS SWOLLEN AND HANGING LOWER THEN HIS RIGHT AND THE PT APPEARS TO BE MORE LETHARGIC WHEN PRIOR TO ADMISSION. ASSESSMENT- PERRLA, POSSIBLE LEFT EYE DROOP, WHICH HAS NOT CHANGED SINCE ADMISSION, LOW HEEL BUILDER/STENGTH EQUAL ON BLE AND BUE. NOTIFIED DR ACHARYA OF DAUGHTERS CONCERNS AND ASSESSMENT. DR ACHARYA TO INPUT ORDERS.
--- NOTE | 2018-12-18 16:49 | NUR ---
NOTIFIED DR ACHARYA OF CT RESULTS. DR ACHARYA REVIEWED. OK TO CONTINUE TO DISCHARGE PLANNED AND LET DAUGHTER KNOW THE CT SHOWS NO ACUTE FINDINGS. WORKING WITH [facility] AND CARE MANAGEMENT TO DISCHARGE HOME. [facility] IN CARE MANAGEMENT SPOKE WITH SREEKANTH, THE NURSE AT [facility], STATES NOT ABLE TO COME BACK UNTIL TOMORROW SHE IS LEAVING FOR THE NIGHT. NOTIFIED DR ACHARYA, OK TO HOLD DISCHARGE UNTIL TOMORROW AM. [facility] IN CARE MANAGEMENT TO COORDINATE DISCHARGE TRANSPORTATION IN AM.
--- NOTE | 2018-12-18 19:54 | NUR ---
SHIFT SUMMARY PT RESPONDS TO VERBAL STIMULI FOR MAJORITY OF SHIFT, A&O TO SELF AND FAMILY. PT RESTING UP IN CHAIR FOR MAJORITY OF DAY, APPEARTS TO BE SLEEPING INTERMITTENTLY. 2 PERSON MAX ASSIST PIVOT TRANSFER. PT DENIES PAIN, SOB AND N/V. PT DAUGHTER EXPRESSED CONCERNS REGARDING POSSIBLITY OF STROKE, DR ACHARYA NOTIFIED AND CT COMPLETED DURING SHIFT. PLANS TO DISCHARGE PT TO [facility] THIS AFTERNOON, THEY WOULD NOT ACCEPT PT BACK IT WAS TOO LATE IN THE DAY. NO BLEEDING NOTED DURING SHIFT. VSS. NO OTHER ACUTE CHANGES NOTED. REPORT GIVEN TO ONCOMING RN
--- NOTE | 2018-12-19 07:41 | NUR ---
12/19/18 0600 AWAKENED FOR REPOSITIONING AND VITALS. DENIES ANY PAIN. VITALS STABLE, DRINKS WELL WITH ENCOURAGEMENT.
[2018-12-19] MEDS ORDERED: LORA.5 PO (11:32)
[2018-12-19] MEDS ORDERED: FERRIC CITRATE210 MG PO (11:33)
[2018-12-19] MEDS ORDERED: CYAN1000I IM (11:33)
--- NOTE | 2018-12-19 12:00 | NUR ---
DISCHARGE INSTRUCTIONS COMPLETED AND PLACED IN PACKET FOR [facility]. SON IN LAW AT BEDSIDE FOR SHORT TIME. BED BATH GIVEN PRIOR TO BEING DRESSED. 2 PERSON MAX ASSIST WITH TRANSFERRED TO W/C. TO [facility] VIA W/C.
== END 2018-12-19 11:35 | disposition home or self-care (01) ==
LOC: ER 08:58 → MEDS 08:59 → EDPENDDIS 12-17 11:58 → ENPENDDIS 12-17 11:58 → MEDS 12-19 11:35
PROVIDERS: Internal Medicine; ADMIT Internal Medicine
DX: R04.0 Epistaxis (principal); I13.0 Hypertensive heart and chronic kidney disease with heart failure and stage 1 through stage 4 chronic kidney disease, or unspecified chronic kidney disease; E11.22 Type 2 diabetes mellitus with diabetic chronic kidney disease; I50.40 Unspecified combined systolic (congestive) and diastolic (congestive) heart failure; N18.4 Chronic kidney disease, stage 4 (severe); C94.6 Myelodysplastic disease, not elsewhere classified; C92.10 Chronic myeloid leukemia, BCR/ABL-positive, not having achieved remission; F01.50 Vascular dementia, unspecified severity, without behavioral disturbance, psychotic disturbance, mood disturbance, and anxiety; I25.10 Atherosclerotic heart disease of native coronary artery without angina pectoris; I48.91 Unspecified atrial fibrillation; E03.9 Hypothyroidism, unspecified; E66.9 Obesity, unspecified; Z86.73 Personal history of transient ischemic attack (TIA), and cerebral infarction without residual deficits; Z88.0 Allergy status to penicillin; Z88.2 Allergy status to sulfonamides; Z88.1 Allergy status to other antibiotic agents; Z79.899 Other long term (current) drug therapy; Z79.82 Long term (current) use of aspirin; Z79.02 Long term (current) use of antithrombotics/antiplatelets; Z79.4 Long term (current) use of insulin; Z68.36 Body mass index [BMI] 36.0-36.9, adult
CPT/HCPCS: 36415; 70450; 80048; 80053; 82947; 85025; 85027; 99284; G0378

== ENCOUNTER 2018-12-20 12:58 | Emergency (ER) | payer OTHER ==
[~2018-12-20] VITALS: Ht 165.1 cm; Wt 72.6 kg
[~2018-12-20 12:58] MED LIST changes: +Neurontin 100100 MG PO; +OXYM.05NI
[2018-12-20 13:44] LABS: Hematocrit 29.6 % (37.0-53.0); Hemoglobin 9.3 g/dL (13.5-17.5); Mean Corpuscular HGB 28.8 pg (26.0-34.0); Mean Corpuscular HGB Conc 31.4 g/dL (31.5-36.5); Mean Corpuscular Volume 92 fL (80-100); Mean Platelet Volume 11.1 fL (9.1-12.4); NRBC ABSOLUTE 2.27 K/mm3 (0.00-0.02); NRBC Auto 3.1 /100 WBC (0.0-0.2); Platelet Count 448 K/mm3 (150-400); RDW Coefficient Variation 23.9 % (11.7-14.2); RDW Standard Deviation 77.3 fL (35.1-46.3); Red Blood Cell Count 3.23 M/mm3 (4.30-5.90)
[2018-12-20 13:55] LABS: White Blood Cell Count 73.38 K/mm3 (4.00-11.30)
[2018-12-20 14:08] LABS: International Normalized Ratio 1.36
[2018-12-20 14:40] LABS: BAND PERCENT MAN 12 % (0-8); BASOPHILS PERCENT MAN 0 % (0-2); EOSINOPHILS PERCENT MAN 6 % (0-6); LYMPHOCYTES PERCENT MAN 3 % (21-46); METAMYELOCYTE ABSOLUTE MAN 2.93 K/mm3 (0.00-0.00); METAMYELOCYTE PERCENT MAN 4 % (0-0); MONOCYTES PERCENT MAN 6 % (4-13); MYELOCYTE ABSOLUTE MAN 7.33 K/mm3 (0.00-0.00); MYELOCYTE PERCENT MAN 10 % (0-0); NEUTROPHILS ABSOLUTE MAN 52.09 K/mm3 (1.96-9.15); SEG NEUTROPHILS PERCENT MAN 59 % (41-73); TOTAL CELLS COUNTED 100
== END 2018-12-20 17:01 | disposition home or self-care (01) ==
LOC: ER 12:58
PROVIDERS: Emergency Medicine
DX: R04.0 Epistaxis (principal); E11.9 Type 2 diabetes mellitus without complications; I25.2 Old myocardial infarction; I48.91 Unspecified atrial fibrillation; I50.9 Heart failure, unspecified; I25.10 Atherosclerotic heart disease of native coronary artery without angina pectoris; E03.9 Hypothyroidism, unspecified; Z88.0 Allergy status to penicillin; Z88.2 Allergy status to sulfonamides; Z88.1 Allergy status to other antibiotic agents; Z79.899 Other long term (current) drug therapy; Z79.82 Long term (current) use of aspirin; Z79.4 Long term (current) use of insulin; Z86.73 Personal history of transient ischemic attack (TIA), and cerebral infarction without residual deficits
CPT/HCPCS: 30903; 36415; 82947; 85025; 85610; 85730; 99283-25

== ENCOUNTER 2019-02-04 23:01 | Inpatient (IN) | payer OTHER ==
[~2019-02-04] VITALS: Ht 177.8 cm; Wt 79.9 kg
[2019-02-04] MEDS ORDERED: CLOP75 PO (23:15)
[2019-02-04] MEDS ORDERED: ALLO100 PO (23:15)
[2019-02-04] MEDS ORDERED: SODBIC650 PO (23:16)
[2019-02-04] MEDS ORDERED: BUME2 PO (23:16)
[2019-02-04] MEDS ORDERED: LEVSOD112 PO (23:16)
[2019-02-04] MEDS ORDERED: Novolog100 UNIT/2 (23:17)
[2019-02-04] MEDS ORDERED: LANTUS SC (23:18)
[2019-02-04] MEDS ORDERED: VITAMIN B12 SC (23:22)
[2019-02-04] MEDS ORDERED: AURYXIA PO (23:22)
[2019-02-04] MEDS ORDERED: CARV3.125 PO (23:23)
[2019-02-04] MEDS ORDERED: GABA100 PO (23:23)
[2019-02-04] MEDS ORDERED: DOCU100 PO (23:23)
[2019-02-04] MEDS ORDERED: METO2.5 PO (23:23)
[2019-02-05 00:03] LABS: BASOPHILS ABSOLUTE AUTO 1.04 K/mm3 (0.00-0.23); BASOPHILS PERCENT AUTO 1 % (0-2); Hemoglobin 10.2 g/dL (13.5-17.5); Mean Corpuscular HGB 26.5 pg (26.0-34.0); Mean Corpuscular Volume 88 fL (80-100); NRBC Auto 3.9 /100 WBC (0.0-0.2); Platelet Count 238 K/mm3 (150-400); RDW Coefficient Variation 23.4 % (11.7-14.2); RDW Standard Deviation 72.1 fL (35.1-46.3); Red Blood Cell Count 3.85 M/mm3 (4.30-5.90)
[2019-02-05 00:05] LABS: EOSINOPHILS ABSOLUTE AUTO 5.25 K/mm3 (0.00-0.68); EOSINOPHILS PERCENT AUTO 7 % (0-6); IMMATURE GRAN ABSOLUTE AUTO 5.83 K/mm3 (0.00-0.10); IMMATURE GRAN PERCENT AUTO 8 % (0-1); LYMPHOCYTES ABSOLUTE AUTO 1.83 K/mm3 (0.84-5.20); LYMPHOCYTES PERCENT AUTO 3 % (21-46); MONOCYTES ABSOLUTE AUTO 6.72 K/mm3 (0.16-1.47); MONOCYTES PERCENT AUTO 9 % (4-13); NEUTROPHILS ABSOLUTE AUTO 51.66 K/mm3 (1.96-9.15); NEUTROPHILS PERCENT AUTO 71 % (41-73); White Blood Cell Count 72.33 K/mm3 (4.00-11.30)
[2019-02-05 00:07] LABS: Bun/Creatinine Ratio 18.4 (12.0-20.0); Calcium, Blood 8.2 mg/dL (8.5-10.1); Creatinine, Blood 4.02 mg/dL (0.60-1.20); Potassium, Blood 3.4 mmol/L (3.5-5.5)
[2019-02-05 00:14] LABS: BAND PERCENT MAN 6 % (0-8); BASOPHILS ABSOLUTE MAN 0.72 K/mm3 (0.00-0.23); BASOPHILS PERCENT MAN 1 % (0-2); EOSINOPHILS ABSOLUTE MAN 4.33 K/mm3 (0.00-0.68); EOSINOPHILS PERCENT MAN 6 % (0-6); LYMPHOCYTES ABSOLUTE MAN 1.44 K/mm3 (0.84-5.20); LYMPHOCYTES PERCENT MAN 2 % (21-46); METAMYELOCYTE ABSOLUTE MAN 1.44 K/mm3 (0.00-0.00); METAMYELOCYTE PERCENT MAN 2 % (0-0); MONOCYTES ABSOLUTE MAN 3.61 K/mm3 (0.16-1.47); MONOCYTES PERCENT MAN 5 % (4-13); MYELOCYTE ABSOLUTE MAN 2.89 K/mm3 (0.00-0.00); MYELOCYTE PERCENT MAN 4 % (0-0); NEUTROPHILS ABSOLUTE MAN 57.14 K/mm3 (1.96-9.15); PROMYELOCYTE ABSOLUTE MAN 0.72 K/mm3 (0.00-0.00); PROMYELOCYTE PERCENT MAN 1 % (0-0); SEG NEUTROPHILS PERCENT MAN 73 % (41-73); TOTAL CELLS COUNTED 100
--- NOTE | 2019-02-05 02:30 | NUR ---
ADMIT NOTE RECEIVED REPORT FROM LILIAM SOLORZANO. PT ARRIVES TO ROOM VIA GURNEY, TX'D TO BED WITH SLIDER SHEET AND STAFF X 4. PT AWAKENS TO VOICE AND ANSWERS QUESTIONS BUT KEEPS EYES CLOSED. PER FAMILY, PT PREFERS TO REST IN BED WITHOUT GOWN. ATTENDS IN PLACE FOR INCONTINENCE. NASAL PACKING TO L NARE. DAUGHTER/POA MICHAEL AND VERÓNICA AT THE BEDSIDE FOR ADMISSION QUESTIONS. AT BASELINE, PT HAS DEMENTIA AND IS ORIENTED TO SELF ONLY. BP: 85/56, PT IS ASYMPTOMATIC WITH A MAP >60, WILL CONTINUE TO MONITOR CLOSELY. ALL OTHER VSS, SEE ASSSESSMENT FOR DETAILS. PT DENIES PAIN, APPEARS COMFORTABLE, C/O THIRST AND IS ABLE TO SWALLOW SMALL CUP OF ORANGE JUICE WITHOUT DIFFICULTY. FAMILY PHONE NUMBERS PLACED ON WHITE BOARD AND WILL CALL WITH ANY CONCERNING CHANGES. WILL INITIATE ADMIT ORDERS AND PLAN OF CARE. BED ALARM ON AND CALL LIGHT IN REACH.
[2019-02-05] MEDS ORDERED: BUME2 PO (03:46)
[2019-02-05] MEDS ORDERED: MIRT15 PO (03:48)
[2019-02-05] MEDS ORDERED: CHOL10002 PO ×2 (03:49→03:50)
[2019-02-05] MEDS ORDERED: MIRALAX17 GM PO (03:52)
--- NOTE | 2019-02-05 05:44 | NUR ---
CALL TO MD CONTACTED DR. SOTO TO REQUEST ORDERS FOR SLIDING SCALE INSULIN. ORDERS RECEIVED. ALSO REQUESTED CONSULT FOR DR. UBNN AT DAUGHTER/ENRIQUE RODRIGUEZ'S REQUEST. ORDER DECLINED AT THIS TIME AND DEFERRED TO DAY SHIFT MD TO DETERMINE. WILL REPORT TO DAY SHIFT RN TO FOLLOW UP.
--- NOTE | 2019-02-05 05:46 | NUR ---
PT HAS RESTED WELL FOR REMAINDER OF SHIFT. PACKING REMAINS IN PLACE TO L NARE. PT CONTINUES TO AWAKEN TO VOICE AND IS ORIENTED TO SELF ONLY, MAKES NO ATTEMPT TO MOVE SELF IN BED. Q 2 HR TURNS IMPLEMENTED AND FOAM DSG IN PLACE TO COCCYX FOR STAGE 0 PRESSURE ULCER. NO VOID SINCE PT ARRIVED TO ROOM, WILL COMMUNICATE TO DAY SHIFT RN FOR CLOSE MONITORING R/T ACUTE KIDNEY INJURY. NO ACUTE CONCERNS AT THIS TIME, WILL PROVIDE BEDSIDE REPORT AT CHANGE OF SHIFT.
[2019-02-05 07:09] LABS: Hematocrit 41.8 % (37.0-53.0); Hemoglobin 12.5 g/dL (13.5-17.5); Mean Corpuscular HGB 26.3 pg (26.0-34.0); Mean Corpuscular HGB Conc 29.9 g/dL (31.5-36.5); Mean Corpuscular Volume 88 fL (80-100); NRBC ABSOLUTE 4.48 K/mm3 (0.00-0.02); Platelet Count 218 K/mm3 (150-400); RDW Coefficient Variation 23.6 % (11.7-14.2); RDW Standard Deviation 71.9 fL (35.1-46.3); Red Blood Cell Count 4.76 M/mm3 (4.30-5.90)
[2019-02-05 07:10] LABS: White Blood Cell Count 89.34 K/mm3 (4.00-11.30)
[2019-02-05 07:26] LABS: Bun/Creatinine Ratio 18.2 (12.0-20.0); Calcium, Blood 8.1 mg/dL (8.5-10.1); Creatinine, Blood 3.91 mg/dL (0.60-1.20); Potassium, Blood 3.8 mmol/L (3.5-5.5)
[2019-02-05 07:52] LABS: BAND PERCENT MAN 4 % (0-8); BASOPHILS ABSOLUTE MAN 1.78 K/mm3 (0.00-0.23); BASOPHILS PERCENT MAN 2 % (0-2); EOSINOPHILS ABSOLUTE MAN 7.14 K/mm3 (0.00-0.68); EOSINOPHILS PERCENT MAN 8 % (0-6); LYMPHOCYTES ABSOLUTE MAN 4.46 K/mm3 (0.84-5.20); LYMPHOCYTES PERCENT MAN 5 % (21-46); METAMYELOCYTE ABSOLUTE MAN 1.78 K/mm3 (0.00-0.00); METAMYELOCYTE PERCENT MAN 2 % (0-0); MONOCYTES ABSOLUTE MAN 3.57 K/mm3 (0.16-1.47); MONOCYTES PERCENT MAN 4 % (4-13); MYELOCYTE ABSOLUTE MAN 1.78 K/mm3 (0.00-0.00); MYELOCYTE PERCENT MAN 2 % (0-0); NEUTROPHILS ABSOLUTE MAN 68.79 K/mm3 (1.96-9.15); SEG NEUTROPHILS PERCENT MAN 73 % (41-73); TOTAL CELLS COUNTED 100
--- NOTE | 2019-02-05 11:13 | NUR ---
WEB COORDINATOR IN ROOM CHANGING INCONTINENT VOID. STATES PT FEELS WARM, TEMPERATURE READING 102.9 TEMPORALLY. ATTEMPTED TO CHECK IT ORALLY BUT PT UNABLE TO KEEP THERMOMETER PROBE IN MOUTH. BLANKET REMOVED FROM PT, LIGHT SHEET LEFT ON PT. WILL PROVIDE TYLENOL TO PT AND WILL CONTINUE TO MONITOR.
--- NOTE | 2019-02-05 13:56 | NUR ---
DAUGHTER AT BEDSIDE. CONCERNED ABOUT PT's LEVEL OF CONSCIOUSNESS, STATES "HE IS USUALLY SITTING UP AND TALKING AND IS ABLE TO FEED HIMSELF" DAUGHTER IS ASKING IF DR. BUNN HAS BEEN CONSULTED, INFORMED DAUGHTER THAT HE HAD NOT BEEN CONSULTED. CHAPLAIN RAYGOZA IN ROOM.
--- NOTE | 2019-02-05 14:12 | NUR ---
Upon receiving a referral for spiritual care, I entered patient's room and found patient asleep. I was only in the room long enough to say patient's name a couple of times when patient's daughter, Olivia entered the room. Olivia tried to wake the patient with minimal success. I talked with Olivia at length and she shared about patient's life/family history, about patient's lexy and about patient's current medical condition. Olivia also stated about her frustrations regarding her father's care during his last hospital stay and that it appears to her that the same issue maybe happening again in that patient's kidney doctor, Dr. Webb, is not being notified this visit and patient's kidney is not functioning well again. I listened empathically and told Olivia I would pass this concern on to patient's nurse (which I later did). After this Olivia allowed me to provide prayer for the patient, which I immediately did. Patient responded with a solid, "Amen." Olivia thanked me for the prayer and visit.
--- NOTE | 2019-02-05 14:19 | NUR ---
SPOKE TO DR. STORY REGARDING FAMILY REQUEST FOR A CONSULT FOR DR. BUNN. DR. STORY TO COME SEE FAMILY. DAUGHTER REQUESTING TO SPEAK WITH HOSPITAL ADMINISTRATION, STATES "THIS IS THE 2ND HOSPITALIZATION THAT WE HAVE HAD A PROBLEM GETTING A CONSULT FOR DR. BUNN". SPOKE TO KARIN THE PATIENT ADVOCATE, PATIENT ADVOCATE TO COME SEE.
--- NOTE | 2019-02-05 14:40 | NUR ---
DR. STORY AT BEDSIDE DISCUSSING PLAN OF CARE WITH FAMILY. ORDERS RECEIVED FOR CHEST XRAY, BLOOD CULTURES, AND URINALYSIS. WILL CONTINUE TO MONITOR.
[2019-02-05 15:32] LABS: Hematocrit 33.2 % (37.0-53.0)
[2019-02-05 15:40] LABS: Source, Urine Clean Catch
[2019-02-05 16:02] LABS: Bilirubin, Urine Neg (Neg); Blood, Urine 1+ (Neg); Glucose Qualitative, Urine Neg (Neg); Ketones, Urine Neg (Neg); Leukocyte Esterase, Urine 1+ (Neg); Nitrite, Urine Neg (Neg); Protein, Urine 3+ (Neg); Specific Gravity, Urine 1.015 (1.003-1.022); Urobilinogen, Urine NORM (Normal)
[2019-02-05 16:12] LABS: Appearance, Urine Hazy (Clear); Color, Urine Yellow (P-Yellow)
[2019-02-05 16:13] LABS: Amorphous Light (0-Heavy); Squamous Epithelial Cells Few /hpf (Few)
[2019-02-05 16:15] LABS: Bacteria Mod /hpf; Renal Epithelial Rare /hpf (0-Rare)
--- NOTE | 2019-02-05 19:20 | NUR ---
SHIFT SUMMARY PT RESTING IN BED THROUGHOUT THE DAY. ALERT AND ORIENTED TO SELF ONLY, FOLLOWING COMMANDS APPROPRIATELY. PT MORE ALERT THIS MORNING THAN THIS AFTERNOON. PACKING TO LEFT NARES, OCCASIONAL BLEEDING NOTED, ASSESSED BY DR. LONG. WILL CONTINUE TO MONITOR. LUNG SOUNDS CLEAR, PACED RHYTHM WITH PVCs RATE 82 PER TELEMETRY. NO EDEMA NOTED TO BLE. PT HAD A SUDDEN FEVER THIS AFTERNOON, UP TO 102.9, MEDICATED WITH TYLENOL WHICH BROUGHT TEMP DOWN TO 100.1, TEMPERATURE AT 98.3 AT 1830. AFTERNOON VITALS CHECK COMPLETE, BP 75/45, NEW ORDER FOR NS AT 75 ML/HR. IV FLUIDS STARTED, RECHECKED BP, BP 77/49. DR. STORY NOTIFIED, ORDER FOR NS 500 ML BOLUS OVER 30 MINUTES. BOLUS COMPLETE, BP 87/53. BEDSIDE REPORT OFF TO CUSTODIAL ENGINEER RN. PLAN OF CARE DISCUSSED WITH FAMILY AT BEDSIDE. FAMILY HAS NO FURTHER QUESTIONS AT THIS TIME.
--- NOTE | 2019-02-05 19:51 | NUR ---
PCU NIGHTSHIFT ASSUMED CARE OF PT APPROX. 1900. PT LETHARGIC AND EXCESSIVELY SLEEPY. BUT ARROUSABLE AND ABLE TO ANSWERED QUESTIONS. PT BRIEFLY OPENED EYES FOR ME AND HELD SHORT CONVERSATION. BUT THEN RETURNS TO SLEEP. PT ABLE TO STATE NAME, AND DATE OF CLEARLY BEFORE RESUMING SLEEP. ASSESSMENT COMPLETED. LUQ FIRM. NOSE PACKING REMAINS IN PLACE. 1L OXYGEN VIA N.C. IN PLACE WITH SATS IN 90'S. BLOOD PRESSURE SLIGLHLTY LOW. PT JUST COMPLETING 500ML BOLUC PER MD ORDERS. BLOOD RECHECKED AFTER THIS AND WAS SLIGHTLY BETTER. WILL CONTINUE TO MONITOR THIS AND NOTIFY PM HOSPITALIST IF NO S/SX OF IMPROVEMENT. N.S. CONTINUES TO RUN AT 75ML/HR AT THIS TIME. BED IN LOW POSITION, BED ALARM ON, CALL LIGHT IN REACH AND PT DENIES ANY NEEDS AT THIS TIME.
--- NOTE | 2019-02-05 21:15 | NUR ---
NOTE PT ABLE TO OPEN EYES WHEN ASKED. PT STUCK OUT TONGUE AND SMILLED WHEN ASKED. PROCEEDED TO GIVE PT BITE OF APPLESAUCE. HEAD OF BED UP. AND TOLERATED WELL. GAVE EVENING MEDICATIONS IN APPLESAUCE.
[2019-02-06 04:01] LABS: BASOPHILS ABSOLUTE AUTO 0.63 K/mm3 (0.00-0.23); BASOPHILS PERCENT AUTO 1 % (0-2); Hematocrit 32.3 % (37.0-53.0); Hemoglobin 9.6 g/dL (13.5-17.5); Mean Corpuscular HGB 26.5 pg (26.0-34.0); Mean Corpuscular HGB Conc 29.7 g/dL (31.5-36.5); Mean Corpuscular Volume 89 fL (80-100); NRBC ABSOLUTE 3.33 K/mm3 (0.00-0.02); NRBC Auto 4.5 /100 WBC (0.0-0.2); Platelet Count 219 K/mm3 (150-400); RDW Coefficient Variation 23.1 % (11.7-14.2); Red Blood Cell Count 3.62 M/mm3 (4.30-5.90)
[2019-02-06 04:04] LABS: EOSINOPHILS ABSOLUTE AUTO 1.69 K/mm3 (0.00-0.68); EOSINOPHILS PERCENT AUTO 2 % (0-6); IMMATURE GRAN ABSOLUTE AUTO 5.21 K/mm3 (0.00-0.10); IMMATURE GRAN PERCENT AUTO 7 % (0-1); LYMPHOCYTES ABSOLUTE AUTO 2.11 K/mm3 (0.84-5.20); LYMPHOCYTES PERCENT AUTO 3 % (21-46); MONOCYTES ABSOLUTE AUTO 12.84 K/mm3 (0.16-1.47); MONOCYTES PERCENT AUTO 17 % (4-13); NEUTROPHILS ABSOLUTE AUTO 52.05 K/mm3 (1.96-9.15); NEUTROPHILS PERCENT AUTO 70 % (41-73)
[2019-02-06 04:05] LABS: White Blood Cell Count 74.53 K/mm3 (4.00-11.30)
[2019-02-06 04:18] LABS: Albumin, Blood 2.5 g/dL (3.4-5.0); Anion Gap 10 mmol/L (6-16); Blood Urea Nitrogen 80 mg/dL (8-24); Bun/Creatinine Ratio 19.9 (12.0-20.0); CO2, Blood 29 mmol/L (21-32); Chloride, Blood 99 mmol/L (98-108); Creatinine, Blood 4.03 mg/dL (0.60-1.20); Glomerular Filtration Rate 15 (60-); Glucose, Blood 163 mg/dL (70-99); Phosphorus, Blood 5.2 mg/dL (2.5-4.9); Potassium, Blood 3.6 mmol/L (3.5-5.5); Sodium, Blood 138 mmol/L (136-145)
[2019-02-06 04:22] LABS: BAND PERCENT MAN 8 % (0-8); BASOPHILS PERCENT MAN 0 % (0-2); EOSINOPHILS ABSOLUTE MAN 1.49 K/mm3 (0.00-0.68); EOSINOPHILS PERCENT MAN 2 % (0-6); METAMYELOCYTE ABSOLUTE MAN 2.23 K/mm3 (0.00-0.00); METAMYELOCYTE PERCENT MAN 3 % (0-0); MONOCYTES ABSOLUTE MAN 8.19 K/mm3 (0.16-1.47); MONOCYTES PERCENT MAN 11 % (4-13); MYELOCYTE ABSOLUTE MAN 1.49 K/mm3 (0.00-0.00); MYELOCYTE PERCENT MAN 2 % (0-0); NEUTROPHILS ABSOLUTE MAN 61.11 K/mm3 (1.96-9.15); SEG NEUTROPHILS PERCENT MAN 74 % (41-73); TOTAL CELLS COUNTED 100
--- NOTE | 2019-02-06 04:42 | NUR ---
NOTE RECIEVED RESULTS OF BLOOD CULTURE OF GRAM POSITIVE COCCI. NOTIFIED PHYSICAN OF THIS TO ENSURE ANTIBITOTIC WOULD COVER THIS. NO CHANGES IN ORDERS AT THIS TIME.
--- NOTE | 2019-02-06 05:21 | NUR ---
SHIFT SUMMARY PT MENTATION REMAINS THE SAME T/O SHIFT. PT ABLE TO ANSWER QUESTIONS WHEN ASKED. AND FOLLOW DIRECTIONS BUT REMAINS EXCESSIVELY SLEEPY. PT BLOOD PRESSURE REMAIN LOW BUT INCREASED SINCE START OF SHIFT. FLUID CONTINUE TO RUN AT THIS TIME. LUNG SOUNDS REMAIN UNCHAGNES SINCE BEGGINING OF SHIFT. NO S/SX OF ANY CHANGES IN EDEMA. OXYGEN REMAINS IN PLACE WITH SATS IN 90'S. WHILE STAFF IN ROOM PT COUGH UP SOME SPUTUM THAT WAS BLOOD. THIS ONLY OCCURED ONCE DURING SHIFT. CONTINUED TO REPOSITION PT. BED IN LOW POSITION, CALL LIGHT IN REACH AND PT DENIES ANY NEEDS AT THIS TIME. WILL CONTINUE TO MONITOR UNTIL HANDOFF TO DAYSHIFT RN.
--- NOTE | 2019-02-06 08:00 | NUR ---
PT LAYING IN BED AWAKE, RESPONDS TO QUESTIONS WITH YES OR NO, DOES NOT CONTRIBUTE TO THE CONVERSATION. FOLLOWS SOME COMMANDS. LUNGS ARE CLEAR IN UPPER VERDUZCO, DIM IN BASES, RESP EVEN AND UNLABORED, NO COUGH NOTED, HRR, TELE IN PLACE RUNNING SR 100% PACED, TRACE EDEMA NOTED TO B/L LE, PPP+1, CAP REFILL <3SEC, VS STABLE, AFEBRILE, IV SITE IS CLEAR AND PATENT, INFUSING NS AT 50MLS/HR ORDERED, BTX4, ABD ROUND SOFT NONTENDER, INCONT OF URINE AND STOOL, SKIN HAS A PINK AREA TO COCCYX, HAS OINTMENT ON IT AT THIS TIME, HAS SOME BRUISING WELL, MAEW, WEAK, EMILY CALL LIGHT IN PRABHJOT.
--- NOTE | 2019-02-06 13:30 | NUR ---
PT RESTING QUIETLY, DAUGHTER IN TO SEE HIM, ALL HER QUESTIONS WERE ANSWERED, PT WAS FEBRILE, TYLENOL GIVEN FOR COMFORT. CALL LIGHT IN REACH.
--- NOTE | 2019-02-06 15:33 | NUR ---
pt daughter told seeing eye dog teacher that his color changed, she did v.s. got a low b/p. this nurse got in the 70's, call to Dr. Canales, she ordered a 500mls bolus. this was started. family in room. layed pt flat. will closely monitor v.s.
--- NOTE | 2019-02-06 16:21 | NUR ---
PT HAD A 29 BEAT RUN OF [employer], DR. DURBIN WAS NOTIFIED. SHE WAS ALSO UPDATED ON B/P. SHE STARTED HIM ON MIDODRINE FOR LOW B/P. DAUGHTER IN ROOM, CALL LIGHT IN REACH.
--- NOTE | 2019-02-06 18:23 | NUR ---
WAS IN TO SEE PT. NEW ORDERS, PT B/P REMAINS LOW, BUT IN THE 80-90'S NOW. PLACED A DRESSING FOR PREVENTION TO COCCYX IS A BIT PINK. FAMILY IN ROOM WITH PT. BLADDER SCAN WAS DONE, HAD 267 IN BLADDER, DR. BUNN WAS IN ROOM WHEN THIS WAS DONE AND DID NOT WANT ARDON, HE WAS CHANGED WITH WET ATTENDS FOUR TIMES, AND TURNED Q 2 HRS. NO FURTHER CHANGES THIS SHIFT. CALL LIGHT IN REACH.
[2019-02-06 18:30] LABS: Magnesium, Blood 2.3 mg/dL (1.6-2.4)
[2019-02-06 18:32] LABS: Potassium, Blood 3.3 mmol/L (3.5-5.5); Thyroid Stimulating Hormone 11.5 uIU/mL (0.360-4.800)
--- NOTE | 2019-02-06 19:46 | NUR ---
Initial Visit: Palliative Care Consult for Adanced Care Planning. Pt is resting in bed with his eyes closed upon arrival and appears comfortable. Pt's daughter Olivia is present during visit. Olivia reports the Pt has not been experiencing pain, anxiety, or nausea. She does reports mild dyspnea for Pt. Engaged in therapeutic conversation regarding advance care planning. Olivia reports Pt lives at [facility] and reports adequate care need support. Pt is of Mandaen lexy. Educated Olivia on the importance of communication with PCP and specialists regarding Pt disease process and trajectory of disease to plan accordingly. Olivia reports she keeps updated with all of Pt's doctors and is kept up to date with Pt's disease process. She also reports being aware of option for hospice if PCP and specialists feel if Pt has reached end of life. Olivia reports at [facility] he is able to feed self and is able to transport him self in the wheel chair. Also at baseline Pt requires assistance with dressing and bathing. Occasional incontinence. Currently Pt requires assistance with bathing, dressing, and is bedbound. Pt also experiences frequent incontinence and needs assistance with feeding. Olivia reports biggest concern at this point is having communication with hospitalist for update and plan. She also expressed frustrations regarding gap in time for Pt's kidney docotor being consulted. Olivia also exresses concern that Pt's asset management lead has not been consulted. Sugested to write concerns down and address with hospitalist when rounds are made. Summarized goals with Olivia. Olivia would like to speak with hospitalist for update and plan and would like Pt's cardiolosgist consulted. Olivia reports no other concerns at this time. Olivia is agreeable for palliative care to F/U with therapeutic visits. Spoke with Pt's night bedside nurse Sofia. Sofia is agreeable to report to day shift nurse to make hospitalist aware of family wanting information. Sofia reports no other concerns at this time. Scores below are not baseline. PPS 30% Karnofsky 40% ADLs 6/6 Plan: Wrote request for hospitalist to contact Olivia with update and plan. Will remain available for therapeutic visits.
--- NOTE | 2019-02-07 02:05 | NUR ---
PCU NIGHTSHIFT ASSUMED CARE OF PT APPROX. 1900. PT LETHARGIC AND EXCESSIVELY SLEEPY. BUT ARROUSABLE AND ABLE TO ANSWERED QUESTIONS. LESS LETHARGIC THAN YESTERDAY EVENING. ASSESSMENT COMPLETED. LUQ FIRM. 1L OXYGEN VIA N.C. IN PLACE WITH SATS IN 90'S. BLOOD PRESSURE SLIGLHLTY LOW. SBP IN 90'S THIS UP FROM PREVIOUS BLOOD PRESSURES. PMD AWARE. N.S. CONTINUES TO RUN AT 100ML/HR AT THIS TIME. BED IN LOW POSITION, BED ALARM ON, CALL LIGHT IN REACH AND PT DENIES ANY NEEDS AT THIS TIME.
[2019-02-07 04:25] LABS: BASOPHILS ABSOLUTE AUTO 0.53 K/mm3 (0.00-0.23); BASOPHILS PERCENT AUTO 1 % (0-2); Hematocrit 29.3 % (37.0-53.0); Hemoglobin 8.8 g/dL (13.5-17.5); Mean Corpuscular HGB 26.1 pg (26.0-34.0); Mean Corpuscular Volume 87 fL (80-100); NRBC ABSOLUTE 1.81 K/mm3 (0.00-0.02); NRBC Auto 2.9 /100 WBC (0.0-0.2); Platelet Count 191 K/mm3 (150-400); RDW Coefficient Variation 22.8 % (11.7-14.2); RDW Standard Deviation 68.8 fL (35.1-46.3); Red Blood Cell Count 3.37 M/mm3 (4.30-5.90)
[2019-02-07 04:27] LABS: EOSINOPHILS ABSOLUTE AUTO 0.41 K/mm3 (0.00-0.68); EOSINOPHILS PERCENT AUTO 1 % (0-6); IMMATURE GRAN ABSOLUTE AUTO 4.38 K/mm3 (0.00-0.10); IMMATURE GRAN PERCENT AUTO 7 % (0-1); LYMPHOCYTES ABSOLUTE AUTO 2.03 K/mm3 (0.84-5.20); LYMPHOCYTES PERCENT AUTO 3 % (21-46); MONOCYTES ABSOLUTE AUTO 8.86 K/mm3 (0.16-1.47); MONOCYTES PERCENT AUTO 14 % (4-13); NEUTROPHILS ABSOLUTE AUTO 46.13 K/mm3 (1.96-9.15); NEUTROPHILS PERCENT AUTO 74 % (41-73)
[2019-02-07 04:28] LABS: White Blood Cell Count 62.34 K/mm3 (4.00-11.30)
[2019-02-07 04:47] LABS: BAND PERCENT MAN 11 % (0-8); BASOPHILS PERCENT MAN 0 % (0-2); EOSINOPHILS ABSOLUTE MAN 1.24 K/mm3 (0.00-0.68); EOSINOPHILS PERCENT MAN 2 % (0-6); LYMPHOCYTES ABSOLUTE MAN 1.87 K/mm3 (0.84-5.20); LYMPHOCYTES PERCENT MAN 3 % (21-46); METAMYELOCYTE ABSOLUTE MAN 2.49 K/mm3 (0.00-0.00); METAMYELOCYTE PERCENT MAN 4 % (0-0); MONOCYTES ABSOLUTE MAN 9.97 K/mm3 (0.16-1.47); MONOCYTES PERCENT MAN 16 % (4-13); MYELOCYTE ABSOLUTE MAN 0.62 K/mm3 (0.00-0.00); MYELOCYTE PERCENT MAN 1 % (0-0); NEUTROPHILS ABSOLUTE MAN 46.13 K/mm3 (1.96-9.15); SEG NEUTROPHILS PERCENT MAN 63 % (41-73); TOTAL CELLS COUNTED 100
[2019-02-07 04:48] LABS: Alanine Aminotransfer (ALT/SGP 20 U/L (12-78); Albumin, Blood 2.3 g/dL (3.4-5.0); Albumin/Globulin Ratio 0.5 (0.8-1.8); Alk Phos 156 U/L (50-136); Anion Gap 9 mmol/L (6-16); Bilirubin, Total 1.1 mg/dL (0.1-1.0); Blood Urea Nitrogen 88 mg/dL (8-24); CO2, Blood 27 mmol/L (21-32); Calcium, Blood 7.6 mg/dL (8.5-10.1); Chloride, Blood 104 mmol/L (98-108); Globulin, Blood 4.7 g/dL (2.2-4.0); Glomerular Filtration Rate 15 (60-); Glucose, Blood 176 mg/dL (70-99); Magnesium, Blood 2.3 mg/dL (1.6-2.4); Phosphorus, Blood 4.9 mg/dL (2.5-4.9); Potassium, Blood 3.4 mmol/L (3.5-5.5); Sodium, Blood 140 mmol/L (136-145); Vancomycin, Random 15.2 ug/mL
[2019-02-07 04:53] LABS: Aspartate Aminotrans (AST/SGOT 47 U/L (12-37)
--- NOTE | 2019-02-07 05:33 | NUR ---
SHIFT SUMMARY PT MENTATION REMAINS THE SAME T/O SHIFT. PT ABLE TO ANSWER QUESTIONS WHEN ASKED AND FOLLOW DIRECTIONS BUT EXCESSIVELY SLEEPY. PT BLOOD PRESSURE REMAINS LOW BUT CONSISTENT. FLUID CONTINUE TO RUN AT THIS TIME AT 100ML/HR. LUNG SOUNDS REMAIN UNCHANGED SINCE BEGINING OF SHIFT. NO S/SX OF ANY CHANGES IN EDEMA. OXYGEN REMAINS IN PLACE WITH SATS IN 90'S. CONTINUED TO REPOSITION PT. PT ABLE TO REST MOST OF SHIFT. BED IN LOW POSITION, CALL LIGHT IN REACH AND PT DENIES ANY NEEDS AT THIS TIME. WILL CONTINUE TO MONITOR UNTIL HANDOFF TO DAYSHIFT RN.
--- NOTE | 2019-02-07 08:56 | NUR ---
ASSUMED CARE OF PT AT 0700. PT SLEEPING IN BED. IV IN R AC INFUSING. HEART SOUNDS REGULAR. PACED WITH L BUNDLE BRANCH BLOCK. ABDOMEN SOFT WITH HYPOACTIVE SOUNDS. ECHO BEING PREFORMED NOW. WILL CONTINUE TO MONITOR. CALL LIGHT IN REACH. BED ALARM ON. BED IN LOWEST POSTION.
--- NOTE | 2019-02-07 10:34 | NUR ---
ECHOCARDIOGRAM COMPLETE
--- NOTE | 2019-02-07 17:28 | NUR ---
Pt visit this afternoon. Pt resting in bed and reports of a head ache. Attempted in therapeutic discussion for any concerns but pt appears tired and lethargic. Asked if this RN can do anything for him and he responds with a request for milk. Instructed Pt this RN will discuss request with his bedside nurse. No other concerns reported. Spoke with Pt's nurse Sapna and reported his head ache and request for milk. Sapna reports she will take care of needs. Sapna reports family may benefit from discussion of code status. No other concerns reported at this time. Will reamin available for therapeutic visits and assess family's understanding of code status when appropriate.
--- NOTE | 2019-02-07 17:28 | NUR ---
PT IS SITTING UP IN BED WHILE HIS DAUGHTER FEEDS HIM DINNER. DAUGHTER HAS BEEN INFORMED PF PTS CONDITION AND BLOOD RESULTS. PT HAS BEEN LETHARGIC THOUGHT THE SHIFT, SLEEPING MOST OF THE DAY. PT HAS BEEN HYPOTENSIVE THROUGHOUT THE SHIFT. DOCTOR ONI WAS INFORMED AND GAVE PT 500ML BOLUS NS. BLOOD PRESSURE STILL REMAINS LOW. PT DENIES SOB. HE HAS BEEN PASSING LOOSE, DARK STOOL. URINARY CATHETER FLOWING FREELY, URINE DARK. SCUDS IN PLACE. CALL LIGHT IN REACH. BED IN LOWEST POSITION. WILL CONTINUE TO MONITOR UNTIL SHIFT CHANGE.
--- NOTE | 2019-02-07 21:58 | NUR ---
PCU NIGHTSHIFT ASSUMED CARE OF PT APPROX. 1900. LESS LETHARGIC THAN YESTERDAY EVENING. PT ABLE TO HOLD CONVERSATION. PT ABLE TO ASK QUESTIONS AND BEGIN CONVERSATION. ASSESSMENT COMPLETED. LUQ FIRM AND UNCHANGED FROM PREVIOUS SHIFTS. 2L OXYGEN VIA N.C. IN PLACE WITH SATS IN 90'S. BLOOD PRESSURE SLIGLHLTY LOW. SBP IN 90'S THIS UP FROM PREVIOUS BLOOD PRESSURES. PMD AWARE. N.S. CONTINUES TO RUN. HOLD EVENING COLASE DUE TO LOOSE STOOLS. BED IN LOW POSITION, BED ALARM ON, CALL LIGHT IN REACH AND PT DENIES ANY NEEDS AT THIS TIME.
--- NOTE | 2019-02-08 05:08 | NUR ---
SHIFT SUMMARY PT PLEASANT. NO CHANGED IN MENTATION SINCE BEGINING OF SHIFT. PT CONTINUED TO HOLD SMALL CONVERSATIONS AND QUESTIONS QUESTIONS. PT INQUIRED ABOUT TASKS. PT OPEN EYES TO THE SOUND OF STAFF IN ROOM AND TRACKED STAFF WITH EYES. ARDON REMAINS IN PLACE, PATENT AND DRAINING. REPOSITIONED EVERY 2 HOURS. VITAL SIGNS REMAIN STABLE. TEMPARTURE SLIGHTLY ELEVATED THIS AM AT 99.6. REMOVED ONE BLANKET AND WILL MONITOR THIS. BED IN LOW POSITION, CALL LIGHT IN REACH AND PT DENIES ANY NEEDS AT THIS TIME. WILL CONTINUE TO MONITOR UNTIL HANDOFF TO DAYSHIFT RN.
[2019-02-08 05:38] LABS: Hematocrit 29.7 % (37.0-53.0)
[2019-02-08 05:59] LABS: Albumin, Blood 2.2 g/dL (3.4-5.0); Anion Gap 9 mmol/L (6-16); Blood Urea Nitrogen 91 mg/dL (8-24); Bun/Creatinine Ratio 23.3 (12.0-20.0); CO2, Blood 25 mmol/L (21-32); Calcium, Blood 7.9 mg/dL (8.5-10.1); Chloride, Blood 105 mmol/L (98-108); Creatinine, Blood 3.91 mg/dL (0.60-1.20); Glomerular Filtration Rate 16 (60-); Glucose, Blood 232 mg/dL (70-99); Magnesium, Blood 2.5 mg/dL (1.6-2.4); PSA, %Free 22.2 %; PSA, Free 0.164 ng/mL; Phosphorus, Blood 3.9 mg/dL (2.5-4.9); Potassium, Blood 3.9 mmol/L (3.5-5.5); Prostate Specific Antigen 0.738 ng/mL (0.000-4.000); Sodium, Blood 139 mmol/L (136-145)
--- NOTE | 2019-02-08 07:17 | NUR ---
NURSING PCU DAYSHIFT: Assumed care of pt at approx 0700. Oriented to self, follows commands, cooperative w/care, able to answer general questions. General weaknes noted, denies any pain/discomfort. Skin is fragile, scattered bruising on UE's, redness to coccyx reported. Tele in place, ICD to LCW, paced w/BBB, SBP 85, trace general edema. 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 Abd moderately distended, BT+, FC in place and draining dark yellow urine. PIV x2, NS infusing at 50cc/hr. No s/s of acute distress at this time. Bed alarm set for safety purposes. Call light in reach though frequent rounding is required d/t pt's inability to use call system appropriately. Pt denies any current needs. Will maintain Q2hr turn schedule to promote circulation and pressure ulcer prevention. Seen by integrated circuit design engineer, new d/o received, awaiting rounding from PMD. Cont to monitor for any changes.
--- NOTE | 2019-02-08 11:18 | NUR ---
Clinical Visit: Pt is alert, oriented to self and situation. Reports that he is going to a intermediate. Pt's , Donal, is in the room; along with a close friend. She states that before this, pt was driving and taking care of himself. They had no need for caregivers, and this will be a total change of lifestyle for them. Donal realizes that he may never be the same from now on. Pt gets momentarily agitated because he wants to return to his bed. He has been closing his eyes frequently during our conversation and does so in the middle of talking. Dusky appearance, denies pain and anxiety. Spoke to pt's nurse. She states that he transfers with one person assist, using gait belt and walker. Speak in low tones, pt follows directions well. Pt is transfered using the above, pt did well and was placed in bed. Nurse assisted with scooting him up in bed. Pillow placed, knees elevated. Pt appears comfortable. is remaining at bedside until her daughter arrives, then she is going to lunch. She is asking when pt will discharge to facility. Answered that I will inquire about this to care management and get back to her. Card and information given. Pt does have a POLST, Donal states. She offers to sign another POLST if needed. She confirms FULL code status, and states that this is what is filled out on the POLST. Donal states that pt does not look well, and for the last 3 days has been looking very poorly to her. Will follow up with care managment and get back to Donal regarding her inquiry into when pt will be discharged from the hospital. Fax to [place] to request POLST and/or advance directive.
--- NOTE | 2019-02-08 15:47 | NUR ---
Spiritual care visit conducted. Patient is resting but responded well to the sound of his name. Patient said that he remembered me from my prior visit. Patient acknowledged that he knows that he is loved and that he knows his family is pulling for him. Patient answered affirmingly when asked if I could pray for him. I provided prayer and patient concluded with a solid "Amen." Patient voiced that he was glad to see me today.
--- NOTE | 2019-02-08 17:28 | NUR ---
NURSING PCU DAYSHIFT SUMMARY: No significant changes noted t/o the shift. Remained hypotensive, cardiac meds held per parameters. Pt appeared more alert today and interacted w/staff. Remained very pleasant and was cooperative w/care. Denies any discomfort or needs. Bedbath/linen change completed. Family at bedside for a short period, update provided, denied additional questions. Pt appears to be resting comfortably at this time, no s/s of acute distress, cont to monitor until rpt is given to NOC RN.
--- NOTE | 2019-02-08 20:21 | NUR ---
PM NOTE. ASSUMED CARE OF PT APROX 1900, PT IS A&O WITH TIMES OF CONFUSION, PT RESPONDS TO VERBAL STIMULI AND IS ABLE TO ANSWER SIMPLE QUESTIONS. PT WAS ADMITTED DUE TO LIS. PT WAS FEBRILE TODAY AT 100.9, PT WAS MEDICATED PER EMAR. TELE INTACT, SR W/BBB AND PACS IN THE 80'S PER NITROCELLULOSE MAKER. PT'S BP 91/49. PT HAS TRACE EDEMA TO HIS BLLE. L/S DIM W/FINE CRACKELS TO THE LOWER BASES, PT IS ON 2L NC AT 96%. BT PRESENT AND HYPOACTIVE, ABD IS MOD DISTENDED, SOFT AND NONTENDER TO PALP. THERE IS A GOLF BALL SIZE HARD ROUND AREA TO THE PT'S LUQ, PT'S FAMILY STATES "THIS COMES AND GOES." PT DEINES ANY PAIN TO THIS AREA. PT HAS ARDON THAT IS PATENT AND DRAINING CLEAR YELLOW URINE TO GRAVITY. CALL LIGHTIN REACH, BED IS LOCKED AND LOW WILL CONTINUE TO MONITOR.
[2019-02-09 04:01] LABS: Hematocrit 29.3 % (37.0-53.0); Hemoglobin 8.8 g/dL (13.5-17.5)
[2019-02-09 04:21] LABS: Albumin, Blood 2.2 g/dL (3.4-5.0); Anion Gap 7 mmol/L (6-16); Blood Urea Nitrogen 92 mg/dL (8-24); Bun/Creatinine Ratio 25.4 (12.0-20.0); CO2, Blood 25 mmol/L (21-32); Calcium, Blood 8.2 mg/dL (8.5-10.1); Chloride, Blood 109 mmol/L (98-108); Creatinine, Blood 3.62 mg/dL (0.60-1.20); Glomerular Filtration Rate 17 (60-); Glucose, Blood 175 mg/dL (70-99); Magnesium, Blood 2.4 mg/dL (1.6-2.4); Phosphorus, Blood 3.3 mg/dL (2.5-4.9); Potassium, Blood 3.7 mmol/L (3.5-5.5); Sodium, Blood 141 mmol/L (136-145)
--- NOTE | 2019-02-09 06:32 | NUR ---
SHIFT SUMMARY. NO ACUTE CHANGES NOTED THIS SHIFT. PT'S TEMP HAS COME DOWN AND PT IS CURRENTLY AFEBRILE. PT'S OTHER VS HAVE BEEN STABLE. PT DENIES ANY CHEST PAIN/PRESSURE, N/V OR SOB. PT HAS BEEN TURNED Q 2 HOURS. PT'S ARDON IS PATENT AND DRAINING TO GRAVITY. CALL LIGHT IN REACH, BED IS LOCKED AND LOW WILL CONTINUE TO MONITOR UNTIL REPORT IS GIVEN TO ONCOMING RN.
--- NOTE | 2019-02-09 19:19 | NUR ---
PT ALERT, ORIENTED TO SELF, PT IS PLEASANT AND COOPERATIVE, THE PT IS BERDREST AND TURNED T/O THE DAY, THE PT APPEARED TO BE BREATHING EASILY ON O2 @ 2L/MIN, OXYGEN WAS TITRATED OFF THIS AFTERNOON, BIOX RANGINING FROM 92-95%, THE PT DENIED ANY PAIN THIS AM, WITH PT WAS ASSISTED WITH HIS MEALS AND ATE WELL T/O THE DAY, CALL LIGHT IN REACH, FAMILY AT THE BEDSIDE THIS EVENING
[2019-02-10 04:47] LABS: Hemoglobin 9.1 g/dL (13.5-17.5)
[2019-02-10 05:13] LABS: Albumin, Blood 2.2 g/dL (3.4-5.0); Anion Gap 10 mmol/L (6-16); Blood Urea Nitrogen 86 mg/dL (8-24); Bun/Creatinine Ratio 26.4 (12.0-20.0); CO2, Blood 24 mmol/L (21-32); Calcium, Blood 8.3 mg/dL (8.5-10.1); Chloride, Blood 106 mmol/L (98-108); Creatinine, Blood 3.26 mg/dL (0.60-1.20); Glomerular Filtration Rate 20 (60-); Glucose, Blood 191 mg/dL (70-99); Magnesium, Blood 2.3 mg/dL (1.6-2.4); Potassium, Blood 4.1 mmol/L (3.5-5.5); Sodium, Blood 140 mmol/L (136-145)
--- NOTE | 2019-02-10 05:53 | NUR ---
SHIFT SUMMARY PT A&O, CALM AND COOPERATIVE. LUNG SOUNDS CLEAR. SPO2 > 92% ON RA. MONITOR SHOWS PACING, HR 80'S. TRACE EDEMA TO ALL EXTREMITIES, EXTREMITIES ELEVATED W/ PILLOWS. NO EVENTS OVER NIGHT. BP CONTINUES TO BE LOW, OTHERWISE VSS. WILL CONTINUE TO MONITOR AND PROVIDE CARE UNTIL REPORT OFF TO DAY SHIFT RN.
--- NOTE | 2019-02-10 08:18 | NUR ---
PT ALERT-HX OF DEMENTIA, ORIENTED TO SELF. DR BUNN IN ROOM, VERBAL ORDER FOR EDGAR HOSE AND BUMEX 2MG DAILY TO START THIS AM. VSS. REPOSITIONED UPRIGHT IN BED FOR MEAL. CONTINUE TO ENCOURAGE PO INTAKE. ARDON PATENT, DRAINING CLEAR YELLOW URINE.
--- NOTE | 2019-02-10 12:07 | NUR ---
ATTEMPTED TO CALL REPORT TO MED FLOOR RN AT APOX 1155. AWAITING RETURN CALL FOR TRANSFER TO ROOM 308.
--- NOTE | 2019-02-10 12:29 | NUR ---
2ND ATTEMPT TO CALL REPORT AT 1225 MED FLOOR RN FOR TRANSFER TO [facility]. RN CURRENTLY PLACING ARDON AND WILL CALL BACK.
--- NOTE | 2019-02-10 14:17 | NUR ---
PT TRANSFERED TO MEDICAL FLOOR AT APROX 1400. REPORT GIVEN TO MIGUEL ANGEL VOGEL RN.
--- NOTE | 2019-02-10 17:22 | NUR ---
SHIFT SUMMARY PT AXO TO SELF, FORGETFUL AND ATTEMPTS OOB AT TIMES. BED ALARM ON. PT TRANSFERRED FROM PCU 5. ARRIVED VIA BED AT 1408. REPORT RECIEVED FROM KAE FRIEDMAN RN PRIOR TO PT ARRIVAL. OCCULT STOOL SAMPLE SENT DUE TO BLACK TARRY STOOL, RESULTS PENDING AT THIS TIME. PT DENIES PAIN. BED IN LOW POSITION, CALL LIGHT WITHIN REACH. MEPILEX APPLIED TO COCCYX.
[2019-02-10 18:54] LABS: Stool Occult Bld Immuno 1 Negative (NEGATIVE)
[2019-02-11 05:04] LABS: Hematocrit 31.3 % (37.0-53.0); Hemoglobin 9.5 g/dL (13.5-17.5); Mean Corpuscular HGB 25.9 pg (26.0-34.0); Mean Corpuscular HGB Conc 30.4 g/dL (31.5-36.5); Mean Corpuscular Volume 85 fL (80-100); NRBC ABSOLUTE 1.07 K/mm3 (0.00-0.02); NRBC Auto 1.4 /100 WBC (0.0-0.2); Platelet Count 200 K/mm3 (150-400); RDW Standard Deviation 68.6 fL (35.1-46.3); Red Blood Cell Count 3.67 M/mm3 (4.30-5.90)
[2019-02-11 05:18] LABS: White Blood Cell Count 77.78 K/mm3 (4.00-11.30)
[2019-02-11 05:38] LABS: Albumin, Blood 2.2 g/dL (3.4-5.0); Albumin/Globulin Ratio 0.4 (0.8-1.8); Bilirubin, Total 0.9 mg/dL (0.1-1.0); Bun/Creatinine Ratio 26.1 (12.0-20.0); Calcium, Blood 8.3 mg/dL (8.5-10.1); Creatinine, Blood 3.14 mg/dL (0.60-1.20); Potassium, Blood 4.3 mmol/L (3.5-5.5); Total Protein, Blood 7.2 g/dL (6.4-8.2)
[2019-02-11 05:44] LABS: BASOPHILS PERCENT MAN 0 % (0-2); METAMYELOCYTE ABSOLUTE MAN 1.55 K/mm3 (0.00-0.00); METAMYELOCYTE PERCENT MAN 2 % (0-0); TOTAL CELLS COUNTED 100
--- NOTE | 2019-02-11 05:45 | NUR ---
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
[2019-02-11 05:51] LABS: BAND PERCENT MAN 5 % (0-8); BLASTS PERCENT MAN 1 % (0-0); EOSINOPHILS ABSOLUTE MAN 6.22 K/mm3 (0.00-0.68); EOSINOPHILS PERCENT MAN 8 % (0-6); LYMPHOCYTES % ATYPICAL MANUAL 1 % (0-0); LYMPHOCYTES ABSOLUTE MAN 6.22 K/mm3 (0.84-5.20); LYMPHOCYTES PERCENT MAN 7 % (21-46); MONOCYTES ABSOLUTE MAN 3.88 K/mm3 (0.16-1.47); MONOCYTES PERCENT MAN 5 % (4-13); NEUTROPHILS ABSOLUTE MAN 58.33 K/mm3 (1.96-9.15); PROMYELOCYTE ABSOLUTE MAN 0.77 K/mm3 (0.00-0.00); PROMYELOCYTE PERCENT MAN 1 % (0-0); SEG NEUTROPHILS PERCENT MAN 70 % (41-73)
--- NOTE | 2019-02-11 07:31 | NUR ---
patient c/o pain this morning (02/23) he said he had a tooth ache but had only gums on the left side of his mouth where he was pointing.
--- NOTE | 2019-02-11 18:09 | NUR ---
SHIFT SUMMARY PATIENT A&O TO SELF. VERY SLEEPY THIS SHIFT. DENIES ANY PAIN, SOB, OR NAUSEA. BP RUNNING 90-LOW 100 SYSTOLIC THIS SHIFT. MEDICATED ER E MAR. CAVEDILOL HELD PER PARAMETERS. Q2 REPOSITION. ARDON PATENT AND DRAINING. ACHS. NO ACUTE CHANGES THIS SHIFT. THIGH HIGH EDGAR HOSE IN LACE. RN WILL CONTINUE TO MONITOR.
--- NOTE | 2019-02-11 21:44 | NUR ---
insulin verified by KENYON
--- NOTE | 2019-02-12 04:59 | NUR ---
Shift summary: Pt pleasantly confused and cooperative c cares. Pt repositioned q 2 hours during night. Pt slept most of time otherwise with no c/o discomfort. Pt had one liquid bowel movement last pm. Blood sugar last pm was 284.
[2019-02-12 05:37] LABS: Hematocrit 31.5 % (37.0-53.0); Hemoglobin 9.5 g/dL (13.5-17.5)
[2019-02-12 05:58] LABS: Albumin, Blood 2.2 g/dL (3.4-5.0); Anion Gap 8 mmol/L (6-16); Blood Urea Nitrogen 79 mg/dL (8-24); Bun/Creatinine Ratio 26.2 (12.0-20.0); CO2, Blood 26 mmol/L (21-32); Calcium, Blood 8.2 mg/dL (8.5-10.1); Chloride, Blood 105 mmol/L (98-108); Creatinine, Blood 3.01 mg/dL (0.60-1.20); Glomerular Filtration Rate 21 (60-); Glucose, Blood 151 mg/dL (70-99); Magnesium, Blood 2.1 mg/dL (1.6-2.4); Phosphorus, Blood 3.1 mg/dL (2.5-4.9); Potassium, Blood 4.3 mmol/L (3.5-5.5); Sodium, Blood 139 mmol/L (136-145)
--- NOTE | 2019-02-12 19:04 | NUR ---
SHIFT SUMMARY: NO ACUTE CHANGES TO REPORT THIS SHIFT. PT ALERT; HX DEMENTIA - CONFUSED; COOPERATIVE WITH CARE. NO C/O PAIN THIS SHIFT. CHRONIC ARDON; PATENT AND DRAINING. HYPOTENSION; DOSE ADJUST THIS SHIFT. UTI-IV ABX CONTINUING. REPORT GIVEN TO ONCOMING RN.
[2019-02-13 04:51] LABS: Hemoglobin 9.8 g/dL (13.5-17.5); Mean Corpuscular HGB 25.8 pg (26.0-34.0); Mean Corpuscular HGB Conc 30.6 g/dL (31.5-36.5); Mean Corpuscular Volume 84 fL (80-100); NRBC ABSOLUTE 2.26 K/mm3 (0.00-0.02); NRBC Auto 2.6 /100 WBC (0.0-0.2); Platelet Count 256 K/mm3 (150-400); RDW Coefficient Variation 23.5 % (11.7-14.2); RDW Standard Deviation 68.4 fL (35.1-46.3)
[2019-02-13 05:06] LABS: Albumin, Blood 2.3 g/dL (3.4-5.0); Anion Gap 9 mmol/L (6-16); Blood Urea Nitrogen 74 mg/dL (8-24); Bun/Creatinine Ratio 25.3 (12.0-20.0); CO2, Blood 24 mmol/L (21-32); Calcium, Blood 8.3 mg/dL (8.5-10.1); Chloride, Blood 104 mmol/L (98-108); Creatinine, Blood 2.92 mg/dL (0.60-1.20); Glomerular Filtration Rate 22 (60-); Glucose, Blood 213 mg/dL (70-99); Magnesium, Blood 2.2 mg/dL (1.6-2.4); Phosphorus, Blood 3.1 mg/dL (2.5-4.9); Potassium, Blood 4.7 mmol/L (3.5-5.5); Sodium, Blood 137 mmol/L (136-145)
[2019-02-13 05:17] LABS: White Blood Cell Count 86.75 K/mm3 (4.00-11.30)
[2019-02-13 05:45] LABS: BAND PERCENT MAN 4 % (0-8); BASOPHILS PERCENT MAN 0 % (0-2); EOSINOPHILS ABSOLUTE MAN 3.47 K/mm3 (0.00-0.68); EOSINOPHILS PERCENT MAN 4 % (0-6); LYMPHOCYTES ABSOLUTE MAN 0.86 K/mm3 (0.84-5.20); LYMPHOCYTES PERCENT MAN 1 % (21-46); MONOCYTES ABSOLUTE MAN 4.33 K/mm3 (0.16-1.47); MONOCYTES PERCENT MAN 5 % (4-13); MYELOCYTE PERCENT MAN 3 % (0-0); PROMYELOCYTE ABSOLUTE MAN 0.86 K/mm3 (0.00-0.00); PROMYELOCYTE PERCENT MAN 1 % (0-0); SEG NEUTROPHILS PERCENT MAN 82 % (41-73); TOTAL CELLS COUNTED 100
--- NOTE | 2019-02-13 06:11 | NUR ---
SHIFT SUMMARY: PT WAKES TO VERBAL STIMULI, ALERT TO SELF ONLY, ONLY ANSWERS SOME Q'S/FOLLOWS SOME COMMANDS. LS CLEAR, RESP E/U ON RA. ARDON IN PLACE D/T RETENTION. PT HAS SEVERAL LOOSE BM's TONIGHT, INCONTINENT. BEDREST; Q2H TURNS. MEDS WHOLE c APPLESAUCE. CBG @ 299 TONIGHT; INSULIN ADMINISTERED PER LOW SS + 10 UNITS LANTUS. PT HAS CRITICAL HIGH WBC THIS AM OF 86. TRENDING IN CONSISTENT DIRECTION. NO OTHER CHANGES TO REPORT. WILL CONT TO MONITOR AND PROVIDE CARE UNTIL PRESUMED BY ONCOMING RN.
--- NOTE | 2019-02-13 10:11 | NUR ---
Pt visit this AM. Pt resting in bed and appears comfortable. Pt is A&Ox2 and dennies pain at this time. Pt appears lethargic and verbal responses are minimal. Spoke with Dr Eagle and she reports family would benefit from a discussion regarding code status. Discussed prvious visit with Pt's daughter and reported to Dr Eagle that daugher is adamant with maintaining current code status. Left voice message with facility nurse Gabriela at [facility] to discuss level of function and any concerns for Pt that palliative care may assist with. Palliative Care will remain available.
--- NOTE | 2019-02-13 19:08 | NUR ---
SHIFT SUMMARY: NO ACUTE CHANGES TO REPORT THSI SHIFT. HX DEMENTIA; PT CONFUSED; ALERT; COOPERATIVE WITH CARE. ARDON CATHETER D/C'd THIS SHIFT; PT INCONTINENT-VOIDING INTO DEPENDS. DR BUNN FOLLOWING R/T LIS. 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 IV ABX CONTINUING. REPORT GIVEN TO ONCOMING RN.
[2019-02-14 04:56] LABS: Hematocrit 31.5 % (37.0-53.0); Hemoglobin 9.6 g/dL (13.5-17.5); Mean Corpuscular HGB 25.7 pg (26.0-34.0); Mean Corpuscular HGB Conc 30.5 g/dL (31.5-36.5); Mean Corpuscular Volume 85 fL (80-100); NRBC ABSOLUTE 2.88 K/mm3 (0.00-0.02); NRBC Auto 3.2 /100 WBC (0.0-0.2); Platelet Count 278 K/mm3 (150-400); RDW Coefficient Variation 23.6 % (11.7-14.2); RDW Standard Deviation 68.9 fL (35.1-46.3); Red Blood Cell Count 3.73 M/mm3 (4.30-5.90)
[2019-02-14 05:01] LABS: Albumin, Blood 2.3 g/dL (3.4-5.0); Anion Gap 7 mmol/L (6-16); Blood Urea Nitrogen 73 mg/dL (8-24); Bun/Creatinine Ratio 24.7 (12.0-20.0); CO2, Blood 25 mmol/L (21-32); Calcium, Blood 8.6 mg/dL (8.5-10.1); Chloride, Blood 106 mmol/L (98-108); Creatinine, Blood 2.96 mg/dL (0.60-1.20); Glomerular Filtration Rate 22 (60-); Glucose, Blood 160 mg/dL (70-99); Magnesium, Blood 2.3 mg/dL (1.6-2.4); Phosphorus, Blood 3.9 mg/dL (2.5-4.9); Potassium, Blood 4.9 mmol/L (3.5-5.5); Sodium, Blood 138 mmol/L (136-145)
[2019-02-14 05:08] LABS: White Blood Cell Count 89.38 K/mm3 (4.00-11.30)
[2019-02-14 06:07] LABS: BAND PERCENT MAN 7 % (0-8); BASOPHILS ABSOLUTE MAN 1.78 K/mm3 (0.00-0.23); BASOPHILS PERCENT MAN 2 % (0-2); EOSINOPHILS ABSOLUTE MAN 5.36 K/mm3 (0.00-0.68); EOSINOPHILS PERCENT MAN 6 % (0-6); LYMPHOCYTES ABSOLUTE MAN 4.46 K/mm3 (0.84-5.20); LYMPHOCYTES PERCENT MAN 5 % (21-46); METAMYELOCYTE ABSOLUTE MAN 4.46 K/mm3 (0.00-0.00); METAMYELOCYTE PERCENT MAN 5 % (0-0); MONOCYTES ABSOLUTE MAN 6.25 K/mm3 (0.16-1.47); MONOCYTES PERCENT MAN 7 % (4-13); MYELOCYTE ABSOLUTE MAN 6.25 K/mm3 (0.00-0.00); MYELOCYTE PERCENT MAN 7 % (0-0); NEUTROPHILS ABSOLUTE MAN 59.88 K/mm3 (1.96-9.15); PROMYELOCYTE ABSOLUTE MAN 0.89 K/mm3 (0.00-0.00); PROMYELOCYTE PERCENT MAN 1 % (0-0); SEG NEUTROPHILS PERCENT MAN 60 % (41-73); TOTAL CELLS COUNTED 100
--- NOTE | 2019-02-14 07:37 | NUR ---
02/14/19 0630 AWAKENED FOR AM MEDS. RESPONDS WITH ONE WORD ANSWERS. DENIES ANY PAIN OR S/S. VITALS STABLE. REPOSITIONED Q 2 HOURS. GOOD ORAL AND YODIT-CARE GIVEN.
--- NOTE | 2019-02-14 18:26 | NUR ---
SHIFT SUMMARY- PT RESPONDS TO VERBAL STIMULI. PT ONLY SPOKE A FEW WORDS THIS SHIFT. PT UNABLE TO ANSWER ANY OF MY QUESTIONS. HX OF DEMENTIA. PT DOES NOT APPEAR TO BE IN ANY PAIN/DISCOMFORT. RESP E/U ON RA. BEDREST AT THIS TIME. TURNS Q2H. COCCYX RED. PREVENTATIVE MEPILEX PLACED ON COCCYX TO PREVENT SKIN BREAKDOWN. BP 121/69 THIS PM. NO OTHER SIGNIFICANT CHANGES THIS SHIFT.
[2019-02-15 06:00] LABS: Albumin, Blood 2.2 g/dL (3.4-5.0); Anion Gap 10 mmol/L (6-16); Blood Urea Nitrogen 71 mg/dL (8-24); Bun/Creatinine Ratio 23.3 (12.0-20.0); CO2, Blood 24 mmol/L (21-32); Chloride, Blood 106 mmol/L (98-108); Creatinine, Blood 3.05 mg/dL (0.60-1.20); Glomerular Filtration Rate 21 (60-); Glucose, Blood 91 mg/dL (70-99); Magnesium, Blood 2.4 mg/dL (1.6-2.4); Phosphorus, Blood 5.3 mg/dL (2.5-4.9); Sodium, Blood 140 mmol/L (136-145)
[2019-02-15 06:52] LABS: Hematocrit 31.1 % (37.0-53.0); Hemoglobin 9.4 g/dL (13.5-17.5)
--- NOTE | 2019-02-15 07:03 | NUR ---
SHIFT SUMMARY: PT IS ALERT TO SELF ONLY, OPENS EYES TO VERBAL STIMULI, MOSTLY NONVERBAL. PT HYPOTENSIVE, 90/50'S. DR AWARE. LS DIM T/O, RESP E/U ON RA. PT VOIDS SEVERAL TIMES T/O THE NIGHT. Q2H TURNS T/O THE SHIFT. PT UNABLE TO FOLLOW DIRECTIONS TO SAFELY SWALLOW; SWALLOW EVAL ORDERED THIS AM. BLOOD SUGAR 145 TONIGHT, ADMINISTERED INSULIN PER ORDERS. L ARM SWOLLEN AND RED, ELEVATED ON PILLOWS c LITTLE IMPROVEMENT. SKIN BREAKDOWN NOTED TO L BUTTOCK, MEPILEX APPLIED. NEW ORDERS FOR NS @ 50 ML/HR. WILL CONT TO MONITOR AND PROVIDE CARE UNTIL PRESUMED BY ONCOMING RN.
--- NOTE | 2019-02-15 18:45 | NUR ---
SHIFT SUMMARY PT AXO TO SELF AND FOLLOWING DIRECTIONS. PT PAINFUL WITH MOVEMENT OF HIS RIGHT ARM. SLEPT MOST OF THE DAY. SWELLING IN L ARM REPORTED TO DR BOYD AT BEGINNING OF SHIFT. IV PATENT AND INFUSING PER EMAR AT THIS TIME. LUKE'S NURSE ASSESSED PT AND DISCUSSED WITH RILEY GUZMAN, SEE NOTE. VSS. BED IN LOW POSITION, CALL LIGHT WITHIN REACH, BED ALARM ON.
--- NOTE | 2019-02-15 19:34 | NUR ---
[facility] CALLED AND REQUESTS MOVE L ARM VENOUS DOPPLER TO TOMORROW.
[2019-02-16 05:12] LABS: Hematocrit 33.3 % (37.0-53.0); Hemoglobin 9.9 g/dL (13.5-17.5); Mean Corpuscular HGB 25.4 pg (26.0-34.0); Mean Corpuscular HGB Conc 29.7 g/dL (31.5-36.5); Mean Corpuscular Volume 85 fL (80-100); NRBC ABSOLUTE 3.14 K/mm3 (0.00-0.02); NRBC Auto 3.6 /100 WBC (0.0-0.2); Platelet Count 265 K/mm3 (150-400); RDW Coefficient Variation 23.7 % (11.7-14.2); RDW Standard Deviation 70.3 fL (35.1-46.3)
[2019-02-16 05:19] LABS: White Blood Cell Count 87.61 K/mm3 (4.00-11.30)
[2019-02-16 05:48] LABS: Albumin, Blood 2.2 g/dL (3.4-5.0); Anion Gap 9 mmol/L (6-16); Blood Urea Nitrogen 68 mg/dL (8-24); Bun/Creatinine Ratio 23.9 (12.0-20.0); CO2, Blood 21 mmol/L (21-32); Chloride, Blood 107 mmol/L (98-108); Creatinine, Blood 2.84 mg/dL (0.60-1.20); Glomerular Filtration Rate 23 (60-); Glucose, Blood 185 mg/dL (70-99); Magnesium, Blood 2.4 mg/dL (1.6-2.4); Phosphorus, Blood 5.5 mg/dL (2.5-4.9); Potassium, Blood 4.9 mmol/L (3.5-5.5); Sodium, Blood 137 mmol/L (136-145)
--- NOTE | 2019-02-16 05:59 | NUR ---
SHIFT SUMMARY: PT MORE ALERT TONIGHT. AROUSABLE TO NAME, MUCH MORE VERBAL AND CONVERSATIONAL. PT HAS TWO ENSURES MIXED c VANILLA ICECREAM FOR SNACKS TONIGHT. MEDS CRUSHED c APPLESAUCE, FULL LIQUID DIET PER SWALLOW EVAL. FLUIDS DC'd THIS AM PER DR BUNN. L ARM CONT TO BE RED/SWOLLEN. VENOUS DOPPLER US TO TAKE PLACE TODAY, 02/16, PER US TECH. Q2H COMPLETED. NO OTHER CHANGES TO REPORT. WILL CONT TO MONITOR AND PROVIDE CARE UNTIL PRESUMED BY ONCOMING RN.
[2019-02-16 06:44] LABS: BAND PERCENT MAN 8 % (0-8); BASOPHILS ABSOLUTE MAN 0.87 K/mm3 (0.00-0.23); BASOPHILS PERCENT MAN 1 % (0-2); EOSINOPHILS ABSOLUTE MAN 7.88 K/mm3 (0.00-0.68); EOSINOPHILS PERCENT MAN 9 % (0-6); LYMPHOCYTES ABSOLUTE MAN 1.75 K/mm3 (0.84-5.20); LYMPHOCYTES PERCENT MAN 2 % (21-46); METAMYELOCYTE ABSOLUTE MAN 2.62 K/mm3 (0.00-0.00); METAMYELOCYTE PERCENT MAN 3 % (0-0); MONOCYTES PERCENT MAN 4 % (4-13); MYELOCYTE ABSOLUTE MAN 5.25 K/mm3 (0.00-0.00); MYELOCYTE PERCENT MAN 6 % (0-0); SEG NEUTROPHILS PERCENT MAN 67 % (41-73); TOTAL CELLS COUNTED 100
--- NOTE | 2019-02-16 14:06 | NUR ---
Christian was resting and appeared comfortable and well supported by family. His daughter was at the bedside providing attention and love. I engaged her in conversation, explored Christian's belief system, and offered active listening and reassurance. Christian remained friendly but disengaged throughout. His daughter was kind, warm conversant. She affirmed that Christian adheres to traditional modes of rastafari thought and practice. I volunteerd to maintain contact with Christian during his hospitalization and provide prayer and encouragement. She expressed gratitude and acceptance.
--- NOTE | 2019-02-16 17:25 | NUR ---
SHIFT SUMMARY PT AXO TO SELF, FOLLOWING DIRECTIONS AND FAMILY. FORGETFUL. UP TO CHAIR FOR MOST OF THE SHIFT, HEAVY 2 ASSIST PIVOT TRANSFER. VSS. NO ACUTE CHANGES THIS SHIFT. PT DENIES PAIN, APPEARS PAINFUL WITH MOVEMENT OF RIGHT SHOULDER BUT ABSENT OF PAIN OTHERWISE. PT TOLERATING EATING WITH ASSISTANCE AND SMALL BITES. CALL LIGHT WITHIN REACH. CHAIR ALARM ON
[2019-02-17 05:34] LABS: Hematocrit 33.4 % (37.0-53.0); Mean Corpuscular HGB 25.3 pg (26.0-34.0); Mean Corpuscular HGB Conc 29.9 g/dL (31.5-36.5); Mean Corpuscular Volume 84 fL (80-100); NRBC ABSOLUTE 2.59 K/mm3 (0.00-0.02); NRBC Auto 3.3 /100 WBC (0.0-0.2); Platelet Count 271 K/mm3 (150-400); RDW Coefficient Variation 23.7 % (11.7-14.2); RDW Standard Deviation 68.5 fL (35.1-46.3); Red Blood Cell Count 3.96 M/mm3 (4.30-5.90)
[2019-02-17 05:43] LABS: White Blood Cell Count 79.22 K/mm3 (4.00-11.30)
[2019-02-17 05:50] LABS: Albumin, Blood 2.3 g/dL (3.4-5.0); Anion Gap 10 mmol/L (6-16); Blood Urea Nitrogen 66 mg/dL (8-24); Bun/Creatinine Ratio 24.1 (12.0-20.0); CO2, Blood 23 mmol/L (21-32); Calcium, Blood 8.1 mg/dL (8.5-10.1); Chloride, Blood 103 mmol/L (98-108); Creatinine, Blood 2.74 mg/dL (0.60-1.20); Glomerular Filtration Rate 24 (60-); Glucose, Blood 180 mg/dL (70-99); Magnesium, Blood 2.4 mg/dL (1.6-2.4); Potassium, Blood 4.7 mmol/L (3.5-5.5); Sodium, Blood 136 mmol/L (136-145)
[2019-02-17 05:59] LABS: BAND PERCENT MAN 16 % (0-8); BASOPHILS ABSOLUTE MAN 0.79 K/mm3 (0.00-0.23); BASOPHILS PERCENT MAN 1 % (0-2); EOSINOPHILS ABSOLUTE MAN 4.75 K/mm3 (0.00-0.68); EOSINOPHILS PERCENT MAN 6 % (0-6); LYMPHOCYTES ABSOLUTE MAN 4.75 K/mm3 (0.84-5.20); LYMPHOCYTES PERCENT MAN 6 % (21-46); METAMYELOCYTE ABSOLUTE MAN 3.16 K/mm3 (0.00-0.00); METAMYELOCYTE PERCENT MAN 4 % (0-0); MONOCYTES ABSOLUTE MAN 6.33 K/mm3 (0.16-1.47); MONOCYTES PERCENT MAN 8 % (4-13); MYELOCYTE ABSOLUTE MAN 1.58 K/mm3 (0.00-0.00); MYELOCYTE PERCENT MAN 2 % (0-0); NEUTROPHILS ABSOLUTE MAN 57.83 K/mm3 (1.96-9.15); SEG NEUTROPHILS PERCENT MAN 57 % (41-73); TOTAL CELLS COUNTED 100
--- NOTE | 2019-02-17 06:07 | NUR ---
SHIFT SUMMARY PT SLOW TO RESPOND TO QUESTIONS BUT ANSWERS WITH SHORT ONE WORD ANSWERS. INCONT OF URINE AND SOFT UNFORMED BM. HE WAS ABLE TO SLEEP THROUGHOUT NIGHT. SUPERVISION WHEN EATING AND HE ATE HIS DINNER LATE AT APPROX 2230. BED ALARM IN USE.
--- NOTE | 2019-02-17 17:37 | NUR ---
SHIFT SUMMARY. A&OX1, PLEASANAT. BED AND CHAIR ALARM ACTIVATED FOR SAFETY. PT IS 2 MAX ASSIST PIVOT WIT GB TO CHAIR. PT UP TO CHAIR FOR ALL MEALS, SUPERVISION AND FEEDING ASSISTANCE. PT INCONTINENT, 3 UNFORMED STOOLS TODAY, STOOL SOFTENERS HELD TODAY. INCONTINENCE CARE AND BARRIER CREAM APPLIED ROUTINELY. PT WITH NO S/SX OF PAIN OR DISCOMFORT. NO DYSPNEA OBSERVED OR REPORTED. NO N/V. PT HYPOTENSIVE, SOME BP AND HR MEDS HELD THIS AM PER PARAMETERS. NO NEW CHANGES THIS SHIFT.
--- NOTE | 2019-02-17 19:04 | NUR ---
1825 PT CONTINUES WITH NOSE BLEED, HAS BEEN INTERMITTENT THROUGHOUT SHIFT, CONTROLABLE WITH GAUZE PACKING AND APPLIED PRESSURE. AT THIS TIME NOSE BLEED IS AT CONSTANT DRIP. DR. SALAZAR NOTIFIED, RECIEVED ORDER FOR AFRIN SPRAY AND SHE REPORTED THAT SHE WOULD BE TO PT'S ROOM TO PACK WITH RHINO ROCKET PACKING. 1830 PACKING [address]ACED IN LEFT NARE. 183 PT REMOVED PACKING. 184 NOTIFIED. PLACED ANOTHER PACKING IN L NARE. 185 PT WITH PACKING REMOVED AGAIN 1900 AFRIN ADMINISTERED BY JASPREET RN. BLEEDING APPEARS TO HAVE DECREASED AFTER SECOND PACKING.
--- NOTE | 2019-02-18 04:48 | NUR ---
78 Y/O MALE RESTED COMFORTABLY ALL EVENING. PT INCONTINENT URINE LAST NIGHT X 3 LARGE AMOUNT. PT REMOVED RIGHT NARE RHINO ROCKET UPON START OF SHIFT WITH NO ACTIVE BLEEDING NOTED. PT ENCOURAGED AND REMINDED TO NOT PUT HANDS IN NARES TO ALLOW HEAL. PT ALERT AND ORIENTED X1. PT DENIES PAIN OR NAUSEA. PTS BED LOW POSITION, CALL LIGHT AT SIDE, BED ALARM APPLIED.
[2019-02-18 05:04] LABS: Hematocrit 30.5 % (37.0-53.0); Hemoglobin 9.2 g/dL (13.5-17.5); Mean Corpuscular HGB 25.6 pg (26.0-34.0); Mean Corpuscular HGB Conc 30.2 g/dL (31.5-36.5); Mean Corpuscular Volume 85 fL (80-100); NRBC ABSOLUTE 2.28 K/mm3 (0.00-0.02); Platelet Count 284 K/mm3 (150-400); RDW Coefficient Variation 23.5 % (11.7-14.2); RDW Standard Deviation 69.4 fL (35.1-46.3)
[2019-02-18 05:26] LABS: Albumin, Blood 2.2 g/dL (3.4-5.0); Anion Gap 8 mmol/L (6-16); Blood Urea Nitrogen 63 mg/dL (8-24); CO2, Blood 21 mmol/L (21-32); Calcium, Blood 7.7 mg/dL (8.5-10.1); Chloride, Blood 106 mmol/L (98-108); Creatinine, Blood 2.62 mg/dL (0.60-1.20); Glomerular Filtration Rate 25 (60-); Glucose, Blood 94 mg/dL (70-99); Magnesium, Blood 2.4 mg/dL (1.6-2.4); Phosphorus, Blood 4.9 mg/dL (2.5-4.9); Potassium, Blood 4.8 mmol/L (3.5-5.5); Sodium, Blood 135 mmol/L (136-145)
[2019-02-18 05:29] LABS: White Blood Cell Count 75.98 K/mm3 (4.00-11.30)
[2019-02-18 05:42] LABS: BAND PERCENT MAN 12 % (0-8); BASOPHILS ABSOLUTE MAN 1.51 K/mm3 (0.00-0.23); BASOPHILS PERCENT MAN 2 % (0-2); EOSINOPHILS ABSOLUTE MAN 1.51 K/mm3 (0.00-0.68); EOSINOPHILS PERCENT MAN 2 % (0-6); LYMPHOCYTES ABSOLUTE MAN 3.03 K/mm3 (0.84-5.20); LYMPHOCYTES PERCENT MAN 4 % (21-46); METAMYELOCYTE ABSOLUTE MAN 0.75 K/mm3 (0.00-0.00); METAMYELOCYTE PERCENT MAN 1 % (0-0); MONOCYTES ABSOLUTE MAN 2.27 K/mm3 (0.16-1.47); MONOCYTES PERCENT MAN 3 % (4-13); MYELOCYTE ABSOLUTE MAN 1.51 K/mm3 (0.00-0.00); MYELOCYTE PERCENT MAN 2 % (0-0); NEUTROPHILS ABSOLUTE MAN 65.34 K/mm3 (1.96-9.15); SEG NEUTROPHILS PERCENT MAN 74 % (41-73); TOTAL CELLS COUNTED 100
--- NOTE | 2019-02-18 06:17 | NUR ---
PT TURNED EVERY 2 HOURS BY STAFF WITH PITTING EDEMA +4 NOTED ENTIRE BODY.
--- NOTE | 2019-02-18 16:35 | NUR ---
SHIFT SUMMARY. ORIENTATED TO SELF AND FAMILY, PT OCCASSIONALLY REMEMBERS STAFF'S NAMES. PT IS PLEASANT AND COOPERATIVE. APPEARED MORE ALERT TODAY THAN YESTERDAY. PT DENIES PAIN, SOB, N/V. NO S/SX OF DISTRESS OR DISCOMFORT. PT IS NOT ABLE TO BARE WEIGHT, KIERAN LIFT WAS REQUIRED TO TRANSFER PT TO CHAIR THIS AM. PT STAYED IN BED FOR LUNCH HIS BUTTOCKS APPEARED MORE RED AFTER BEING PUT BACK TO BED AFTER BREAKFAST. SPOKE WITH DAUGHTER ABOUT PLAN OF CARE AND SHE WAS AGREEABLE. NO NEW CHANGES OR CONCERNS.
[2019-02-19 04:45] LABS: Hematocrit 32.1 % (37.0-53.0); Hemoglobin 9.6 g/dL (13.5-17.5)
--- NOTE | 2019-02-19 04:55 | NUR ---
78 Y/O MALE RESTED COMFORTABLY ALL NIGHT. PT REQUIRED TURNING Q2H AND HYGIENE CARE BY NURSING STAFF. PT UNABLE TO REPOSITION SELF WITH +2 PITTING EDEMA NOTED THROUGHOUT ENTIRE BODY. NO ACTIVE NO BLEEDS NOTED LAST NIGHT WITH PATIENT NOT PICKING AT NARES. PT APPEARS TO HAVE NO PAIN OR NAUSEA. PTS BED ALARM APPLIED, CALL LIGHT AT SIDE, BED LOW POSITION.
[2019-02-19 05:00] LABS: Albumin, Blood 2.3 g/dL (3.4-5.0); Anion Gap 6 mmol/L (6-16); Blood Urea Nitrogen 63 mg/dL (8-24); Bun/Creatinine Ratio 23.6 (12.0-20.0); CO2, Blood 22 mmol/L (21-32); Calcium, Blood 7.6 mg/dL (8.5-10.1); Chloride, Blood 106 mmol/L (98-108); Creatinine, Blood 2.67 mg/dL (0.60-1.20); Glomerular Filtration Rate 25 (60-); Glucose, Blood 143 mg/dL (70-99); Magnesium, Blood 2.5 mg/dL (1.6-2.4); Phosphorus, Blood 5.1 mg/dL (2.5-4.9); Potassium, Blood 4.8 mmol/L (3.5-5.5); Sodium, Blood 134 mmol/L (136-145)
--- NOTE | 2019-02-19 18:37 | NUR ---
SHIFT SUMMARY. PT MORE ALERT TODAY, ABLE TO FEED SELF. PT/OT REPORT THAT PT ONLY REQUIRED ONE PERSON MAX ASSIST PIVOT WITH GB TO CHAIR. Q2 TURN WHILE IN BED. L ARM NO LONGER RED, CONTINUES WITH EDEMA. PT DENIES PAIN, SOB, N/V. NO NEW CHANGES OR CONCERNS.
[2019-02-20 04:57] LABS: Hematocrit 32.5 % (37.0-53.0); Hemoglobin 9.6 g/dL (13.5-17.5)
--- NOTE | 2019-02-20 05:09 | NUR ---
SUMMARY: 78 Y/O MALE RESTED COMFORTABLY ALL EVENING, ALL FOLLOW ALL SIMPLE VERBAL COMMANDS, VOICES SINGLE WORDS OF YES OR NO, PLEASANT, ALERT AND ORIENTED X 1. PT CLEANSED AND TURNED Q2H BY STAFF. PT HAD LARGE FORMED BROWN STOOL LAST NIGHT. PT VOICED NO PAIN OR NAUSEA, NO BLEEDING VIA NARES NOTED. PTS DAUGHTER AT SIDE AT BEGINNING OF SHIFT. PTS BED ALARM APPLIED, BED LOW POSITION, CALL LIGHT AT SIDE.
[2019-02-20 05:12] LABS: Albumin, Blood 2.3 g/dL (3.4-5.0); Anion Gap 9 mmol/L (6-16); Blood Urea Nitrogen 60 mg/dL (8-24); Bun/Creatinine Ratio 23.3 (12.0-20.0); CO2, Blood 19 mmol/L (21-32); Calcium, Blood 7.5 mg/dL (8.5-10.1); Chloride, Blood 106 mmol/L (98-108); Creatinine, Blood 2.58 mg/dL (0.60-1.20); Glomerular Filtration Rate 26 (60-); Glucose, Blood 138 mg/dL (70-99); Magnesium, Blood 2.5 mg/dL (1.6-2.4); Sodium, Blood 134 mmol/L (136-145)
--- NOTE | 2019-02-20 17:29 | NUR ---
PT IS ALERT. HE IS ORIENTED TO HIMSELF. PT IS COOPERATIVE WITH CARE. ATTENDS IN PLACE. DR. BUNN ASKED FOR A BLADDER SCAN THIS MORNING AND AFTERNOON. THE MORNING BLADDER SCAN WAS 315 ML AND THE AFTERNOON BLADDER SCAN WAS 20OML. PT HAS BEEN TURNED EVERY TWO HOURS. HE HAS SPENT MOST OF THE DAY UP IN THE [facility]. HE PARTICIPATED WITH OT AND ST TODAY. HIS DIET WAS CHANGED TO PUREE. HIS EDEMA WENT DOWN NOTICEBLE SINCE THIS MORNING. HIS ABDOMEN IS NOTICEABLY DISTENDED AND SOFT. NO COMPLAINTS OF PAIN. WILL CONTINUE TO MONITOR
--- NOTE | 2019-02-21 04:15 | NUR ---
SUMMARY: 78 Y/O MALE RESTED COMFORTABLY ALL EVENING AND WAS REPOSITIONED EVERY 2 HOURS BY STAFF WITHF CLEAN ATTENDS DIAPERS APPLIED. PT ALERT AND ORIENTED X 1, PT HAS DECREASED GENERALIZED EDEMA NOTED TO ENTIRE BODY TONIGHT (+2). PT WAS TRANSFERRED FROM CHAIR TO BED THIS EVENING, PT UNABLE TO BEAR ANY WEIGHT OR ASSIST WITH TRANSFER (STAFF DID TRANSFER X 3 ASSIST WITH GAIT BELT). PT DENIES PAIN OR NAUSEA. PTS BED ALARM APPLIED, BED LOW POSITION, CALL LIGHT AT SIDE.
[2019-02-21 05:07] LABS: Hematocrit 32.3 % (37.0-53.0); Hemoglobin 9.7 g/dL (13.5-17.5)
[2019-02-21 05:21] LABS: Albumin, Blood 2.3 g/dL (3.4-5.0); Anion Gap 7 mmol/L (6-16); Blood Urea Nitrogen 60 mg/dL (8-24); Bun/Creatinine Ratio 23.5 (12.0-20.0); CO2, Blood 21 mmol/L (21-32); Calcium, Blood 7.6 mg/dL (8.5-10.1); Chloride, Blood 105 mmol/L (98-108); Creatinine, Blood 2.55 mg/dL (0.60-1.20); Glomerular Filtration Rate 26 (60-); Glucose, Blood 132 mg/dL (70-99); Magnesium, Blood 2.5 mg/dL (1.6-2.4); Phosphorus, Blood 5.2 mg/dL (2.5-4.9); Potassium, Blood 4.8 mmol/L (3.5-5.5); Sodium, Blood 133 mmol/L (136-145)
--- NOTE | 2019-02-21 18:40 | NUR ---
SHIFT SUMMARY PT FOLLOWS SIMPLE COMMANDS. Q 2 TURNS. INCONTINENT ATTENDS IN PLACE. ASSISTANCE NEEDED WITH MEALS. EATING AND DRINKING WELL. UP IN CHAIR FOR AFTERNOON. DENIES PAIN. HYPOTENSION NOTED AND TREATED. CBG'S AC HS. CHEMO PRECAUTIONS.
--- NOTE | 2019-02-22 05:40 | NUR ---
SUMMARY: 78 Y/O MALE RESTED COMFORTABLY ALL EVENING IN BED. PT WAS TRANSFERRED FROM BEDSIDE CHAIR TO BED VIA KIERAN LIFT X 3 ASSIST. NOTE: PT UNABLE TO BEAR ANY WEIGHT TO LEGS, BILATERAL FOOT PUSH AND PULLS WEAK AND EQUAL. PT ALERT AND ORIENTED X 1, ANSWERS QUESTIONS WITH SIMPLE YES OR NO. PT DENIES PAIN OR NAUSEA. PTS BED ALARM APPLIED, BED LOW POSITION, CALL LIGHT AT SIDE. PT REPOSITIONED Q2H VIA STAFF AND FRESH ATTENDS DIAPERS APPLIED. PT TOOK ALL MEDS CRUSHED IN APPLESAUCE.
[2019-02-22 06:08] LABS: Hematocrit 33.7 % (37.0-53.0); Hemoglobin 10.1 g/dL (13.5-17.5); Mean Corpuscular HGB 24.7 pg (26.0-34.0); Mean Platelet Volume 11.9 fL (9.1-12.4); NRBC Auto 3.8 /100 WBC (0.0-0.2); Platelet Count 422 K/mm3 (150-400); RDW Coefficient Variation 24.1 % (11.7-14.2); RDW Standard Deviation 68.2 fL (35.1-46.3); Red Blood Cell Count 4.09 M/mm3 (4.30-5.90)
[2019-02-22 06:28] LABS: Albumin, Blood 2.4 g/dL (3.4-5.0); Anion Gap 7 mmol/L (6-16); Blood Urea Nitrogen 59 mg/dL (8-24); Bun/Creatinine Ratio 24.6 (12.0-20.0); CO2, Blood 21 mmol/L (21-32); Calcium, Blood 7.8 mg/dL (8.5-10.1); Chloride, Blood 104 mmol/L (98-108); Glomerular Filtration Rate 28 (60-); Glucose, Blood 171 mg/dL (70-99); Magnesium, Blood 2.6 mg/dL (1.6-2.4); Potassium, Blood 4.8 mmol/L (3.5-5.5); Sodium, Blood 132 mmol/L (136-145)
[2019-02-22 06:35] LABS: Mean Corpuscular Volume 82 fL (80-100); White Blood Cell Count 66.45 K/mm3 (4.00-11.30)
[2019-02-22 06:41] LABS: BAND PERCENT MAN 12 % (0-8); BASOPHILS ABSOLUTE MAN 0.66 K/mm3 (0.00-0.23); BASOPHILS PERCENT MAN 1 % (0-2); EOSINOPHILS ABSOLUTE MAN 1.99 K/mm3 (0.00-0.68); EOSINOPHILS PERCENT MAN 3 % (0-6); LYMPHOCYTES ABSOLUTE MAN 2.65 K/mm3 (0.84-5.20); LYMPHOCYTES PERCENT MAN 4 % (21-46); METAMYELOCYTE ABSOLUTE MAN 1.32 K/mm3 (0.00-0.00); METAMYELOCYTE PERCENT MAN 2 % (0-0); MONOCYTES ABSOLUTE MAN 2.65 K/mm3 (0.16-1.47); MONOCYTES PERCENT MAN 4 % (4-13); MYELOCYTE ABSOLUTE MAN 0.66 K/mm3 (0.00-0.00); MYELOCYTE PERCENT MAN 1 % (0-0); NEUTROPHILS ABSOLUTE MAN 56.48 K/mm3 (1.96-9.15); SEG NEUTROPHILS PERCENT MAN 73 % (41-73); TOTAL CELLS COUNTED 100
--- NOTE | 2019-02-22 17:41 | NUR ---
PT AOX1 TODAY AND VERY TIRED. PT GOES TO SLEEP QUICKLY, BUT WAS ABLE TO TAKE ALL OF HIS MEDICAITON. PT LIFTED INTO CHAIR FOR THE AFTERNOON. TURNED Q2 TO KEEP SKIN HEALTHY. NO DISTRESS NOTED AT THIS TIME WILL CONTINUE TO MONITOR.
[2019-02-23 04:42] LABS: Hematocrit 32.5 % (37.0-53.0); Hemoglobin 9.7 g/dL (13.5-17.5)
[2019-02-23 05:02] LABS: Albumin, Blood 2.4 g/dL (3.4-5.0); Anion Gap 6 mmol/L (6-16); Blood Urea Nitrogen 57 mg/dL (8-24); Bun/Creatinine Ratio 23.8 (12.0-20.0); CO2, Blood 22 mmol/L (21-32); Calcium, Blood 7.8 mg/dL (8.5-10.1); Chloride, Blood 105 mmol/L (98-108); Creatinine, Blood 2.39 mg/dL (0.60-1.20); Glomerular Filtration Rate 28 (60-); Glucose, Blood 154 mg/dL (70-99); Magnesium, Blood 2.6 mg/dL (1.6-2.4); Potassium, Blood 4.7 mmol/L (3.5-5.5); Sodium, Blood 133 mmol/L (136-145)
--- NOTE | 2019-02-23 06:21 | NUR ---
SUMMARY: 78 Y/O MALE RESTED COMFORTABLY IN BED ALL EVENING. PT WAS TURNED Q2H AND CLEANSED UP BY STAFF. PTS COCCYX REDDENED WITH NEW MEPLEX APPLIED BY THIS NURSE. PTS ABLE TO FOLLOW ALL SIMPLE VERBAL COMMANDS. PT VOICED NO PAIN OR NAUSEA. PTS BED IN LOW POSITION, CALL LIGHT AT SIDE, BED ALARM APPLIED.
--- NOTE | 2019-02-23 17:50 | NUR ---
Shift Summary A/O to family and self, cooperative with care. Patient has been more awake with no c/o of pain t/o this shift. TQ2 with staff, takes meds crushed with applesauce. No acute changes this shift. Will continue to monitor until shift change.
--- NOTE | 2019-02-23 18:15 | NUR ---
STUDENT HAD CARE OF PT TODAY, PLEASE REFER TO STUDENT NOTES FOR SHIFT SUMMARY.
[2019-02-24 05:04] LABS: Hematocrit 31.8 % (37.0-53.0); Hemoglobin 9.7 g/dL (13.5-17.5)
[2019-02-24 05:33] LABS: Albumin, Blood 2.5 g/dL (3.4-5.0); Anion Gap 7 mmol/L (6-16); Blood Urea Nitrogen 58 mg/dL (8-24); Bun/Creatinine Ratio 25.4 (12.0-20.0); CO2, Blood 21 mmol/L (21-32); Calcium, Blood 7.9 mg/dL (8.5-10.1); Chloride, Blood 105 mmol/L (98-108); Creatinine, Blood 2.28 mg/dL (0.60-1.20); Glomerular Filtration Rate 29 (60-); Glucose, Blood 166 mg/dL (70-99); Magnesium, Blood 2.5 mg/dL (1.6-2.4); Phosphorus, Blood 4.6 mg/dL (2.5-4.9); Potassium, Blood 4.9 mmol/L (3.5-5.5); Sodium, Blood 133 mmol/L (136-145)
--- NOTE | 2019-02-24 17:24 | NUR ---
SHIFT SUMMARY PATIENT A&O TO SELF AND FOLLOWING DIRECTIONS. DENIES ANY PAIN OR SOB. MEDICATED PER E DEC. ASPIRATION PRECAUTIONS, MEDS CRUSHED IN APPLESAUCE. Q2 REPOSITION. HEEL PROTECTORS PLACED. SCDS ON. NO ACUTE CHANGES THIS SHIFT. BED ALARM IN PLACE. RN WILL CONTINUE TO MONITOR.
[2019-02-25 05:21] LABS: Hematocrit 33.1 % (37.0-53.0); Hemoglobin 9.9 g/dL (13.5-17.5)
[2019-02-25 06:00] LABS: Albumin, Blood 2.5 g/dL (3.4-5.0); Anion Gap 8 mmol/L (6-16); Blood Urea Nitrogen 57 mg/dL (8-24); Bun/Creatinine Ratio 24.7 (12.0-20.0); CO2, Blood 22 mmol/L (21-32); Calcium, Blood 8.1 mg/dL (8.5-10.1); Chloride, Blood 103 mmol/L (98-108); Creatinine, Blood 2.31 mg/dL (0.60-1.20); Glomerular Filtration Rate 29 (60-); Glucose, Blood 144 mg/dL (70-99); Magnesium, Blood 2.5 mg/dL (1.6-2.4); Phosphorus, Blood 4.8 mg/dL (2.5-4.9); Potassium, Blood 4.8 mmol/L (3.5-5.5); Sodium, Blood 133 mmol/L (136-145)
--- NOTE | 2019-02-25 17:40 | NUR ---
SHIFT SUMMARY THE PATIENT PRESENTED THIS SHIFT WITH VITALS WNL, A&O TO SELF AND WITH LUNG SOUNDS THAT WERE DIMINISHED THROUGHOUT. THE PATIENT HAS BEEN CHANGED TWICE TODAY WITH A SMALL B/M ON THE SECOND. A MEPELEX WAS PUT ON HIS COCCYX AREA FOR PROTECTION OF HIS KALE AREA. THE PATIENT HAS SLEPT MOST OF THE SHIFT AND HAS EATEN LITTLE. THE PATIENT IS EASILY AWAKEN AND TAKES MEDICATIONS ASKED. THE PATUENT IS EATING HIS DINNER AT THIS TIME, IN BETWEEN NAPS, WILL CONTINUE TO MONITOR.
[2019-02-26 04:31] LABS: Hematocrit 32.4 % (37.0-53.0)
[2019-02-26 04:48] LABS: Albumin, Blood 2.3 g/dL (3.4-5.0); Anion Gap 8 mmol/L (6-16); Blood Urea Nitrogen 57 mg/dL (8-24); Bun/Creatinine Ratio 25.9 (12.0-20.0); CO2, Blood 23 mmol/L (21-32); Calcium, Blood 7.9 mg/dL (8.5-10.1); Chloride, Blood 103 mmol/L (98-108); Glomerular Filtration Rate 31 (60-); Glucose, Blood 129 mg/dL (70-99); Magnesium, Blood 2.5 mg/dL (1.6-2.4); Phosphorus, Blood 4.8 mg/dL (2.5-4.9); Potassium, Blood 4.8 mmol/L (3.5-5.5); Sodium, Blood 134 mmol/L (136-145)
--- NOTE | 2019-02-26 19:26 | NUR ---
PT WAS ALERT AND ORIENTED THIS MORNING. SLOW TO RESPOND. DIFFICULT TRANSFER WITH 2PA AND GAIT BELT. PT GOT UP IN CHAIR FOR BREAKFAST, LUNCH AND DINNER. AFTER LUNCH, THE FAMILY REPORTED THE PT WAS ACTING STRANGE BECAUSE HE WAS NOT COMMUNICATING EFFECTIVELY AND COULD HARDLY KEEP EYES OPEN HE WAS SO TIRED. VITAL SIGNS WERE NORMAL, BLOOD GLUCOSE WAS 186. DR. SOTO CAME TO SEE THE PT AT THIS TIME AND ASKED THAT WE KEEP AN EYE ON HIS TEMPERATURE OVER THE NIGHT.
[2019-02-27 04:43] LABS: Hematocrit 32.4 % (37.0-53.0); Hemoglobin 9.8 g/dL (13.5-17.5)
[2019-02-27 04:59] LABS: Albumin, Blood 2.4 g/dL (3.4-5.0); Anion Gap 8 mmol/L (6-16); Blood Urea Nitrogen 55 mg/dL (8-24); Bun/Creatinine Ratio 24.3 (12.0-20.0); CO2, Blood 22 mmol/L (21-32); Calcium, Blood 7.9 mg/dL (8.5-10.1); Chloride, Blood 103 mmol/L (98-108); Creatinine, Blood 2.26 mg/dL (0.60-1.20); Glomerular Filtration Rate 30 (60-); Glucose, Blood 165 mg/dL (70-99); Magnesium, Blood 2.5 mg/dL (1.6-2.4); Phosphorus, Blood 4.9 mg/dL (2.5-4.9); Potassium, Blood 4.8 mmol/L (3.5-5.5); Sodium, Blood 133 mmol/L (136-145)
--- NOTE | 2019-02-27 06:48 | NUR ---
SUMMARY: ACUTE ON CHRONIC KIDNEY INJURY ON HOSPITALIST SERVICE WITH BUNN FOLLOWING. VSS, AFEBRILE. TOLERATED UP TO CHAIR FOR MEAL AND PUREE INTAKE WITHOUT SWALLOWING DIFFICULTY OR COUGHING FOR AN HOUR AFTERWARDS. TOLERATES LIFT TRANSFER WELL AND FOLLOWS SIMPLE INSTRUCTIONS. ANTICIPATE EVALUATION FOR RETURN TO [facility] IN [place] TODAY.
[2019-02-27] MEDS ORDERED: CYAN500 PO (11:18)
[2019-02-27] MEDS ORDERED: HYDURE500 PO (11:19)
[2019-02-27] MEDS ORDERED: MIDO5 PO (11:19)
[2019-02-27] MEDS ORDERED: Florastor250 MG PO (11:19)
[2019-02-27] MEDS ORDERED: TAMS.4ER PO (11:20)
--- NOTE | 2019-02-27 12:59 | NUR ---
DISCHARGE NOTE 2 PERSON ASSIST TO WHEELCHAIR AND SENT WITH [facility] TO [facility]
== END 2019-02-27 13:15 | disposition home health service (06) | DRG 683 ==
LOC: ER 23:01 → PCU 23:08 → MEDS 02-10 14:57 → ENPENDDIS 02-24 10:53 → MEDS 02-27 13:15
PROVIDERS: Emergency Medicine; Family Medicine; Internal Medicine; Internal Medicine Nephrology; ADMIT Hospitalist
DX: N17.9 Acute kidney failure, unspecified (principal); R78.81 Bacteremia; N39.0 Urinary tract infection, site not specified; C94.6 Myelodysplastic disease, not elsewhere classified; C92.10 Chronic myeloid leukemia, BCR/ABL-positive, not having achieved remission; I50.32 Chronic diastolic (congestive) heart failure; E87.1 Hypo-osmolality and hyponatremia; I82.612 Acute embolism and thrombosis of superficial veins of left upper extremity; I95.9 Hypotension, unspecified; R04.0 Epistaxis; E11.22 Type 2 diabetes mellitus with diabetic chronic kidney disease; N18.4 Chronic kidney disease, stage 4 (severe); I48.0 Paroxysmal atrial fibrillation; E11.40 Type 2 diabetes mellitus with diabetic neuropathy, unspecified; E11.51 Type 2 diabetes mellitus with diabetic peripheral angiopathy without gangrene; E66.9 Obesity, unspecified; F01.50 Vascular dementia, unspecified severity, without behavioral disturbance, psychotic disturbance, mood disturbance, and anxiety; E03.9 Hypothyroidism, unspecified; N25.81 Secondary hyperparathyroidism of renal origin; B95.0 Streptococcus, group A, as the cause of diseases classified elsewhere; E87.70 Fluid overload, unspecified; R33.9 Retention of urine, unspecified; E83.41 Hypermagnesemia; R59.0 Localized enlarged lymph nodes; I25.5 Ischemic cardiomyopathy; I25.10 Atherosclerotic heart disease of native coronary artery without angina pectoris; E87.5 Hyperkalemia; E83.42 Hypomagnesemia; D63.1 Anemia in chronic kidney disease; D63.0 Anemia in neoplastic disease; E86.9 Volume depletion, unspecified; E87.6 Hypokalemia; E83.39 Other disorders of phosphorus metabolism; E88.09 Other disorders of plasma-protein metabolism, not elsewhere classified; Z95.810 Presence of automatic (implantable) cardiac defibrillator; Z88.1 Allergy status to other antibiotic agents; Z88.0 Allergy status to penicillin; Z88.2 Allergy status to sulfonamides; Z68.25 Body mass index [BMI] 25.0-25.9, adult; Z95.5 Presence of coronary angioplasty implant and graft; Z95.1 Presence of aortocoronary bypass graft; Z79.02 Long term (current) use of antithrombotics/antiplatelets; Z79.4 Long term (current) use of insulin; Z79.899 Other long term (current) drug therapy; Z87.891 Personal history of nicotine dependence; Z86.73 Personal history of transient ischemic attack (TIA), and cerebral infarction without residual deficits
CPT/HCPCS: 23350; 30901; 36415; 51703; 70450; 71046; 76770; 80048; 80053; 80069; 80202; 81001; 82274; 82947; 83735; 84100; 84132; 84153; 84154; 84443; 85014; 85018; 85025; 87040; 87086; 92526; 92610; 93308; 93321; 93971; 96360-59; 96361; 96361-59; 96365; 96366; 96367; 96372; 96375; 97110; 97162; 97166; 97530; 97535; 99284-25; G0378; J0881; J1940; J1956; J3370; J3480; J7030; J7050

== ENCOUNTER → 2019-06-04 | Outpatient (CLI) | payer OTHER ==
[~2019-06-04] MED LIST changes: +ALLO100 PO; +AURYXIA PO; +CHOL10002 PO; +CYAN500 PO; +Florastor250 MG PO; +HYDURE500 PO; +LANTUS SC; +LEVSOD112 PO; +MIDO5 PO; +Novolog100 UNIT/2; +TAMS.4ER PO; +VITAMIN B12 SC
[2019-06-04 11:21] LABS: Albumin, Blood 3.6 g/dL (3.4-5.0); Anion Gap 9 mmol/L (6-16); Blood Urea Nitrogen 95 mg/dL (8-24); Bun/Creatinine Ratio 30.4 (12.0-20.0); CO2, Blood 30 mmol/L (21-32); Chloride, Blood 95 mmol/L (98-108); Creatinine, Blood 3.13 mg/dL (0.60-1.20); Glomerular Filtration Rate 20 (60-); Glucose, Blood 136 mg/dL (70-99); Phosphorus, Blood 6.4 mg/dL (2.5-4.9); Potassium, Blood 3.5 mmol/L (3.5-5.5); Sodium, Blood 134 mmol/L (136-145)
== END | disposition home or self-care (01) ==
LOC: EDSTATUS 08:30 → LAB HD 08:30
PROVIDERS: Internal Medicine Nephrology
DX: N18.4 Chronic kidney disease, stage 4 (severe) (principal)
CPT/HCPCS: 36415; 80069

== ENCOUNTER → 2019-11-23 | Outpatient (CLI) | payer OTHER | END | disposition home or self-care (01) | LOC: LAB SHORT 11:30 → LAB 11:30 | DX: E11.9 Type 2 diabetes mellitus without complications (principal); F03.90 Unspecified dementia, unspecified severity, without behavioral disturbance, psychotic disturbance, mood disturbance, and anxiety; R60.9 Edema, unspecified | CPT/HCPCS: 87070; 87075; 87077; 87186; 87205 ==

== ENCOUNTER → 2020-03-27 | Outpatient (CLI) | payer OTHER ==
[2020-03-27 18:22] LABS: BASOPHILS ABSOLUTE AUTO 0.28 K/mm3 (0.00-0.23); BASOPHILS PERCENT AUTO 1 % (0-2); Hematocrit 32.7 % (37.0-53.0); Hemoglobin 10.4 g/dL (13.5-17.5); Mean Corpuscular HGB 34.9 pg (26.0-34.0); Mean Corpuscular HGB Conc 31.8 g/dL (31.5-36.5); Mean Corpuscular Volume 110 fL (80-100); NRBC ABSOLUTE 0.23 K/mm3 (0.00-0.02); NRBC Auto 0.6 /100 WBC (0.0-0.2); RDW Coefficient Variation 21.6 % (11.7-14.2); RDW Standard Deviation 85.4 fL (35.1-46.3); Red Blood Cell Count 2.98 M/mm3 (4.30-5.90)
[2020-03-27 18:51] LABS: EOSINOPHILS PERCENT AUTO 2 % (0-6); IMMATURE GRAN ABSOLUTE AUTO 3.52 K/mm3 (0.00-0.10); IMMATURE GRAN PERCENT AUTO 9 % (0-1); LYMPHOCYTES ABSOLUTE AUTO 1.15 K/mm3 (0.84-5.20); LYMPHOCYTES PERCENT AUTO 3 % (21-46); MONOCYTES ABSOLUTE AUTO 2.88 K/mm3 (0.16-1.47); MONOCYTES PERCENT AUTO 7 % (4-13); NEUTROPHILS ABSOLUTE AUTO 30.77 K/mm3 (1.96-9.15); NEUTROPHILS PERCENT AUTO 78 % (41-73)
[2020-03-27 18:57] LABS: Platelet Count 48 K/mm3 (150-400)
[2020-03-27 19:04] LABS: Albumin, Blood 3.3 g/dL (3.4-5.0); Albumin/Globulin Ratio 0.7 (0.8-1.8); Bilirubin, Total 1.1 mg/dL (0.1-1.0); Calcium, Blood 8.1 mg/dL (8.5-10.1); Creatinine, Blood 3.29 mg/dL (0.60-1.20); Globulin, Blood 4.7 g/dL (2.2-4.0); Potassium, Blood 3.9 mmol/L (3.5-5.5)
[2020-03-27 19:20] LABS: BAND PERCENT MAN 4 % (0-8); BASOPHILS PERCENT MAN 0 % (0-2); EOSINOPHILS ABSOLUTE MAN 0.78 K/mm3 (0.00-0.68); EOSINOPHILS PERCENT MAN 2 % (0-6); METAMYELOCYTE ABSOLUTE MAN 1.57 K/mm3 (0.00-0.00); METAMYELOCYTE PERCENT MAN 4 % (0-0); MONOCYTES ABSOLUTE MAN 1.17 K/mm3 (0.16-1.47); MONOCYTES PERCENT MAN 3 % (4-13); NEUTROPHILS ABSOLUTE MAN 35.76 K/mm3 (1.96-9.15); SEG NEUTROPHILS PERCENT MAN 87 % (41-73); TOTAL CELLS COUNTED 100
== END | disposition home or self-care (01) ==
LOC: LAB SHORT 16:56 → LAB 16:56
PROVIDERS: Family Medicine
DX: Z51.81 Encounter for therapeutic drug level monitoring (principal); G30.9 Alzheimer's disease, unspecified; E11.9 Type 2 diabetes mellitus without complications; I50.9 Heart failure, unspecified; Z79.899 Other long term (current) drug therapy
CPT/HCPCS: 80053; 83036; 85025; 85651

== ENCOUNTER → 2020-04-04 | Outpatient (CLI) | payer OTHER ==
[2020-04-04 16:14] LABS: Albumin, Blood 3.1 g/dL (3.4-5.0); Anion Gap 8 mmol/L (6-16); Blood Urea Nitrogen 72 mg/dL (8-24); Bun/Creatinine Ratio 19.9 (12.0-20.0); CO2, Blood 25 mmol/L (21-32); Calcium, Blood 8.1 mg/dL (8.5-10.1); Chloride, Blood 100 mmol/L (98-108); Creatinine, Blood 3.61 mg/dL (0.60-1.20); Glomerular Filtration Rate 17 (60-); Glucose, Blood 122 mg/dL (70-99); Phosphorus, Blood 4.5 mg/dL (2.5-4.9); Sodium, Blood 133 mmol/L (136-145)
[2020-04-04 16:30] LABS: Percent Saturation 36.2 % (20.0-50.0)
== END | disposition home or self-care (01) ==
LOC: LAB SHORT 12:22 → LAB 12:22
PROVIDERS: Internal Medicine Nephrology
DX: N18.3 Chronic kidney disease, stage 3 (moderate) (principal); D63.1 Anemia in chronic kidney disease
CPT/HCPCS: 80069; 82728; 83540; 83550

== ENCOUNTER → 2020-04-14 | Outpatient (CLI) | payer OTHER ==
[2020-04-14 18:16] LABS: Hematocrit 25.9 % (37.0-53.0); Hemoglobin 8.1 g/dL (13.5-17.5); Mean Corpuscular HGB 35.4 pg (26.0-34.0); Mean Corpuscular HGB Conc 31.3 g/dL (31.5-36.5); Mean Corpuscular Volume 113 fL (80-100); NRBC ABSOLUTE 1.43 K/mm3 (0.00-0.02); NRBC Auto 2.5 /100 WBC (0.0-0.2); RDW Standard Deviation 91.1 fL (35.1-46.3); Red Blood Cell Count 2.29 M/mm3 (4.30-5.90)
[2020-04-14 19:16] LABS: Anion Gap 10 mmol/L (6-16); Blood Urea Nitrogen 93 mg/dL (8-24); Bun/Creatinine Ratio 17.3 (12.0-20.0); CO2, Blood 25 mmol/L (21-32); Calcium, Blood 8.2 mg/dL (8.5-10.1); Chloride, Blood 102 mmol/L (98-108); Creatinine, Blood 5.39 mg/dL (0.60-1.20); Glomerular Filtration Rate 11 (60-); Glucose, Blood 220 mg/dL (70-99); Phosphorus, Blood 4.7 mg/dL (2.5-4.9); Potassium, Blood 3.5 mmol/L (3.5-5.5); Sodium, Blood 137 mmol/L (136-145)
[2020-04-14 20:25] LABS: Platelet Count 42 K/mm3 (150-400)
== END | disposition home or self-care (01) ==
LOC: LAB 16:36 → LAB SHORT 16:36
PROVIDERS: Internal Medicine Hematology & Oncology; Internal Medicine Nephrology
DX: N18.4 Chronic kidney disease, stage 4 (severe) (principal); D63.1 Anemia in chronic kidney disease
CPT/HCPCS: 80069; 85027

== ENCOUNTER → 2020-04-21 | Outpatient (CLI) | payer OTHER ==
[2020-04-21 18:25] LABS: BASOPHILS ABSOLUTE AUTO 0.88 K/mm3 (0.00-0.23); BASOPHILS PERCENT AUTO 1 % (0-2); Hematocrit 27.7 % (37.0-53.0); Hemoglobin 8.4 g/dL (13.5-17.5); Mean Corpuscular HGB 35.4 pg (26.0-34.0); Mean Corpuscular HGB Conc 30.3 g/dL (31.5-36.5); Mean Corpuscular Volume 117 fL (80-100); NRBC ABSOLUTE 4.02 K/mm3 (0.00-0.02); NRBC Auto 5.3 /100 WBC (0.0-0.2); RDW Coefficient Variation 23.9 % (11.7-14.2); RDW Standard Deviation 99.6 fL (35.1-46.3); Red Blood Cell Count 2.37 M/mm3 (4.30-5.90)
[2020-04-21 18:39] LABS: EOSINOPHILS ABSOLUTE AUTO 1.53 K/mm3 (0.00-0.68); EOSINOPHILS PERCENT AUTO 2 % (0-6); IMMATURE GRAN ABSOLUTE AUTO 8.38 K/mm3 (0.00-0.10); IMMATURE GRAN PERCENT AUTO 11 % (0-1); LYMPHOCYTES ABSOLUTE AUTO 4.54 K/mm3 (0.84-5.20); LYMPHOCYTES PERCENT AUTO 6 % (21-46); MONOCYTES ABSOLUTE AUTO 5.79 K/mm3 (0.16-1.47); MONOCYTES PERCENT AUTO 8 % (4-13); NEUTROPHILS PERCENT AUTO 72 % (41-73)
[2020-04-21 18:44] LABS: Platelet Count 41 K/mm3 (150-400); White Blood Cell Count 76.22 K/mm3 (4.00-11.30)
[2020-04-21 18:49] LABS: BAND PERCENT MAN 7 % (0-8); BASOPHILS ABSOLUTE MAN 0.76 K/mm3 (0.00-0.23); BASOPHILS PERCENT MAN 1 % (0-2); EOSINOPHILS PERCENT MAN 0 % (0-6); LYMPHOCYTES ABSOLUTE MAN 2.28 K/mm3 (0.84-5.20); LYMPHOCYTES PERCENT MAN 3 % (21-46); METAMYELOCYTE ABSOLUTE MAN 4.57 K/mm3 (0.00-0.00); METAMYELOCYTE PERCENT MAN 6 % (0-0); MONOCYTES ABSOLUTE MAN 4.57 K/mm3 (0.16-1.47); MONOCYTES PERCENT MAN 6 % (4-13); NEUTROPHILS ABSOLUTE MAN 64.02 K/mm3 (1.96-9.15); SEG NEUTROPHILS PERCENT MAN 77 % (41-73); TOTAL CELLS COUNTED 100
[2020-04-21 20:20] LABS: Anion Gap 11 mmol/L (6-16); Blood Urea Nitrogen 108 mg/dL (8-24); Bun/Creatinine Ratio 16.8 (12.0-20.0); CO2, Blood 25 mmol/L (21-32); Calcium, Blood 8.5 mg/dL (8.5-10.1); Chloride, Blood 100 mmol/L (98-108); Creatinine, Blood 6.44 mg/dL (0.60-1.20); Glomerular Filtration Rate 9 (60-); Glucose, Blood 79 mg/dL (70-99); Phosphorus, Blood 5.4 mg/dL (2.5-4.9); Potassium, Blood 3.8 mmol/L (3.5-5.5); Sodium, Blood 136 mmol/L (136-145)
== END | disposition home or self-care (01) ==
LOC: LAB SHORT 16:36 → LAB 16:36
PROVIDERS: Family Medicine
DX: N18.3 Chronic kidney disease, stage 3 (moderate) (principal); D63.1 Anemia in chronic kidney disease; D75.81 Myelofibrosis
CPT/HCPCS: 80069; 85018; 85025